=== PATIENT | female | born 1965 | race African-American/Black ===

== ENCOUNTER → 2016-05-28 | Outpatient (CLI) | payer MEDICAID ==
[~2016-05-28] VITALS: Ht 167.6 cm; Wt 90.7 kg
== END | disposition home or self-care (01) ==
LOC: Rad HDHVI 08:24
PROVIDERS: ATTEND Internal Medicine Cardiovascular Disease
DX: I10 Essential (primary) hypertension (principal); E78.00 Pure hypercholesterolemia, unspecified; R42 Dizziness and giddiness
CPT/HCPCS: 93306

== ENCOUNTER → 2016-05-28 | Outpatient (CLI) | payer MEDICARE, MEDICAID ==
[2016-05-28 11:48] LABS: Urine RBC None Seen /hpf (0 - 4)
[2016-05-28 11:54] LABS: Basophils # (auto) 0.1 uL; Basophils % (auto) 0.9 % (0.0-2.0); Eosinophils # (auto) 0.1 uL; Eosinophils % (auto) 1.2 % (0.0-7.0); Hematocrit 38.5 % (36.0-46.0); Hemoglobin 12.8 g/dL (12.2-16.2); Lymphocytes # (auto) 2.9 uL; Lymphocytes % (auto) 48.6 % (10.0-50.0); Mean Corpuscular Hemoglobin 29.6 pg (28.0-32.0); Mean Corpuscular Hgb Conc. 33.3 g/dL (32.0-36.0); Mean Corpuscular Volume 88.7 fL (80.0-100.0); Mean Platelet Volume 8.6 fL (7.4-10.4); Monocytes # (auto) 0.3 uL; Monocytes % (auto) 5.8 % (0.0-12.0); Neutrophils # (auto) 2.6 uL; Neutrophils % (auto) 43.5 % (37.0-80.0); Platelet Count (auto) 454 10^3/uL (140-450); Red Cell Distribution Width 12.8 % (11.6-16.0); White Blood Cell 5.9 10^3/uL (4.4-10.8)
[2016-05-28 12:16] LABS: Urine Bilirubin Negative (Negative); Urine Blood Negative /uL (Negative); Urine Color Yellow (Yellow); Urine Glucose Normal (Normal); Urine Hyaline Cast FEW /lpf (0 - 2); Urine Ketone Negative (Negative); Urine Mucus FEW (None Seen); Urine Nitrite Negative (Negative); Urine Squamous Epithelial Cell FEW /hpf (<5); Urine Urobilinogen Normal (Negative); Urine pH 6.5 (5.0-8.0)
[2016-05-28 12:17] LABS: Albumin 3.9 g/dL (3.4-5.0); Alkaline Phosphatase 126 U/L (45-117); Anion Gap 10 (5-15); Aspartate Aminotransferase 12 U/L (15-37); BUN/Creatinine Ratio 11.1; Bilirubin, Direct < 0.1 mg/dL (0-0.2); Bilirubin, Total 0.3 mg/dL (0.2-1.0); Blood Urea Nitrogen 11 mg/dL (7-18); Calcium 9.3 mg/dL (8.5-10.1); Carbon Dioxide 29 mmol/L (21-32); Chloride 103 mmol/L (98-107); Cholesterol 272 mg/dL (<200); GFR African American 76 mL/min; GFR Non-African American 63 mL/min; Glucose 95 mg/dL (74-106); HDL Cholesterol 69 mg/dL (40-59); LDL Cholesterol 173 mg/dL (<100); Potassium 3.4 mmol/L (3.5-5.1); Sodium 142 mmol/L (136-145); Total Protein 8.7 g/dL (6.4-8.2); Triglycerides 177 mg/dL (<150)
== END | disposition home or self-care (01) ==
LOC: LAB 11:14
PROVIDERS: ATTEND Internal Medicine
DX: D64.9 Anemia, unspecified (principal); I10 Essential (primary) hypertension; E78.00 Pure hypercholesterolemia, unspecified; E03.9 Hypothyroidism, unspecified; E55.9 Vitamin D deficiency, unspecified; K74.1 Hepatic sclerosis; E11.9 Type 2 diabetes mellitus without complications
CPT/HCPCS: 36415; 80048; 80061; 80076; 81001; 82306; 83036; 84443; 85025

== ENCOUNTER → 2016-06-24 | Outpatient (CLI) | payer MEDICARE, MEDICAID ==
[2016-06-24 10:19] LABS: Basophils # (auto) 0.1 uL; Basophils % (auto) 1.3 % (0.0-2.0); Eosinophils # (auto) 0.2 uL; Eosinophils % (auto) 2.9 % (0.0-7.0); Hematocrit 34.7 % (36.0-46.0); Hemoglobin 11.6 g/dL (12.2-16.2); Lymphocytes % (auto) 36.7 % (10.0-50.0); Mean Corpuscular Hemoglobin 29.3 pg (28.0-32.0); Mean Corpuscular Hgb Conc. 33.5 g/dL (32.0-36.0); Mean Corpuscular Volume 87.5 fL (80.0-100.0); Mean Platelet Volume 8.3 fL (7.4-10.4); Monocytes # (auto) 0.4 uL; Monocytes % (auto) 8.2 % (0.0-12.0); Neutrophils # (auto) 2.7 uL; Neutrophils % (auto) 50.9 % (37.0-80.0); Platelet Count (auto) 390 10^3/uL (140-450); Red Cell Distribution Width 13.5 % (11.6-16.0); White Blood Cell 5.3 10^3/uL (4.4-10.8)
[2016-06-24 10:43] LABS: INR 1.03 (0.9-1.15); Partial Thromboplastin Time 28.2 sec (22.64-33.71); Prothrombin Time 10.6 sec (9.37-12.3)
[2016-06-24 10:55] LABS: Potassium 3.1 mmol/L (3.5-5.1)
[2016-06-24 11:04] LABS: BUN/Creatinine Ratio 13.8; Calcium 8.9 mg/dL (8.5-10.1)
== END | disposition home or self-care (01) ==
LOC: LAB 09:32
PROVIDERS: ATTEND Pain Medicine Interventional Pain Medicine
DX: M54.17 Radiculopathy, lumbosacral region (principal)
CPT/HCPCS: 36415; 80048; 85025; 85610; 85730

== ENCOUNTER → 2016-12-18 | Outpatient (CLI) | payer MEDICARE, MEDICAID ==
[2016-12-18 10:07] LABS: Basophils # (auto) 0 uL; Basophils % (auto) 0.7 % (0.0-2.0); CONDITION Y; Eosinophils # (auto) 0.1 uL; Eosinophils % (auto) 1.5 % (0.0-7.0); Hematocrit 37.8 % (36.0-46.0); Hemoglobin 12.8 g/dL (12.2-16.2); Lymphocytes # (auto) 2.3 uL; Lymphocytes % (auto) 35.7 % (10.0-50.0); Mean Corpuscular Hemoglobin 30.5 pg (28.0-32.0); Mean Corpuscular Hgb Conc. 33.9 g/dL (32.0-36.0); Mean Platelet Volume 7.9 fL (6.9-10.8); Monocytes # (auto) 0.5 uL; Monocytes % (auto) 7.8 % (0.0-12.0); Neutrophils # (auto) 3.5 uL; Neutrophils % (auto) 54.3 % (37.0-80.0); Platelet Count (auto) 477 10^3/uL (140-450); Red Cell Distribution Width 12.9 % (11.8-14.3); White Blood Cell 6.5 10^3/uL (4.4-10.8)
[2016-12-18 10:47] LABS: Albumin 3.7 g/dL (3.4-5.0); BUN/Creatinine Ratio 12.1; Bilirubin, Total 0.4 mg/dL (0.2-1.0); Calcium 9.5 mg/dL (8.5-10.1); Magnesium 2.5 mg/dL (1.6-2.6); Phosphorus 2.6 mg/dL (2.5-4.90); Potassium 3.6 mmol/L (3.5-5.1); Total Protein 8.9 g/dL (6.4-8.2); Uric Acid 7.1 mg/dL (2.6-6.0)
[2016-12-19 08:07] LABS: Rheumatoid Arthritis Factor 11.2 IU/mL (0.0-13.9)
[2016-12-20 17:06] LABS: CCP IgG/IgA 7 units (0-19)
== END | disposition home or self-care (01) ==
LOC: LAB 09:37
PROVIDERS: ATTEND Internal Medicine Nephrology
DX: I10 Essential (primary) hypertension (principal); E55.9 Vitamin D deficiency, unspecified; M79.1 Myalgia; M25.50 Pain in unspecified joint; R53.83 Other fatigue
CPT/HCPCS: 36415; 80053; 82306; 82550; 82728; 83735; 84100; 84550; 85025; 85652; 86141

== ENCOUNTER 2017-01-06 19:01 | Emergency (ER) | payer MEDICARE, MEDICAID ==
[~2017-01-06] VITALS: Ht 182.9 cm; Wt 95.3 kg
[2017-01-06 19:40] VITALS: BP 155/103
[2017-01-06 20:08] LABS: Urine RBC None Seen /hpf (0 - 4)
[2017-01-06 20:45] LABS: Urine Bilirubin Negative (Negative); Urine Blood Negative /uL (Negative); Urine Color Yellow (Yellow); Urine Glucose Normal (Normal); Urine Hyaline Cast FEW /lpf (0 - 2); Urine Ketone Negative (Negative); Urine Mucus FEW (None Seen); Urine Nitrite Negative (Negative); Urine Squamous Epithelial Cell FEW /hpf (<5); Urine Urobilinogen Normal (Negative)
[2017-01-06 22:15] LABS: Basophils # (auto) 0.1 uL; Eosinophils # (auto) 0.1 uL; Lymphocytes # (auto) 2.7 uL; Monocytes # (auto) 0.5 uL; Neutrophils # (auto) 4.9 uL; Nucleated Red Blood Cells % 0.1 %; White Blood Cell 8.3 10^3/uL (4.4-10.8)
[2017-01-06 22:17] LABS: Basophils % (auto) 0.7 % (0.0-2.0); Eosinophils % (auto) 1.5 % (0.0-7.0); Hematocrit 38.8 % (36.0-46.0); Hemoglobin 12.9 g/dL (12.2-16.2); Lymphocytes % (auto) 32.7 % (10.0-50.0); Mean Corpuscular Hemoglobin 30.5 pg (28.0-32.0); Mean Corpuscular Hgb Conc. 33.3 g/dL (32.0-36.0); Mean Corpuscular Volume 91.7 fL (80.0-100.0); Mean Platelet Volume 8.5 fL (6.9-10.8); Monocytes % (auto) 6.3 % (0.0-12.0); Neutrophils % (auto) 58.8 % (37.0-80.0); Platelet Count (auto) 448 10^3/uL (140-450); Red Cell Distribution Width 13.7 % (11.8-14.3)
[2017-01-06 22:30] LABS: Albumin 4.2 g/dL (3.4-5.0); Bilirubin, Total 0.3 mg/dL (0.2-1.0); Calcium 9.7 mg/dL (8.5-10.1); Potassium 3.1 mmol/L (3.5-5.1); Total Protein 9.7 g/dL (6.4-8.2)
[2017-01-08] MEDS ORDERED: HYDR-4663 PO (18:58)
[2017-01-08] MEDS ORDERED: HYDR-2651 PO (18:58)
== END 2017-01-06 21:34 | disposition left against medical advice (07) ==
LOC: ER 19:01
DX: R11.2 Nausea with vomiting, unspecified (principal); R10.9 Unspecified abdominal pain; Z53.21 Procedure and treatment not carried out due to patient leaving prior to being seen by health care provider
CPT/HCPCS: 36415; 80053; 81001; 83690; 85025

== ENCOUNTER 2017-01-08 14:30 | Inpatient (IN) | payer MEDICARE, MEDICAID ==
[~2017-01-08] VITALS: Ht 30.5 cm; Wt 107.8 kg
[2017-01-08] MEDS ORDERED: NITROGLYCERIN 0.4 MG SL TAB SL PRN (15:00)
[2017-01-08] MEDS ORDERED: MORPHINE SULF INJ 2 MG/ML SYRINGE 1ML IV PRN (15:00)
[2017-01-08] MEDS ORDERED: HYDROmorphone HCL 2 MG/ML VL ONE (15:05)
[2017-01-08] MEDS: SODIUM CHLORIDE 0.9% 1,000 ML IV SCH (15:30)
[2017-01-08] MEDS ORDERED: LISINOPRIL 20 MG TAB PO ONE (15:45)
[2017-01-08] MEDS ORDERED: ALPRAZolam 0.25 MG TAB PO ONE (15:45)
[2017-01-08] MEDS ORDERED: FAMOTIDINE (10MG/ML) 2ML VL IV ONE (15:45)
[2017-01-08] MEDS ORDERED: cloNIDine HCL 0.1 MG TAB PO ONE (15:45)
[2017-01-08] MEDS ORDERED: CITALOPRAM HYDROBR 20 MG TAB PO ONE (15:45)
[2017-01-08] MEDS ORDERED: METOCLOPRAMIDE HCL 5MG/ml INJ 2ml VIAL IV ONE (15:45)
[2017-01-08] MEDS: NIFEdipine ER 30 MG TAB PO ONE ×2 (15:45→18:25)
[2017-01-08 16:59] LABS: Basophils # (auto) 0.1 uL; Basophils % (auto) 0.9 % (0.0-2.0); Eosinophils # (auto) 0.1 uL; Hematocrit 36.2 % (36.0-46.0); Hemoglobin 12.3 g/dL (12.2-16.2); Lymphocytes # (auto) 2.4 uL; Lymphocytes % (auto) 37.8 % (10.0-50.0); Mean Corpuscular Hemoglobin 30.8 pg (28.0-32.0); Mean Corpuscular Hgb Conc. 34.1 g/dL (32.0-36.0); Mean Corpuscular Volume 90.5 fL (80.0-100.0); Mean Platelet Volume 8.4 fL (6.9-10.8); Monocytes # (auto) 0.5 uL; Neutrophils # (auto) 3.3 uL; Neutrophils % (auto) 51.3 % (37.0-80.0); Nucleated Red Blood Cells % 0.3 %; Platelet Count (auto) 364 10^3/uL (140-450); Red Cell Distribution Width 13.5 % (11.8-14.3); White Blood Cell 6.4 10^3/uL (4.4-10.8)
[2017-01-08 17:08] LABS: INR 0.94 (0.9-1.15); Partial Thromboplastin Time 22.2 sec (22.64-33.71); Prothrombin Time 10.2 sec (9.37-12.3)
[2017-01-08 17:15] VITALS: BP 136/76
[2017-01-08 17:17] LABS: Albumin 3.7 g/dL (3.4-5.0); BUN/Creatinine Ratio 15.2; Calcium 9.8 mg/dL (8.5-10.1); Potassium 3.3 mmol/L (3.5-5.1)
[2017-01-08 17:20] LABS: Bilirubin, Total 0.2 mg/dL (0.2-1.0); Total Protein 8.2 g/dL (6.4-8.2)
[2017-01-08 17:26] VITALS: BP 129/78
[2017-01-08] MEDS ORDERED: CLON0.2D6 PO (18:58)
[2017-01-08] MEDS ORDERED: ALPR0.254 PO (18:58)
[2017-01-08] MEDS ORDERED: SPIR25TA89 PO (18:58)
[2017-01-08] MEDS ORDERED: TEMA30CA PO (18:58)
[2017-01-08] MEDS ORDERED: HYDR25TA35 PO (18:58)
[2017-01-08] MEDS ORDERED: ROSU20TA14 PO (18:58)
[2017-01-08] MEDS ORDERED: CHOL20007 PO (18:58)
[2017-01-08] MEDS ORDERED: HYDR-4683 PO (18:58)
[2017-01-08] MEDS ORDERED: ESCI10TA PO (18:58)
[2017-01-08] MEDS ORDERED: LISI40TA PO (18:58)
[2017-01-08] MEDS ORDERED: NIFE90TA30 PO (18:58)
[2017-01-08] MEDS ORDERED: OMEP20CA74 PO (18:58)
[2017-01-08 22:00] VITALS: BP 107/65
[2017-01-08] MEDS: cloNIDine HCL 0.1 MG TAB PO SCH (22:00)
[2017-01-08] MEDS: METOCLOPRAMIDE HCL 5MG/ml INJ 2ml VIAL IV SCH (23:18)
[2017-01-08] MEDS: ALPRAZolam 0.25 MG TAB PO SCH (23:18)
[2017-01-09] MEDS: SODIUM CHLORIDE 0.9% 1,000 ML IV SCH ×3 (01:30→21:49)
[2017-01-09 05:00] VITALS: BP 107/73
[2017-01-09] MEDS: cloNIDine HCL 0.1 MG TAB PO SCH ×3 (06:00→21:50)
[2017-01-09] MEDS: HYDROmorphone HCL 2 MG/ML VL IV PRN ×2 (06:20→14:51)
[2017-01-09] MEDS: METOCLOPRAMIDE HCL 5MG/ml INJ 2ml VIAL IV SCH ×3 (06:43→21:49)
[2017-01-09] MEDS: ALPRAZolam 0.25 MG TAB PO SCH ×3 (06:43→21:50)
[2017-01-09 09:00] VITALS: BP 109/73
[2017-01-09] MEDS: CITALOPRAM HYDROBR 20 MG TAB PO SCH (09:32)
[2017-01-09] MEDS: FAMOTIDINE (10MG/ML) 2ML VL IV SCH (09:32)
[2017-01-09] MEDS: LISINOPRIL 20 MG TAB PO SCH (09:33)
[2017-01-09] MEDS: NIFEdipine ER 30 MG TAB PO SCH (09:33)
[2017-01-09] MEDS ORDERED: LEXAPRO 10 MG PO SCH (10:00)
[2017-01-09 11:44] VITALS: BP 140/89
[2017-01-09] MEDS: SUCRALFATE 1 GM/10 ML ORAL SUSP PO SCH ×2 (17:02→21:49)
[2017-01-09 17:07] VITALS: BP 148/80
[2017-01-10 05:05] VITALS: BP 143/64
[2017-01-10] MEDS: METOCLOPRAMIDE HCL 5MG/ml INJ 2ml VIAL IV SCH ×3 (06:32→21:53)
[2017-01-10] MEDS: cloNIDine HCL 0.1 MG TAB PO SCH ×3 (06:32→21:54)
[2017-01-10] MEDS: SUCRALFATE 1 GM/10 ML ORAL SUSP PO SCH ×4 (06:33→21:54)
[2017-01-10] MEDS: ALPRAZolam 0.25 MG TAB PO SCH ×3 (06:33→21:53)
[2017-01-10] MEDS: SODIUM CHLORIDE 0.9% 1,000 ML IV SCH ×2 (06:33→17:30)
[2017-01-10] MEDS: HYDROmorphone HCL 2 MG/ML VL IV PRN ×2 (06:34→14:08)
[2017-01-10 07:48] VITALS: BP 147/75
[2017-01-10] MEDS: FAMOTIDINE (10MG/ML) 2ML VL IV SCH (10:16)
[2017-01-10] MEDS: NIFEdipine ER 30 MG TAB PO SCH (10:17)
[2017-01-10] MEDS: CITALOPRAM HYDROBR 20 MG TAB PO SCH (10:18)
[2017-01-10] MEDS: LISINOPRIL 20 MG TAB PO SCH (10:18)
[2017-01-10 13:00] VITALS: BP 145/88
[2017-01-10 17:25] VITALS: BP 97/62
[2017-01-10 22:00] VITALS: BP 102/63
[2017-01-10] MEDS ORDERED: TEMAZEPAM 15 MG CAP PO ONE (22:00)
[2017-01-11] MEDS: HYDROmorphone HCL 2 MG/ML VL IV PRN (05:06)
[2017-01-11 05:15] VITALS: BP_SYST 114; BP_SYST 120; BP_DIAS 49; BP_DIAS 74
[2017-01-11] MEDS: METOCLOPRAMIDE HCL 5MG/ml INJ 2ml VIAL IV SCH ×3 (06:00→21:27)
[2017-01-11] MEDS: ALPRAZolam 0.25 MG TAB PO SCH ×3 (06:00→21:26)
[2017-01-11] MEDS: cloNIDine HCL 0.1 MG TAB PO SCH ×3 (06:00→21:25)
[2017-01-11] MEDS: SODIUM CHLORIDE 0.9% 1,000 ML IV SCH ×3 (06:04→23:30)
[2017-01-11] MEDS: SUCRALFATE 1 GM/10 ML ORAL SUSP PO SCH ×4 (06:06→21:25)
[2017-01-11] MEDS ORDERED: LIDOCAINE VISCOUS 2% 15ML UD ONE (08:10)
[2017-01-11] MEDS ORDERED: diphenhdrAMINE HCL 50 MG/1 ML VL ONE (08:10)
[2017-01-11] MEDS ORDERED: SODIUM CHLORIDE LOCK 10 ML ONE (08:10)
[2017-01-11] MEDS ORDERED: fentaNYL CITRATE 100 MCG/2 ML VL ONE (08:10)
[2017-01-11] MEDS ORDERED: MIDAZOLAM HCL 5 MG/ML-1ML VIAL ONE (08:10)
[2017-01-11 09:00] VITALS: BP 111/64
[2017-01-11] MEDS: CITALOPRAM HYDROBR 20 MG TAB PO SCH (10:00)
[2017-01-11] MEDS: NIFEdipine ER 30 MG TAB PO SCH (10:00)
[2017-01-11] MEDS ORDERED: HYDROmorphone HCL 2 MG/ML VL IM ONE (12:15)
[2017-01-11 13:00] VITALS: BP 106/64
[2017-01-11] MEDS ORDERED: PANTOPRAZOLE 40 MG TAB PO ONE (14:00)
[2017-01-11] MEDS: LISINOPRIL 20 MG TAB PO SCH (14:13)
[2017-01-11] MEDS ORDERED: HYDROmorphone HCL 2 MG/ML VL IM PRN (16:00)
[2017-01-11] MEDS: HYDROmorphone HCL 2 MG/ML VL IM PRN ×2 (16:32→21:30)
[2017-01-11 17:55] VITALS: BP 124/71
[2017-01-11 20:00] VITALS: BP 139/92
[2017-01-11 21:21] VITALS: BP 139/92
[2017-01-11] MEDS: PANTOPRAZOLE 40 MG TAB PO SCH (21:26)
[2017-01-12] VITALS (7 sets, daily range): BP systolic 83–120; BP diastolic 51–70
[2017-01-12] MEDS: cloNIDine HCL 0.1 MG TAB PO SCH ×3 (05:31→22:00)
[2017-01-12] MEDS: ALPRAZolam 0.25 MG TAB PO SCH ×3 (05:32→21:09)
[2017-01-12] MEDS: SUCRALFATE 1 GM/10 ML ORAL SUSP PO SCH ×4 (05:32→21:07)
[2017-01-12] MEDS: METOCLOPRAMIDE HCL 5MG/ml INJ 2ml VIAL IV SCH ×3 (06:00→21:10)
[2017-01-12] MEDS: HYDROmorphone HCL 2 MG/ML VL IV PRN ×3 (07:38→18:56)
[2017-01-12 08:08] LABS: Basophils # (auto) 0.1 uL; Eosinophils # (auto) 0.2 uL; Eosinophils % (auto) 4.1 % (0.0-7.0); Hemoglobin 11.4 g/dL (12.2-16.2); Lymphocytes % (auto) 40.8 % (10.0-50.0); Mean Corpuscular Hemoglobin 30.1 pg (28.0-32.0); Mean Corpuscular Hgb Conc. 33.6 g/dL (32.0-36.0); Mean Corpuscular Volume 89.7 fL (80.0-100.0); Mean Platelet Volume 8.4 fL (6.9-10.8); Monocytes # (auto) 0.4 uL; Monocytes % (auto) 8.5 % (0.0-12.0); Neutrophils # (auto) 2.3 uL; Neutrophils % (auto) 45.6 % (37.0-80.0); Nucleated Red Blood Cells % 0.2 %; Platelet Count (auto) 353 10^3/uL (140-450); Red Cell Distribution Width 13.3 % (11.8-14.3)
[2017-01-12] MEDS ORDERED: SODIUM CHLORIDE LOCK 10 ML ONE (08:26)
[2017-01-12] MEDS ORDERED: LIDOCAINE VISCOUS 2% 15ML UD ONE (08:26)
[2017-01-12] MEDS ORDERED: diphenhdrAMINE HCL 50 MG/1 ML VL ONE (08:27)
[2017-01-12] MEDS ORDERED: NALOXONE HCL 0.4 MG/ML VIAL ONE (08:32)
[2017-01-12] MEDS ORDERED: FLUMAZENIL 0.1 MG/ML INJ 10ML MDV IV ONE (08:32)
[2017-01-12] MEDS: SODIUM CHLORIDE 0.9% 1,000 ML IV SCH ×2 (09:30→19:30)
[2017-01-12] MEDS: NIFEdipine ER 30 MG TAB PO SCH (10:00)
[2017-01-12] MEDS: MIDAZOLAM HCL 5 MG/ML-1ML VIAL ONE ×2 (11:40→11:43)
[2017-01-12] MEDS: fentaNYL CITRATE 100 MCG/2 ML VL ONE ×2 (11:40→11:43)
[2017-01-12] MEDS: LISINOPRIL 20 MG TAB PO SCH (16:21)
[2017-01-12] MEDS: CITALOPRAM HYDROBR 20 MG TAB PO SCH (16:21)
[2017-01-12] MEDS: PANTOPRAZOLE 40 MG TAB PO SCH ×2 (16:22→21:09)
[2017-01-13 05:00] VITALS: BP 103/64
[2017-01-13] MEDS: cloNIDine HCL 0.1 MG TAB PO SCH (06:00)
[2017-01-13] MEDS: METOCLOPRAMIDE HCL 5MG/ml INJ 2ml VIAL IV SCH (06:16)
[2017-01-13] MEDS: ALPRAZolam 0.25 MG TAB PO SCH (06:16)
[2017-01-13] MEDS: SUCRALFATE 1 GM/10 ML ORAL SUSP PO SCH ×2 (06:16→11:33)
[2017-01-13] MEDS: SODIUM CHLORIDE 0.9% 1,000 ML IV SCH (06:18)
[2017-01-13] MEDS: HYDROmorphone HCL 2 MG/ML VL IV PRN (06:38)
[2017-01-13 09:00] VITALS: BP 115/59
[2017-01-13] MEDS: NIFEdipine ER 30 MG TAB PO SCH (09:10)
[2017-01-13] MEDS: LISINOPRIL 20 MG TAB PO SCH (09:11)
[2017-01-13] MEDS: PANTOPRAZOLE 40 MG TAB PO SCH (10:13)
[2017-01-13] MEDS: CITALOPRAM HYDROBR 20 MG TAB PO SCH (10:13)
[2017-01-13] MEDS: HYDROmorphone HCL 2 MG/ML VL IM PRN (10:51)
[2017-01-13] MEDS ORDERED: PANT40T PO (13:10)
[2017-01-13 13:11] VITALS: BP 115/59
[2017-01-13] MEDS ORDERED: PANT40TA2 PO (13:20)
== END 2017-01-13 14:30 | disposition home or self-care (01) | DRG 379 ==
LOC: EAST 14:30 → CENTRAL 17:15
PROVIDERS: ADMIT Internal Medicine Cardiovascular Disease; ATTEND Internal Medicine Cardiovascular Disease
PROC: 0DB68ZX Excision of Stomach, Via Natural or Artificial Opening Endoscopic, Diagnostic (ICD-10-PCS; principal; 2017-01-12 11:36)
DX: K25.4 Chronic or unspecified gastric ulcer with hemorrhage (principal); I50.9 Heart failure, unspecified; N28.1 Cyst of kidney, acquired; I10 Essential (primary) hypertension; K52.9 Noninfective gastroenteritis and colitis, unspecified; E87.6 Hypokalemia; E78.00 Pure hypercholesterolemia, unspecified; E86.9 Volume depletion, unspecified; G47.30 Sleep apnea, unspecified; I25.10 Atherosclerotic heart disease of native coronary artery without angina pectoris; J45.909 Unspecified asthma, uncomplicated; F41.9 Anxiety disorder, unspecified; F32.9 Major depressive disorder, single episode, unspecified; K29.70 Gastritis, unspecified, without bleeding; K44.9 Diaphragmatic hernia without obstruction or gangrene; K59.00 Constipation, unspecified; Z85.6 Personal history of leukemia; Z86.73 Personal history of transient ischemic attack (TIA), and cerebral infarction without residual deficits; Z90.710 Acquired absence of both cervix and uterus; Z88.0 Allergy status to penicillin
CPT/HCPCS: 36415; 43239; 71010; 80053; 81001; 83690; 85025; 85610; 85730; J2250; J3490

== ENCOUNTER → 2017-01-08 | Outpatient (CLI) | payer MEDICARE, MEDICAID ==
[~2017-01-08] MED LIST: ALPR0.254 PO; CHOL20007 PO; CLON0.2D6 PO; ESCI10TA PO; HYDR-4683 PO; HYDR25TA35 PO; LISI40TA PO; METOCLOPRAMIDE HCL 5MG/ml INJ 2ml VIAL IV ONE; METOCLOPRAMIDE HCL 5MG/ml INJ 2ml VIAL ONE; NIFE90TA30 PO; OMEP20CA74 PO; PANT40T PO; PANT40TA2 PO; ROSU20TA14 PO; SODIUM CHLORIDE 0.9% 1,000 ML IV ONE; SPIR25TA89 PO; TEMA30CA PO
[2017-01-08 11:15] VITALS: BP 183/110
[2017-01-08 13:55] VITALS: BP 158/94
== END | disposition home or self-care (01) ==
LOC: CHF HDHVI 11:17
PROVIDERS: ATTEND Internal Medicine Cardiovascular Disease
DX: R11.2 Nausea with vomiting, unspecified (principal)

== ENCOUNTER → 2017-04-07 | Outpatient (CLI) | payer MEDICARE, MEDICAID ==
[~2017-04-07] MED LIST changes: -METOCLOPRAMIDE HCL 5MG/ml INJ 2ml VIAL IV ONE; -METOCLOPRAMIDE HCL 5MG/ml INJ 2ml VIAL ONE; -PANT40TA2 PO; -SODIUM CHLORIDE 0.9% 1,000 ML IV ONE
[2017-04-07 16:50] LABS: BUN/Creatinine Ratio 15.5; Calcium 9.3 mg/dL (8.5-10.1); Potassium 3.7 mmol/L (3.5-5.1)
== END | disposition home or self-care (01) ==
LOC: LAB 12:32
PROVIDERS: ATTEND Internal Medicine Cardiovascular Disease
DX: I10 Essential (primary) hypertension (principal)
CPT/HCPCS: 36415; 80048

== ENCOUNTER → 2017-04-22 | Outpatient (CLI) | payer MEDICARE, MEDICAID ==
[~2017-04-22] VITALS: Ht 167.6 cm; Wt 104.3 kg
== END | disposition home or self-care (01) ==
LOC: Rad HDHVI 08:36
PROVIDERS: ATTEND Internal Medicine Cardiovascular Disease
DX: I10 Essential (primary) hypertension (principal); R56.9 Unspecified convulsions; R55 Syncope and collapse; E78.1 Pure hyperglyceridemia
CPT/HCPCS: 78452; 93017; 93306; 96374; A9500

== ENCOUNTER 2017-12-13 18:55 | Emergency (ER) | payer MEDICARE, MEDICAID ==
[~2017-12-13] VITALS: Ht 167.6 cm; Wt 98.0 kg
[~2017-12-13 18:55] MED LIST changes: +HYDR-4296 PO; -HYDR25TA35 PO; +SPIR25TA8 PO; -SPIR25TA89 PO
[2017-12-13 19:36] VITALS: BP 124/77
[2017-12-13 20:20] LABS: Basophils # (auto) 0.1 uL; Eosinophils # (auto) 0.5 uL; Eosinophils % (auto) 9.3 % (0.0-7.0); Hematocrit 35.9 % (36.0-46.0); Hemoglobin 12.3 g/dL (12.2-16.2); Lymphocytes # (auto) 2.4 uL; Mean Corpuscular Hemoglobin 30.8 pg (28.0-32.0); Mean Corpuscular Hgb Conc. 34.2 g/dL (32.0-36.0); Mean Corpuscular Volume 90.3 fL (80.0-100.0); Monocytes # (auto) 0.5 uL; Monocytes % (auto) 8.2 % (0.0-12.0); Neutrophils # (auto) 2.1 uL; Neutrophils % (auto) 37.5 % (37.0-80.0); Nucleated Red Blood Cells % 0.2 %; Platelet Count (auto) 336 10^3/uL (140-450); Red Blood Cells 3.98 10^6/uL (4.0-5.20); Red Cell Distribution Width 13.9 % (11.8-14.3); White Blood Cell 5.5 10^3/uL (4.4-10.8)
[2017-12-13 20:43] LABS: Alanine Aminotransferase 26 U/L (13-56); Albumin 3.9 g/dL (3.4-5.0); Alkaline Phosphatase 90 U/L (45-117); Anion Gap 3 (5-15); Aspartate Aminotransferase 19 U/L (15-37); BUN/Creatinine Ratio 14.4; Bilirubin, Total 0.3 mg/dL (0.2-1.0); Blood Urea Nitrogen 18 mg/dL (7-18); Calcium 8.9 mg/dL (8.5-10.1); Carbon Dioxide 26 mmol/L (21-32); Chloride 111 mmol/L (98-107); GFR African American 58 mL/min; GFR Non-African American 48 mL/min; Glucose 93 mg/dL (74-106); Magnesium 2.6 mg/dL (1.6-2.6); Potassium 3.6 mmol/L (3.5-5.1); Sodium 140 mmol/L (136-145); Total Protein 8.3 g/dL (6.4-8.2)
== END 2017-12-13 23:30 | disposition left against medical advice (07) ==
LOC: ER 18:55
DX: R33.9 Retention of urine, unspecified (principal); Z53.21 Procedure and treatment not carried out due to patient leaving prior to being seen by health care provider
CPT/HCPCS: 36415; 74176; 80053; 83735; 84484; 85025; 93005

== ENCOUNTER → 2017-12-14 | Outpatient (CLI) | payer MEDICARE, MEDICAID ==
[~2017-12-14] MED LIST changes: +CYANOCOBALAMIN (B-12) 1000 MCG/1 ML VIAL IM ONE; +CYANOCOBALAMIN (B-12) 1000 MCG/1 ML VIAL ONE; +MAGNESIUM CITRATE SOLUTION 300 ML BTL ONE; +MAGNESIUM CITRATE SOLUTION 300 ML BTL PO ONE
[2017-12-14 13:30] VITALS: BP 137/101
[2017-12-14 14:10] VITALS: BP 166/95
== END | disposition home or self-care (01) ==
LOC: CHF HDHVI 13:40
PROVIDERS: ATTEND Internal Medicine Cardiovascular Disease
DX: K59.00 Constipation, unspecified (principal); R53.83 Other fatigue; N39.0 Urinary tract infection, site not specified; R33.9 Retention of urine, unspecified
CPT/HCPCS: 96372; G0463; J3420

== ENCOUNTER → 2017-12-28 | Outpatient (CLI) | payer MEDICARE, MEDICAID ==
[~2017-12-28] MED LIST changes: -CYANOCOBALAMIN (B-12) 1000 MCG/1 ML VIAL IM ONE; -CYANOCOBALAMIN (B-12) 1000 MCG/1 ML VIAL ONE; -MAGNESIUM CITRATE SOLUTION 300 ML BTL ONE; -MAGNESIUM CITRATE SOLUTION 300 ML BTL PO ONE
[2017-12-28 16:05] LABS: Urine Blood Negative /uL (Negative); Urine Specific Gravity 1.019 (1.001-1.035)
== END | disposition home or self-care (01) ==
LOC: LAB 11:01
PROVIDERS: ATTEND Internal Medicine
DX: N39.0 Urinary tract infection, site not specified (principal); Z88.0 Allergy status to penicillin
CPT/HCPCS: 81003; 87086

== ENCOUNTER → 2018-05-09 | Outpatient (CLI) | payer MEDICARE, MEDICAID ==
[2018-05-09 16:01] LABS: Basophils # (auto) 0 uL; Basophils % (auto) 0.8 % (0.0-2.0); Eosinophils # (auto) 0.3 uL; Eosinophils % (auto) 4.8 % (0.0-7.0); Hematocrit 38.6 % (36.0-46.0); Hemoglobin 12.8 g/dL (12.2-16.2); Lymphocytes # (auto) 2.6 uL; Lymphocytes % (auto) 43.7 % (10.0-50.0); Mean Corpuscular Hemoglobin 29.7 pg (28.0-32.0); Mean Corpuscular Hgb Conc. 33.2 g/dL (32.0-36.0); Mean Corpuscular Volume 89.4 fL (80.0-100.0); Monocytes # (auto) 0.4 uL; Monocytes % (auto) 7.2 % (0.0-12.0); Neutrophils # (auto) 2.6 uL; Neutrophils % (auto) 43.5 % (37.0-80.0); Nucleated Red Blood Cells % 0.5 %; Platelet Count (auto) 354 10^3/uL (140-450); Red Blood Cells 4.31 10^6/uL (4.0-5.20); Red Cell Distribution Width 12.8 % (11.8-14.3); White Blood Cell 5.9 10^3/uL (4.4-10.8)
[2018-05-09 16:13] LABS: BUN/Creatinine Ratio 12.9; Calcium 9.4 mg/dL (8.5-10.1); Potassium 3.6 mmol/L (3.5-5.1)
[2018-05-09 16:17] LABS: Bilirubin, Direct 0.1 mg/dL (0-0.2); Bilirubin, Total 0.4 mg/dL (0.2-1.0); Total Protein 8.4 g/dL (6.4-8.2)
== END | disposition home or self-care (01) ==
LOC: LAB 12:18
PROVIDERS: ATTEND Internal Medicine Cardiovascular Disease
DX: K74.1 Hepatic sclerosis (principal); E11.9 Type 2 diabetes mellitus without complications; E55.9 Vitamin D deficiency, unspecified; E03.9 Hypothyroidism, unspecified
CPT/HCPCS: 36415; 80048; 80061; 80076; 82306; 83036; 84443; 85025

== ENCOUNTER → 2018-09-13 | Outpatient (CLI) | payer MEDICARE, MEDICAID | END | disposition home or self-care (01) | LOC: Rad HDHVI 15:04 | PROVIDERS: ATTEND Internal Medicine Cardiovascular Disease | DX: I08.2 Rheumatic disorders of both aortic and tricuspid valves (principal); R06.02 Shortness of breath; G45.9 Transient cerebral ischemic attack, unspecified; Z86.73 Personal history of transient ischemic attack (TIA), and cerebral infarction without residual deficits | CPT/HCPCS: 93306; 93880 ==

== ENCOUNTER 2018-09-25 11:50 | Emergency (ER) | payer MEDICARE, MEDICAID | END 2018-09-25 15:25 | disposition left against medical advice (07) | LOC: ER 11:50 | DX: R07.9 Chest pain, unspecified (principal); Z53.21 Procedure and treatment not carried out due to patient leaving prior to being seen by health care provider | CPT/HCPCS: 93005 ==

== ENCOUNTER → 2018-10-17 | Outpatient (CLI) | payer MEDICARE, MEDICAID ==
[~2018-10-17] VITALS: Ht 167.6 cm; Wt 95.7 kg
[~2018-10-17] MED LIST changes: +ADENOSINE 80 MG in GIVE UN-DILUTED 0 ML IV ONE; +ADENOSINE 90 MG/30 ML INJ IV ONE; +cloNIDine HCL 0.1 MG TAB ONE
== END | disposition home or self-care (01) ==
LOC: Rad HDHVI 13:06
PROVIDERS: ATTEND Internal Medicine Cardiovascular Disease
DX: I10 Essential (primary) hypertension (principal); I63.9 Cerebral infarction, unspecified; R07.89 Other chest pain; R06.02 Shortness of breath; R42 Dizziness and giddiness
CPT/HCPCS: 78452; 93005; 96374; 96375; A9500; J0153

== ENCOUNTER → 2018-12-09 | Outpatient (CLI) | payer MEDICARE, MEDICAID ==
[~2018-12-09] MED LIST changes: -ADENOSINE 80 MG in GIVE UN-DILUTED 0 ML IV ONE; -ADENOSINE 90 MG/30 ML INJ IV ONE; -HYDR-4683 PO; +HYDR-4833 PO; -cloNIDine HCL 0.1 MG TAB ONE
== END | disposition home or self-care (01) ==
LOC: Rad HDHVI 12:00
PROVIDERS: ATTEND Internal Medicine Cardiovascular Disease
DX: R51 Headache (principal)
CPT/HCPCS: 70450

== ENCOUNTER → 2018-12-20 | Outpatient (CLI) | payer MEDICARE, MEDICAID ==
[2018-12-20 15:58] LABS: Basophils # (auto) 0.1 uL; Basophils % (auto) 1.4 % (0.0-2.0); Eosinophils # (auto) 0.1 uL; Eosinophils % (auto) 2.2 % (0.0-7.0); Hematocrit 44.5 % (36.0-46.0); Hemoglobin 14.6 g/dL (12.2-16.2); Lymphocytes % (auto) 42.1 % (10.0-50.0); Mean Corpuscular Hemoglobin 31.5 pg (28.0-32.0); Mean Corpuscular Hgb Conc. 32.9 g/dL (32.0-36.0); Mean Corpuscular Volume 95.9 fL (80.0-100.0); Monocytes # (auto) 0.3 uL; Monocytes % (auto) 6.6 % (0.0-12.0); Neutrophils # (auto) 2.3 uL; Neutrophils % (auto) 47.7 % (37.0-80.0); Nucleated Red Blood Cells % 0.7 %; Platelet Count (auto) 275 10^3/uL (140-450); Red Blood Cells 4.64 10^6/uL (4.0-5.20); Red Cell Distribution Width 13.9 % (11.8-14.3); White Blood Cell 4.7 10^3/uL (4.4-10.8)
[2018-12-20 16:10] LABS: Potassium 3.9 mmol/L (3.5-5.1)
[2018-12-20 16:21] LABS: Albumin 3.7 g/dL (3.4-5.0); Bilirubin, Total 0.4 mg/dL (0.2-1.0); Calcium 9.6 mg/dL (8.5-10.1); Total Protein 7.9 g/dL (6.4-8.2)
[2018-12-20 16:42] LABS: Free T4 (Free Thyroxine) 0.96 ng/dL (0.89-1.76)
== END | disposition home or self-care (01) ==
LOC: LAB 09:06
PROVIDERS: ATTEND Internal Medicine Cardiovascular Disease
DX: E03.9 Hypothyroidism, unspecified (principal); K90.9 Intestinal malabsorption, unspecified; D51.9 Vitamin B12 deficiency anemia, unspecified; Z79.899 Other long term (current) drug therapy
CPT/HCPCS: 36415; 80053; 80061; 82306; 82607; 83036; 84439; 84443; 85025

== ENCOUNTER → 2018-12-27 | Outpatient (CLI) | payer MEDICARE, MEDICAID ==
[~2018-12-27] MED LIST changes: +READI-CAT 2 (BARIUM SULF)(VANILLA SMOOTHIE) 450ML ONE
== END | disposition home or self-care (01) ==
LOC: Rad HDHVI 12:46
PROVIDERS: ATTEND Internal Medicine Cardiovascular Disease
DX: K42.9 Umbilical hernia without obstruction or gangrene (principal); M48.061 Spinal stenosis, lumbar region without neurogenic claudication; I70.0 Atherosclerosis of aorta
CPT/HCPCS: 72131; 74176

== ENCOUNTER → 2019-01-03 | Outpatient (CLI) | payer MEDICARE, MEDICAID ==
[~2019-01-03] MED LIST changes: +ALPR0.25 PO; +CARI-277 PO; +CLON0.1T PO; +DEXL60CA3 PO; +HYDR-531 PO; +IBUP800T24 PO; +METH-867 PO; +NEBI10TA2 PO; -READI-CAT 2 (BARIUM SULF)(VANILLA SMOOTHIE) 450ML ONE
[2019-01-03 10:52] VITALS: BP 165/95
--- NOTE | 2019-01-03 10:52 | NUR ---
CHF PT ARRIVED AT THE [facility]F [facility] FOR PREOP. VSS A/O X 4 0 DISTRESS
[2019-01-03 11:09] VITALS: BP 160/88
--- NOTE | 2019-01-03 11:09 | NUR ---
Pre-Op Discharge Summary: See e-MAR for any medications given for this visit. Pre-op orders received and carried out per MD of EKG, LABS and chest xrays. Patient given a copy of EKG with instructions to go to [facility] out patient for further follow up care.
[2019-01-03 12:26] LABS: Basophils # (auto) 0.1 uL; Basophils % (auto) 1.2 % (0.0-2.0); Eosinophils # (auto) 0.1 uL; Eosinophils % (auto) 1.3 % (0.0-7.0); Hematocrit 41.3 % (36.0-46.0); Hemoglobin 14.4 g/dL (12.2-16.2); Lymphocytes # (auto) 2.7 uL; Lymphocytes % (auto) 39.8 % (10.0-50.0); Mean Corpuscular Hemoglobin 32.3 pg (28.0-32.0); Mean Corpuscular Hgb Conc. 34.8 g/dL (32.0-36.0); Mean Corpuscular Volume 92.9 fL (80.0-100.0); Monocytes # (auto) 0.4 uL; Monocytes % (auto) 6.5 % (0.0-12.0); Neutrophils # (auto) 3.5 uL; Neutrophils % (auto) 51.2 % (37.0-80.0); Nucleated Red Blood Cells % 0.1 %; Platelet Count (auto) 290 10^3/uL (140-450); Red Blood Cells 4.44 10^6/uL (4.0-5.20); Red Cell Distribution Width 13.2 % (11.8-14.3); White Blood Cell 6.9 10^3/uL (4.4-10.8)
[2019-01-03 12:35] LABS: INR 0.93 (0.9-1.15); Partial Thromboplastin Time 28.7 sec (23.64-32.05)
[2019-01-03 12:42] LABS: Potassium 4.2 mmol/L (3.5-5.1)
[2019-01-03 13:06] LABS: BUN/Creatinine Ratio 17.9; Calcium 9.3 mg/dL (8.5-10.1)
== END | disposition home or self-care (01) ==
LOC: Rad HDHVI 10:31
PROVIDERS: ATTEND Internal Medicine Cardiovascular Disease
DX: Z01.812 Encounter for preprocedural laboratory examination (principal); Q25.46 Tortuous aortic arch; R42 Dizziness and giddiness; R06.02 Shortness of breath; I11.0 Hypertensive heart disease with heart failure; I50.9 Heart failure, unspecified
CPT/HCPCS: 36415; 71046; 80048; 85025; 85610; 85730; 93005; G0463

== ENCOUNTER 2019-01-05 07:36 | Day surgery (SDC) | payer MEDICARE, MEDICAID ==
[~2019-01-05] VITALS: Ht 167.6 cm; Wt 97.1 kg
[~2019-01-05 07:36] MED LIST changes: -ALPR0.254 PO; -CHOL20007 PO; -CLON0.2D6 PO; -HYDR-4833 PO; -LISI40TA PO; -OMEP20CA74 PO; -PANT40T PO
[2019-01-05] MEDS ORDERED: LIDOCAINE 2%HCL (LOCAL ANESTH.) INJ 20ML MDV ONE (10:02)
[2019-01-05] MEDS ORDERED: IOHEXOL 350 MG/ML 100ML IJ ONE (10:02)
[2019-01-05] MEDS ORDERED: methylPREDNISolone SOD SUCC 125 MG/2 ML VL ONE (10:06)
[2019-01-05] MEDS ORDERED: fentaNYL CITRATE 100 MCG/2 ML VL ONE (10:06)
[2019-01-05] MEDS ORDERED: MIDAZOLAM HCL 1MG/1ML-2 ML VIAL ONE (10:06)
[2019-01-05] MEDS ORDERED: diphenhdrAMINE HCL 50 MG/1 ML VL ONE (10:06)
[2019-01-05] MEDS ORDERED: ANGIOMAX 250 MG VIAL IV ONE (10:06)
[2019-01-05] MEDS ORDERED: FAMOTIDINE (10MG/ML) 2ML VL IV ONE (10:07)
[2019-01-05] MEDS ORDERED: SODIUM CHL 0.9% 0 ML ONE (10:07)
[2019-01-05] MEDS ORDERED: EPINEPHrine HCL 1 MG/1 ML AMP ONE (10:17)
== END 2019-01-05 13:04 | disposition home or self-care (01) ==
LOC: CATH 07:36
PROVIDERS: ATTEND Internal Medicine Cardiovascular Disease
DX: I11.0 Hypertensive heart disease with heart failure (principal); I50.30 Unspecified diastolic (congestive) heart failure; E66.9 Obesity, unspecified; E78.5 Hyperlipidemia, unspecified; I25.2 Old myocardial infarction; J45.909 Unspecified asthma, uncomplicated; F17.210 Nicotine dependence, cigarettes, uncomplicated; M19.90 Unspecified osteoarthritis, unspecified site; Z86.73 Personal history of transient ischemic attack (TIA), and cerebral infarction without residual deficits; Z79.899 Other long term (current) drug therapy; Z88.0 Allergy status to penicillin; Z91.041 Radiographic dye allergy status; Z68.34 Body mass index [BMI] 34.0-34.9, adult
CPT/HCPCS: 93458; C1760; C1894; J1200; J1644; J2250; J2930; J3010; J3490; Q9967; 99152; J0171

== ENCOUNTER → 2019-01-24 | Outpatient (CLI) | payer MEDICARE, MEDICAID ==
[2019-01-24 13:01] VITALS: BP 139/83
[2019-01-24 13:02] VITALS: BP 163/95
--- NOTE | 2019-01-24 13:02 | NUR ---
Signature Attestation Statement: I KHADRA SHERIDAN performed this procedure EECP on this patient. Addendum: 01/24/19 at 1302 by KHADRA SHERIDAN HDHI2 Amended: Links added.
--- NOTE | 2019-01-24 13:03 | NUR ---
Signature Attestation Statement: I KHADRA SHERIDAN performed this procedure EECP on this patient. Addendum: 01/24/19 at 1303 by KHADRA SHERIDAN HDHI2 Amended: Links added.
--- NOTE | 2019-01-24 13:03 | NUR ---
Signature Attestation Statement: I KHADRA SHERIDAN performed this procedure EECP on this patient. Addendum: 01/24/19 at 1304 by KHADRA SHERIDAN HDHI2 Amended: Links added.
--- NOTE | 2019-01-24 13:06 | NUR ---
Signature Attestation Statement: I KHADRA SHERIDAN performed this procedure EECP on this patient. Addendum: 01/24/19 at 1306 by KHADRA SHERIDAN HDHI2 Amended: Links added.
== END | disposition home or self-care (01) ==
LOC: CHF HDHVI 11:06
PROVIDERS: ATTEND Internal Medicine Cardiovascular Disease
DX: I10 Essential (primary) hypertension (principal); J44.9 Chronic obstructive pulmonary disease, unspecified; I25.758 Atherosclerosis of native coronary artery of transplanted heart with other forms of angina pectoris; I11.0 Hypertensive heart disease with heart failure; I50.23 Acute on chronic systolic (congestive) heart failure; I73.9 Peripheral vascular disease, unspecified; R09.89 Other specified symptoms and signs involving the circulatory and respiratory systems; D64.9 Anemia, unspecified; R42 Dizziness and giddiness; Z98.61 Coronary angioplasty status
CPT/HCPCS: G0166

== ENCOUNTER → 2019-01-25 | Outpatient (CLI) | payer MEDICARE, MEDICAID ==
[2019-01-25 12:07] VITALS: BP 163/100
--- NOTE | 2019-01-25 12:07 | NUR ---
Signature Attestation Statement: I KHADRA SHERIDAN performed this procedure EECP on this patient. Addendum: 01/25/19 at 1208 by KHADRA SHERIDAN HDHI2 Amended: Links added.
--- NOTE | 2019-01-25 12:09 | NUR ---
Signature Attestation Statement: I KHADRA SHERIDAN performed this procedure EECP on this patient. Addendum: 01/25/19 at 1209 by KHADRA SHERIDAN HDHI2 Amended: Links added.
--- NOTE | 2019-01-25 12:34 | NUR ---
Signature Attestation Statement: I KHADRA SHERIDAN performed this procedure EECP on this patient. Addendum: 01/25/19 at 1235 by KHADRA SHERIDAN HDHI2 Amended: Links added.
[2019-01-25 12:35] VITALS: BP 186/105
--- NOTE | 2019-01-25 12:35 | NUR ---
Signature Attestation Statement: I KHADRA SHERIDAN performed this procedure EECP on this patient. Addendum: 01/25/19 at 1236 by KHADRA SHERIDAN HDHI2 Amended: Links added.
== END | disposition home or self-care (01) ==
LOC: CHF HDHVI 10:50
PROVIDERS: ATTEND Internal Medicine Cardiovascular Disease
DX: I25.758 Atherosclerosis of native coronary artery of transplanted heart with other forms of angina pectoris (principal); I11.0 Hypertensive heart disease with heart failure; I50.23 Acute on chronic systolic (congestive) heart failure; R09.89 Other specified symptoms and signs involving the circulatory and respiratory systems; R06.02 Shortness of breath; D64.9 Anemia, unspecified; R07.89 Other chest pain; R42 Dizziness and giddiness
CPT/HCPCS: G0166

== ENCOUNTER → 2019-01-26 | Outpatient (CLI) | payer MEDICARE, MEDICAID ==
[2019-01-26 12:39] VITALS: BP_SYST 144; BP_SYST 160; BP_DIAS 103; BP_DIAS 86
--- NOTE | 2019-01-26 12:39 | NUR ---
Signature Attestation Statement: I KHADRA SHERIDAN performed this procedure EECP on this patient. Addendum: 01/26/19 at 1239 by KHADRA SHERIDAN HDHI2 Amended: Links added.
--- NOTE | 2019-01-26 12:40 | NUR ---
Signature Attestation Statement: I KHADRA SHERIDAN performed this procedure EECP on this patient. Addendum: 01/26/19 at 1240 by KHADRA SHERIDAN HDHI2 Amended: Links added.
--- NOTE | 2019-01-26 12:41 | NUR ---
Signature Attestation Statement: I KHADRA SHERIDAN performed this procedure EECP on this patient. Addendum: 01/26/19 at 1241 by KHADRA SHERIDAN HDHI2 Amended: Links added.
--- NOTE | 2019-01-26 12:46 | NUR ---
Signature Attestation Statement: I KHADRA SHERIDAN performed this procedure EECP on this patient. Addendum: 01/26/19 at 1246 by KHADRA SHERIDAN HDHI2 Amended: Links added.
== END | disposition home or self-care (01) ==
LOC: CHF HDHVI 10:49
PROVIDERS: ATTEND Internal Medicine Cardiovascular Disease
DX: I11.0 Hypertensive heart disease with heart failure (principal); I50.33 Acute on chronic diastolic (congestive) heart failure; I25.758 Atherosclerosis of native coronary artery of transplanted heart with other forms of angina pectoris; D64.9 Anemia, unspecified
CPT/HCPCS: G0166

== ENCOUNTER → 2019-01-27 | Outpatient (CLI) | payer MEDICARE, MEDICAID ==
[2019-01-27 11:45] VITALS: BP 157/88
--- NOTE | 2019-01-27 11:45 | NUR ---
Signature Attestation Statement: I KHADRA SHERIDAN performed this procedure EECP on this patient. Addendum: 01/27/19 at 1146 by KHADRA SHERIDAN HDHI2 Amended: Links added.
--- NOTE | 2019-01-27 12:18 | NUR ---
Signature Attestation Statement: I KHADRA SHERIDAN performed this procedure EECP on this patient. Addendum: 01/27/19 at 1219 by KHADRA SHERIDAN HDHI2 Amended: Links added.
[2019-01-27 12:19] VITALS: BP 161/99
--- NOTE | 2019-01-27 12:30 | NUR ---
Signature Attestation Statement: I KHADRA SHERIDAN performed this procedure EECP on this patient. Addendum: 01/27/19 at 1230 by KHADRA SHERIDAN HDHI2 Amended: Links added.
== END | disposition home or self-care (01) ==
LOC: CHF HDHVI 11:22
PROVIDERS: ATTEND Internal Medicine Cardiovascular Disease
DX: I25.758 Atherosclerosis of native coronary artery of transplanted heart with other forms of angina pectoris (principal); I11.0 Hypertensive heart disease with heart failure; I50.23 Acute on chronic systolic (congestive) heart failure; R09.89 Other specified symptoms and signs involving the circulatory and respiratory systems; R06.02 Shortness of breath; D64.9 Anemia, unspecified; R42 Dizziness and giddiness
CPT/HCPCS: G0166

== ENCOUNTER → 2019-01-31 | Outpatient (CLI) | payer MEDICARE, MEDICAID ==
[2019-01-31 12:26] VITALS: BP 112/84
[2019-01-31 12:27] VITALS: BP 125/85
--- NOTE | 2019-01-31 12:27 | NUR ---
Signature Attestation Statement: I KHADRA SHERIDAN performed this procedure EECP on this patient. Addendum: 01/31/19 at 1227 by KHADRA SHERIDNA HDHI2 Amended: Links added.
--- NOTE | 2019-01-31 12:28 | NUR ---
Signature Attestation Statement: I KHADRA SHERIDAN performed this procedure EECP on this patient. Addendum: 01/31/19 at 1228 by KHADRA SHERIDAN HDHI2 Amended: Links added.
--- NOTE | 2019-01-31 12:31 | NUR ---
Signature Attestation Statement: I KHADRA SHERIDAN performed this procedure EECP on this patient. Addendum: 01/31/19 at 1232 by KHADRA SHERIDAN HDHI2 Amended: Links added.
== END | disposition home or self-care (01) ==
LOC: CHF HDHVI 11:07
PROVIDERS: ATTEND Internal Medicine Cardiovascular Disease
DX: I25.758 Atherosclerosis of native coronary artery of transplanted heart with other forms of angina pectoris (principal); I11.0 Hypertensive heart disease with heart failure; I50.43 Acute on chronic combined systolic (congestive) and diastolic (congestive) heart failure; I73.9 Peripheral vascular disease, unspecified; R09.89 Other specified symptoms and signs involving the circulatory and respiratory systems; R42 Dizziness and giddiness
CPT/HCPCS: G0166

== ENCOUNTER → 2019-02-02 | Outpatient (CLI) | payer MEDICARE, MEDICAID ==
[2019-02-02 11:06] VITALS: BP 164/108
--- NOTE | 2019-02-02 11:06 | NUR ---
Signature Attestation Statement: I KHADRA SHERIDAN performed this procedure EECP on this patient. Addendum: 02/02/19 at 1107 by KHADRA SHERIDAN HDHI2 Amended: Links added.
[2019-02-02 11:07] VITALS: BP 177/111
--- NOTE | 2019-02-02 11:08 | NUR ---
Signature Attestation Statement: I KHADRA SHERIDAN performed this procedure EECP on this patient. Addendum: 02/02/19 at 1108 by KHADRA SHERIDAN HDHI2 Amended: Links added.
--- NOTE | 2019-02-02 11:08 | NUR ---
Signature Attestation Statement: I KHADRA SHERIDAN performed this procedure EECP on this patient. Addendum: 02/02/19 at 1109 by KHADRA SHERIDAN HDHI2 Amended: Links added.
--- NOTE | 2019-02-02 11:13 | NUR ---
Signature Attestation Statement: I KHADRA SHERIDAN performed this procedure EECP on this patient. Addendum: 02/02/19 at 1113 by KHADRA SHERIDAN HDHI2 Amended: Links added.
== END | disposition home or self-care (01) ==
LOC: CHF HDHVI 09:19
PROVIDERS: ATTEND Internal Medicine Cardiovascular Disease
DX: I25.758 Atherosclerosis of native coronary artery of transplanted heart with other forms of angina pectoris (principal); I11.0 Hypertensive heart disease with heart failure; R09.89 Other specified symptoms and signs involving the circulatory and respiratory systems; D64.9 Anemia, unspecified; R42 Dizziness and giddiness; F17.200 Nicotine dependence, unspecified, uncomplicated; F41.8 Other specified anxiety disorders; F32.9 Major depressive disorder, single episode, unspecified; Z90.710 Acquired absence of both cervix and uterus; Z87.01 Personal history of pneumonia (recurrent)
CPT/HCPCS: G0166

== ENCOUNTER → 2019-02-03 | Outpatient (CLI) | payer MEDICARE, MEDICAID ==
[2019-02-03 12:46] VITALS: BP 192/111
--- NOTE | 2019-02-03 12:46 | NUR ---
Signature Attestation Statement: I KHADRA SHERIDAN performed this procedure EECP on this patient. Addendum: 02/03/19 at 1247 by KHADRA SHERIDAN HDHI2 Amended: Links added.
[2019-02-03 12:47] VITALS: BP 174/109
--- NOTE | 2019-02-03 12:48 | NUR ---
Signature Attestation Statement: I KHADRA SHERIDAN performed this procedure EECP on this patient. Addendum: 02/03/19 at 1249 by KHADRA SHERIDAN HDHI2 Amended: Links added.
--- NOTE | 2019-02-03 12:48 | NUR ---
Signature Attestation Statement: I KHADRA SHERIDAN performed this procedure EECP on this patient. Addendum: 02/03/19 at 1248 by KHADRA SHERIDAN HDHI2 Amended: Links added.
--- NOTE | 2019-02-03 12:52 | NUR ---
Signature Attestation Statement: I KHADRA SHERIDAN performed this procedure EECP on this patient. Addendum: 02/03/19 at 1253 by KHADRA SHERIDAN HDHI2 Amended: Links added.
== END | disposition home or self-care (01) ==
LOC: CHF HDHVI 11:00
PROVIDERS: ATTEND Internal Medicine Cardiovascular Disease
DX: I25.758 Atherosclerosis of native coronary artery of transplanted heart with other forms of angina pectoris (principal); I11.0 Hypertensive heart disease with heart failure; I50.23 Acute on chronic systolic (congestive) heart failure; I73.9 Peripheral vascular disease, unspecified; R09.89 Other specified symptoms and signs involving the circulatory and respiratory systems; I50.33 Acute on chronic diastolic (congestive) heart failure; R06.02 Shortness of breath; D64.9 Anemia, unspecified; R07.89 Other chest pain; R42 Dizziness and giddiness; F17.200 Nicotine dependence, unspecified, uncomplicated; F32.9 Major depressive disorder, single episode, unspecified; F41.9 Anxiety disorder, unspecified; J18.9 Pneumonia, unspecified organism; Z90.710 Acquired absence of both cervix and uterus; Z88.0 Allergy status to penicillin; Z91.048 Other nonmedicinal substance allergy status
CPT/HCPCS: G0166

== ENCOUNTER 2019-03-18 17:25 | Emergency (ER) | payer MEDICARE, MEDICAID ==
[~2019-03-18] VITALS: Ht 175.3 cm; Wt 99.8 kg
[2019-03-18 18:32] LABS: Basophils # (auto) 0.1 uL; Basophils % (auto) 1.7 % (0.0-2.0); Eosinophils # (auto) 0.2 uL; Eosinophils % (auto) 2.7 % (0.0-7.0); Hematocrit 41.4 % (36.0-46.0); Lymphocytes # (auto) 2.9 uL; Lymphocytes % (auto) 40.8 % (10.0-50.0); Mean Corpuscular Hemoglobin 32.2 pg (28.0-32.0); Mean Corpuscular Hgb Conc. 33.7 g/dL (32.0-36.0); Mean Corpuscular Volume 95.4 fL (80.0-100.0); Monocytes # (auto) 0.6 uL; Monocytes % (auto) 8.1 % (0.0-12.0); Neutrophils # (auto) 3.4 uL; Neutrophils % (auto) 46.7 % (37.0-80.0); Nucleated Red Blood Cells % 0.1 %; Platelet Count (auto) 244 10^3/uL (140-450); Red Blood Cells 4.34 10^6/uL (4.0-5.20); Red Cell Distribution Width 13.4 % (11.8-14.3); White Blood Cell 7.2 10^3/uL (4.4-10.8)
[2019-03-18 18:42] LABS: Urine Bacteria NONE SEEN /hpf (None Seen); Urine Blood Negative /uL (Negative); Urine Mucus FEW (None Seen); Urine Specific Gravity 1.021 (1.001-1.035); Urine WBC 1 /hpf (0 - 5)
[2019-03-18 18:51] LABS: INR 0.97 (0.9-1.15); Partial Thromboplastin Time 28.3 sec (23.64-32.05)
[2019-03-18 18:53] LABS: Alanine Aminotransferase 30 U/L (13-56); Albumin 3.6 g/dL (3.4-5.0); Anion Gap 5 (5-15); Blood Urea Nitrogen 14 mg/dL (7-18); Calcium 8.8 mg/dL (8.5-10.1); Carbon Dioxide 26 mmol/L (21-32); Chloride 110 mmol/L (98-107); Glucose 89 mg/dL (74-106); Potassium 3.4 mmol/L (3.5-5.1); Sodium 141 mmol/L (136-145)
[2019-03-18 18:58] LABS: Alkaline Phosphatase 104 U/L (45-117); Aspartate Aminotransferase 14 U/L (15-37); BUN/Creatinine Ratio 16.7; Bilirubin, Total 0.2 mg/dL (0.2-1.0); GFR African American 91 mL/min; GFR Non-African American 75 mL/min; Total Protein 7.8 g/dL (6.4-8.2)
[2019-03-18] MEDS ORDERED: cloNIDine HCL 0.1 MG TAB PO ONE (19:15)
[2019-03-18] MEDS ORDERED: MORPHINE SULFATE 4 MG/ML SYR/VIAL IV ONE (20:00)
[2019-03-18] MEDS ORDERED: ONDANSETRON HCL 4 MG/2 ML VIAL IV ONE (20:00)
[2019-03-18 23:00] VITALS: BP 159/96
== END 2019-03-18 23:09 | disposition home or self-care (01) ==
LOC: ER 17:25 → EDBD 17:25 → ER 23:09
DX: R07.89 Other chest pain (principal); I16.0 Hypertensive urgency; I10 Essential (primary) hypertension; M54.2 Cervicalgia; R51 Headache; I25.2 Old myocardial infarction; Z98.61 Coronary angioplasty status; Z88.0 Allergy status to penicillin; Z79.899 Other long term (current) drug therapy
CPT/HCPCS: 36415; 71045; 80053; 81001; 81025; 84484; 85025; 85379; 85610; 85730; 93005; 96374; 96375; 99284; J2270; J2405

== ENCOUNTER 2019-07-19 16:32 | Emergency (ER) | payer MEDICARE, MEDICAID ==
[~2019-07-19] VITALS: Ht 167.6 cm; Wt 91.6 kg
[~2019-07-19 16:32] MED LIST changes: -NIFE90TA30 PO; +NIFE90TA49 PO
[2019-07-19 16:52] VITALS: BP 133/100
[2019-07-19 17:48] LABS: Eosinophils # (auto) 0.2 10 ^3/uL (0-0.8)
[2019-07-19 17:52] LABS: Basophils # (auto) 0.1 10 ^3/uL (0-0.2); Basophils % (auto) 1.3 % (0.0-2.0); Eosinophils % (auto) 2.6 % (0.0-7.0); Hematocrit 42.1 % (36.0-46.0); Hemoglobin 14.3 g/dL (12.2-16.2); Lymphocytes # (auto) 2.2 10 ^3/uL (0.4-5.4); Lymphocytes % (auto) 37.7 % (10.0-50.0); Mean Corpuscular Hemoglobin 31.7 pg (28.0-32.0); Mean Corpuscular Volume 93.2 fL (80.0-100.0); Monocytes # (auto) 0.4 10 ^3/uL (0-1.3); Monocytes % (auto) 6.8 % (0.0-12.0); Neutrophils % (auto) 51.6 % (37.0-80.0); Platelet Count (auto) 329 10^3/uL (140-450); Red Blood Cells 4.52 10^6/uL (4.0-5.20); Red Cell Distribution Width 13.1 % (11.8-14.3); White Blood Cell 5.8 10^3/uL (4.4-10.8)
[2019-07-19 18:05] LABS: Albumin 3.5 g/dL (3.4-5.0); Anion Gap 8 (5-15); Blood Urea Nitrogen 15 mg/dL (7-18); Calcium 8.7 mg/dL (8.5-10.1); Carbon Dioxide 26 mmol/L (21-32); Chloride 107 mmol/L (98-107); Glucose 84 mg/dL (74-106); Potassium 3.7 mmol/L (3.5-5.1); Sodium 141 mmol/L (136-145)
[2019-07-19 18:08] LABS: Urine Bacteria FEW /hpf (None Seen); Urine Blood Negative /uL (Negative); Urine Mucus FEW (None Seen); Urine WBC <1 /hpf (0 - 5)
[2019-07-19 18:09] LABS: Alanine Aminotransferase 18 U/L (13-56); Alkaline Phosphatase 90 U/L (45-117); Aspartate Aminotransferase 11 U/L (15-37); BUN/Creatinine Ratio 13.2; Bilirubin, Total 0.5 mg/dL (0.2-1.0); GFR African American 64 mL/min; GFR Non-African American 53 mL/min; Total Protein 7.8 g/dL (6.4-8.2)
== END 2019-07-19 20:52 | disposition left against medical advice (07) ==
LOC: ER 16:32
DX: R10.9 Unspecified abdominal pain (principal); R11.2 Nausea with vomiting, unspecified; Z53.21 Procedure and treatment not carried out due to patient leaving prior to being seen by health care provider
CPT/HCPCS: 36415; 80053; 81001; 84484; 85025; 93005

== ENCOUNTER → 2019-08-07 | Outpatient (CLI) | payer MEDICARE, MEDICAID ==
[~2019-08-07] MED LIST changes: -DEXL60CA3 PO; +DEXL60CA4 PO
[2019-08-07 16:16] LABS: Basophils # (auto) 0.1 10 ^3/uL (0-0.2); Basophils % (auto) 1.6 % (0.0-2.0); Eosinophils # (auto) 0.1 10 ^3/uL (0-0.8); Eosinophils % (auto) 2.4 % (0.0-7.0); Hematocrit 41.9 % (36.0-46.0); Hemoglobin 13.9 g/dL (12.2-16.2); Lymphocytes # (auto) 2.2 10 ^3/uL (0.4-5.4); Lymphocytes % (auto) 38.2 % (10.0-50.0); Mean Corpuscular Hemoglobin 31.3 pg (28.0-32.0); Mean Corpuscular Hgb Conc. 33.1 g/dL (32.0-36.0); Mean Corpuscular Volume 94.5 fL (80.0-100.0); Monocytes # (auto) 0.4 10 ^3/uL (0-1.3); Monocytes % (auto) 6.8 % (0.0-12.0); Nucleated Red Blood Cells % 0.1 %; Platelet Count (auto) 281 10^3/uL (140-450); Red Blood Cells 4.43 10^6/uL (4.0-5.20); Red Cell Distribution Width 12.9 % (11.8-14.3); White Blood Cell 5.9 10^3/uL (4.4-10.8)
[2019-08-07 16:20] LABS: Free T4 (Free Thyroxine) 1.07 ng/dL (0.89-1.76)
[2019-08-07 16:24] LABS: Albumin 3.5 g/dL (3.4-5.0); BUN/Creatinine Ratio 10.4; Bilirubin, Total 0.3 mg/dL (0.2-1.0); Calcium 9.2 mg/dL (8.5-10.1); Total Protein 7.6 g/dL (6.4-8.2)
== END | disposition home or self-care (01) ==
LOC: LAB 11:50
PROVIDERS: ATTEND Internal Medicine Cardiovascular Disease
DX: Z00.00 Encounter for general adult medical examination without abnormal findings (principal); E03.9 Hypothyroidism, unspecified; K90.9 Intestinal malabsorption, unspecified; D51.9 Vitamin B12 deficiency anemia, unspecified; Z79.899 Other long term (current) drug therapy
CPT/HCPCS: 36415; 80053; 80061; 82306; 82607; 83036; 84439; 84443; 85025

== ENCOUNTER → 2019-11-02 | Outpatient (CLI) | payer MEDICARE, MEDICAID ==
[~2019-11-02] VITALS: Ht 167.6 cm; Wt 94.3 kg
[~2019-11-02] MED LIST changes: +ADENOSINE 79 MG in GIVE UN-DILUTED 0 ML IV ONE; +ADENOSINE 90 MG/30 ML INJ IV ONE; +DEXL60CA3 PO; -DEXL60CA4 PO; +cloNIDine HCL 0.1 MG TAB ONE
== END | disposition home or self-care (01) ==
LOC: Rad HDHVI 13:26
PROVIDERS: ATTEND Internal Medicine Cardiovascular Disease
DX: I10 Essential (primary) hypertension (principal); I25.2 Old myocardial infarction; R07.9 Chest pain, unspecified; E78.00 Pure hypercholesterolemia, unspecified; F17.210 Nicotine dependence, cigarettes, uncomplicated; Z82.49 Family history of ischemic heart disease and other diseases of the circulatory system; Z88.0 Allergy status to penicillin; Z88.8 Allergy status to other drugs, medicaments and biological substances
CPT/HCPCS: 78452; 93005; 96374; 96375; A9500; J0153

== ENCOUNTER → 2020-02-19 | Outpatient (CLI) | payer MEDICARE, MEDICAID ==
[~2020-02-19] MED LIST changes: -ADENOSINE 79 MG in GIVE UN-DILUTED 0 ML IV ONE; -ADENOSINE 90 MG/30 ML INJ IV ONE; -DEXL60CA3 PO; +DEXL60CA4 PO; -cloNIDine HCL 0.1 MG TAB ONE
== END | disposition home or self-care (01) ==
LOC: Rad HDHVI 12:29
PROVIDERS: ATTEND Internal Medicine Cardiovascular Disease
DX: J32.9 Chronic sinusitis, unspecified (principal)
CPT/HCPCS: 70210

== ENCOUNTER → 2020-03-04 | Outpatient (CLI) | payer MEDICARE, MEDICAID ==
[~2020-03-04] MED LIST changes: +IOHEXOL 350 MG/ML 100ML IJ ONE; +SODIUM CHLORIDE 0.9% 250 ML IV ONE; +diphenhdrAMINE HCL 50 MG/1 ML VL IV ONE; +diphenhdrAMINE HCL 50 MG/1 ML VL ONE; +methylPREDNISolone SOD SUCC 125 MG/2 ML VL IM ONE; +methylPREDNISolone SOD SUCC 125 MG/2 ML VL IV ONE; +methylPREDNISolone SOD SUCC 125 MG/2 ML VL ONE
[2020-03-04 13:45] VITALS: BP 139/89
[2020-03-04 15:53] VITALS: BP 164/92
== END | disposition home or self-care (01) ==
LOC: Rad HDHVI 13:34
PROVIDERS: ATTEND Internal Medicine Cardiovascular Disease
DX: R94.4 Abnormal results of kidney function studies (principal); R04.2 Hemoptysis; R07.89 Other chest pain
CPT/HCPCS: 36415; 71260; 82565; 84520; 96361; 96374; 96375; G0463; J1200; J2930; J7050; Q9967

== ENCOUNTER → 2021-01-15 | Outpatient (CLI) | payer MEDICARE, MEDICAID ==
[~2021-01-15] MED LIST changes: -IBUP800T24 PO; +IBUP800T27 PO; -IOHEXOL 350 MG/ML 100ML IJ ONE; -SODIUM CHLORIDE 0.9% 250 ML IV ONE; -diphenhdrAMINE HCL 50 MG/1 ML VL IV ONE; -diphenhdrAMINE HCL 50 MG/1 ML VL ONE; -methylPREDNISolone SOD SUCC 125 MG/2 ML VL IM ONE; -methylPREDNISolone SOD SUCC 125 MG/2 ML VL IV ONE; -methylPREDNISolone SOD SUCC 125 MG/2 ML VL ONE
== END | disposition home or self-care (01) ==
LOC: Rad HDHVI 08:02
PROVIDERS: ATTEND Internal Medicine Cardiovascular Disease
DX: I10 Essential (primary) hypertension (principal); R06.02 Shortness of breath
CPT/HCPCS: 93306

== ENCOUNTER → 2021-01-16 | Outpatient (CLI) | payer MEDICARE, MEDICAID ==
[~2021-01-16] VITALS: Ht 167.6 cm; Wt 95.3 kg
[~2021-01-16] MED LIST changes: +ADENOSINE 80 MG in GIVE UN-DILUTED 0 ML IV ONE; +ADENOSINE 90 MG/30 ML INJ IV ONE
== END | disposition home or self-care (01) ==
LOC: Rad HDHVI 13:39
PROVIDERS: ATTEND Internal Medicine Cardiovascular Disease
DX: I11.0 Hypertensive heart disease with heart failure (principal); I50.33 Acute on chronic diastolic (congestive) heart failure; I10 Essential (primary) hypertension; E78.5 Hyperlipidemia, unspecified; F17.210 Nicotine dependence, cigarettes, uncomplicated; Z82.49 Family history of ischemic heart disease and other diseases of the circulatory system
CPT/HCPCS: 78452; 93005; 96374; 96375; A9500; J0153

== ENCOUNTER → 2021-01-23 | Outpatient (CLI) | payer MEDICARE, MEDICAID ==
[~2021-01-23] MED LIST changes: -ADENOSINE 80 MG in GIVE UN-DILUTED 0 ML IV ONE; -ADENOSINE 90 MG/30 ML INJ IV ONE
== END | disposition home or self-care (01) ==
LOC: Rad HDHVI 09:07
PROVIDERS: ATTEND Internal Medicine Cardiovascular Disease
DX: Z01.811 Encounter for preprocedural respiratory examination (principal); R06.02 Shortness of breath; E66.9 Obesity, unspecified
CPT/HCPCS: 71046

== ENCOUNTER → 2021-11-10 | Outpatient (CLI) | payer MEDICARE, MEDICAID | END | disposition home or self-care (01) | LOC: Rad HDHVI 11:42 | PROVIDERS: ATTEND Internal Medicine Cardiovascular Disease | DX: M17.12 Unilateral primary osteoarthritis, left knee (principal); M25.562 Pain in left knee | CPT/HCPCS: 73562 ==

== ENCOUNTER → 2021-12-23 | Outpatient (CLI) | payer MEDICARE, MEDICAID ==
[~2021-12-23] VITALS: Ht 170.2 cm; Wt 92.5 kg
[~2021-12-23] MED LIST changes: +ADENOSINE 78 MG in GIVE UN-DILUTED 0 ML IV ONE; +ADENOSINE 90 MG/30 ML INJ IV ONE
== END | disposition home or self-care (01) ==
LOC: Rad HDHVI 09:22
PROVIDERS: ATTEND Internal Medicine Cardiovascular Disease
DX: R07.89 Other chest pain (principal); I11.0 Hypertensive heart disease with heart failure; I50.43 Acute on chronic combined systolic (congestive) and diastolic (congestive) heart failure; R42 Dizziness and giddiness; R06.02 Shortness of breath; E78.5 Hyperlipidemia, unspecified; F17.210 Nicotine dependence, cigarettes, uncomplicated; Z82.49 Family history of ischemic heart disease and other diseases of the circulatory system; Z79.899 Other long term (current) drug therapy
CPT/HCPCS: 78452; 93005; 96374; 96375; A9500; J0153

== ENCOUNTER → 2021-12-25 | Outpatient (CLI) | payer MEDICARE, MEDICAID ==
[~2021-12-25] MED LIST changes: -ADENOSINE 78 MG in GIVE UN-DILUTED 0 ML IV ONE; -ADENOSINE 90 MG/30 ML INJ IV ONE
== END | disposition home or self-care (01) ==
LOC: Rad HDHVI 08:08
PROVIDERS: ATTEND Internal Medicine Cardiovascular Disease
DX: I08.0 Rheumatic disorders of both mitral and aortic valves (principal); I10 Essential (primary) hypertension; E78.5 Hyperlipidemia, unspecified
CPT/HCPCS: 93306

== ENCOUNTER → 2021-12-26 | Outpatient (CLI) | payer MEDICARE, MEDICAID ==
[2021-12-26 11:31] LABS: Basophils # (auto) 0.1 10 ^3/uL (0-0.2); Basophils % (auto) 1.2 % (0.0-2.0); Eosinophils # (auto) 0.1 10 ^3/uL (0-0.8); Eosinophils % (auto) 1.9 % (0.0-7.0); Hematocrit 41.1 % (36.0-46.0); Hemoglobin 13.5 g/dL (12.2-16.2); Lymphocytes # (auto) 1.7 10 ^3/uL (0.4-5.4); Lymphocytes % (auto) 33.7 % (10.0-50.0); Mean Corpuscular Hemoglobin 30.6 pg (28.0-32.0); Mean Corpuscular Hgb Conc. 32.7 g/dL (32.0-36.0); Mean Corpuscular Volume 93.6 fL (80.0-100.0); Monocytes # (auto) 0.4 10 ^3/uL (0-1.3); Monocytes % (auto) 7.4 % (0.0-12.0); Neutrophils # (auto) 2.9 10 ^3/uL (1.6-8.6); Neutrophils % (auto) 55.8 % (37.0-80.0); Nucleated Red Blood Cells % 0.1 %; Red Blood Cells 4.39 10^6/uL (4.0-5.20); Red Cell Distribution Width 13.4 % (11.8-14.3); White Blood Cell 5.2 10^3/uL (4.4-10.8)
[2021-12-26 11:53] LABS: Urine Blood Negative /uL (Negative); Urine Specific Gravity 1.008 (1.001-1.035)
[2021-12-26 11:57] LABS: Albumin 3.5 g/dL (3.4-5.0); BUN/Creatinine Ratio 8.9; Bilirubin, Total 0.2 mg/dL (0.2-1.0); Calcium 8.8 mg/dL (8.5-10.1); Total Protein 7.4 g/dL (6.4-8.2)
[2021-12-26 12:00] LABS: Free T4 (Free Thyroxine) 1.1 ng/dL (0.89-1.76)
== END | disposition home or self-care (01) ==
LOC: LAB 08:13
PROVIDERS: ATTEND Internal Medicine Cardiovascular Disease
DX: R00.2 Palpitations (principal); I11.0 Hypertensive heart disease with heart failure; I50.33 Acute on chronic diastolic (congestive) heart failure; E55.9 Vitamin D deficiency, unspecified; D51.3 Other dietary vitamin B12 deficiency anemia; D64.9 Anemia, unspecified; E11.9 Type 2 diabetes mellitus without complications; R53.1 Weakness; R30.0 Dysuria
CPT/HCPCS: 36415; 80053; 80061; 81003; 82306; 82607; 83036; 84439; 84443; 85025

== ENCOUNTER 2022-12-29 12:32 | Emergency (ER) | payer MEDICARE, MEDICAID ==
[~2022-12-29] VITALS: Ht 170.2 cm; Wt 84.4 kg
[~2022-12-29 12:32] MED LIST changes: +IBUP-1456 PO; -IBUP800T27 PO; -NIFE90TA49 PO; +NIFE90TA75 PO
[2022-12-29 12:35] VITALS: BP 160/105; RESP 18; O2SAT 98
[2022-12-29 12:37] VITALS: PULSE 114
[2022-12-29 12:56] LABS: Basophils # (auto) 0 10 ^3/uL (0-0.2); Basophils % (auto) 0.4 % (0.0-2.0); Eosinophils # (auto) 0 10 ^3/uL (0-0.8); Eosinophils % (auto) 0.5 % (0.0-7.0); Hematocrit 43.8 % (36.0-46.0); Hemoglobin 14.9 g/dL (12.2-16.2); Lymphocytes # (auto) 2.5 10 ^3/uL (0.4-5.4); Lymphocytes % (auto) 37.4 % (10.0-50.0); Mean Corpuscular Hemoglobin 32.6 pg (28.0-32.0); Monocytes # (auto) 0.4 10 ^3/uL (0-1.3); Monocytes % (auto) 6.2 % (0.0-12.0); Neutrophils # (auto) 3.7 10 ^3/uL (1.6-8.6); Neutrophils % (auto) 55.5 % (37.0-80.0); Nucleated Red Blood Cells % 0.2 %; Red Blood Cells 4.56 10^6/uL (4.0-5.20); Red Cell Distribution Width 13.2 % (11.8-14.3); White Blood Cell 6.7 10^3/uL (4.4-10.8)
[2022-12-29 13:08] LABS: Alanine Aminotransferase 14 U/L (7-40); Albumin 4.6 g/dL (3.2-4.8); Alkaline Phosphatase 79 U/L (46-116); Anion Gap 8 (5-15); Aspartate Aminotransferase 9 U/L (13-40); BUN/Creatinine Ratio 15.6 (10.0-20.0); Bilirubin, Total 0.5 mg/dL (0.2-1.0); Blood Urea Nitrogen 17 mg/dL (9-23); Calcium 9.9 mg/dL (8.5-10.1); Carbon Dioxide 27 mmol/L (20-30); Chloride 110 mmol/L (98-107); Glucose 112 mg/dL (74-106); Potassium 3.4 mmol/L (3.5-5.1); Sodium 145 mmol/L (136-145); Total Protein 7.5 g/dL (5.7-8.2)
== END 2022-12-29 13:47 | disposition left against medical advice (07) ==
LOC: ER 12:32
DX: R07.89 Other chest pain (principal); R06.02 Shortness of breath; Z53.21 Procedure and treatment not carried out due to patient leaving prior to being seen by health care provider
CPT/HCPCS: 36415; 80053; 84484; 85025; 93005

== ENCOUNTER → 2023-01-08 | Outpatient (CLI) | payer MEDICARE, MEDICAID | END | disposition home or self-care (01) | LOC: Rad HDHVI 12:49 | PROVIDERS: ATTEND Internal Medicine Cardiovascular Disease | DX: M77.32 Calcaneal spur, left foot (principal) | CPT/HCPCS: 73630 ==

== ENCOUNTER 2023-04-19 15:53 | Inpatient (IN) | payer MEDICARE, MEDICAID ==
[~2023-04-19] VITALS: Ht 170.2 cm; Wt 93.0 kg
[2023-04-19 18:49] LABS: Basophils # (auto) 0.1 10 ^3/uL (0-0.2); Basophils % (auto) 1.3 % (0.0-2.0); Eosinophils # (auto) 0.2 10 ^3/uL (0-0.8); Eosinophils % (auto) 2.5 % (0.0-7.0); Hematocrit 36.1 % (36.0-46.0); Hemoglobin 12.2 g/dL (12.2-16.2); Lymphocytes # (auto) 2.7 10 ^3/uL (0.4-5.4); Lymphocytes % (auto) 44.3 % (10.0-50.0); Mean Corpuscular Hemoglobin 32.2 pg (28.0-32.0); Mean Corpuscular Hgb Conc. 33.7 g/dL (32.0-36.0); Mean Corpuscular Volume 95.6 fL (80.0-100.0); Monocytes # (auto) 0.6 10 ^3/uL (0-1.3); Monocytes % (auto) 9.8 % (0.0-12.0); Neutrophils # (auto) 2.6 10 ^3/uL (1.6-8.6); Neutrophils % (auto) 42.1 % (37.0-80.0); Nucleated Red Blood Cells % 0.1 %; Red Blood Cells 3.78 10^6/uL (4.0-5.20); Red Cell Distribution Width 13.5 % (11.8-14.3); White Blood Cell 6.1 10^3/uL (4.4-10.8)
[2023-04-19 18:50] LABS: Chloride 109 mmol/L (98-107); Potassium 3.8 mmol/L (3.5-5.1); Sodium 140 mmol/L (136-145)
[2023-04-19 18:51] LABS: Anion Gap 2 (5-15); Carbon Dioxide 29 mmol/L (20-30)
[2023-04-19 18:52] LABS: Calcium 9.1 mg/dL (8.7-10.4)
[2023-04-19 18:56] LABS: Glucose 90 mg/dL (74-106)
[2023-04-19 18:57] LABS: BUN/Creatinine Ratio 12.6 (10.0-20.0); Blood Urea Nitrogen 13 mg/dL (9-23)
[2023-04-19 19:08] LABS: INR 0.98 (0.9-1.15); Partial Thromboplastin Time 35.2 SEC (24.5-34.5); Prothrombin Time 10.3 sec (9.3-11.8)
[2023-04-19] MEDS ORDERED: cefTRIAXone 1GM/50ML D5W 50 ML IV ONE (21:45)
[2023-04-19] MEDS ORDERED: SODIUM CHLORIDE 0.9% 1,000 ML IV ONE (22:45)
[2023-04-19] MEDS ORDERED: ONDANSETRON HCL 4 MG/2 ML VIAL IV PRN (22:45)
[2023-04-19] MEDS ORDERED: HEPARIN DRIP/D5W 100UNITS/ML 250 ML IV SCH (22:45)
[2023-04-19] MEDS ORDERED: DOCUSATE SOD 100 MG CAP PO PRN (22:45)
[2023-04-19] MEDS ORDERED: HYDROcodone-ACET 5/325MG TAB PO PRN (22:45)
[2023-04-19] MEDS ORDERED: ACETAMINOPHEN 325 MG TAB PO PRN (22:45)
[2023-04-19] MEDS ORDERED: HEPARIN SODIUM (PORCINE) 5000 UNITS/ML 1ML VIAL IV ONE (22:45)
[2023-04-20] VITALS (8 sets, daily range): BP systolic 118–209; BP diastolic 58–108; PULSE 78–94; RESP 16–22; TEMP 97.9–98.8; O2SAT 95–99
[2023-04-20] MEDS ORDERED: hydrALAZINE HCL 25 MG TAB PO SCH
[2023-04-20] MEDS: MORPHINE SULFATE INJ 2 MG/ml SYRG IV PRN ×3 (01:19→15:25)
[2023-04-20 05:52] LABS: Basophils # (auto) 0.1 10 ^3/uL (0-0.2); Basophils % (auto) 0.9 % (0.0-2.0); Eosinophils # (auto) 0.2 10 ^3/uL (0-0.8); Eosinophils % (auto) 2.8 % (0.0-7.0); Hematocrit 36.2 % (36.0-46.0); Hemoglobin 12.2 g/dL (12.2-16.2); Lymphocytes # (auto) 2.4 10 ^3/uL (0.4-5.4); Lymphocytes % (auto) 39.6 % (10.0-50.0); Mean Corpuscular Hemoglobin 32.2 pg (28.0-32.0); Mean Corpuscular Hgb Conc. 33.8 g/dL (32.0-36.0); Mean Corpuscular Volume 95.3 fL (80.0-100.0); Monocytes # (auto) 0.7 10 ^3/uL (0-1.3); Monocytes % (auto) 10.8 % (0.0-12.0); Neutrophils # (auto) 2.8 10 ^3/uL (1.6-8.6); Neutrophils % (auto) 45.9 % (37.0-80.0); Nucleated Red Blood Cells % 0.1 %; Red Cell Distribution Width 13.2 % (11.8-14.3); White Blood Cell 6.1 10^3/uL (4.4-10.8)
[2023-04-20] MEDS ORDERED: HEPARIN DRIP/D5W 100UNITS/ML 250 ML IV SCH ×2 (06:00→15:10)
[2023-04-20 06:11] LABS: Alanine Aminotransferase 14 U/L (7-40); Albumin 4.2 g/dL (3.2-4.8); Alkaline Phosphatase 76 U/L (46-116); Anion Gap 4 (5-15); Aspartate Aminotransferase 11 U/L (13-40); BUN/Creatinine Ratio 12.6 (10.0-20.0); Bilirubin, Total 0.3 mg/dL (0.2-1.0); Blood Urea Nitrogen 12 mg/dL (9-23); Calcium 9.3 mg/dL (8.7-10.4); Carbon Dioxide 28 mmol/L (20-30); Chloride 109 mmol/L (98-107); Glucose 93 mg/dL (74-106); Potassium 3.4 mmol/L (3.5-5.1); Sodium 141 mmol/L (136-145)
[2023-04-20] MEDS ORDERED: hydrALAZINE HCL 20 MG/ML VL IV PRN ×2 (06:15→06:45)
[2023-04-20] MEDS: NIFEdipine ER 30 MG TAB PO SCH (08:57)
[2023-04-20] MEDS: cloNIDine HCL 0.1 MG TAB PO SCH ×3 (08:57→21:06)
[2023-04-20] MEDS: ALPRAZolam 0.25 MG TAB PO SCH (08:58)
[2023-04-20] MEDS: ESCITALOPRAM OXALATE 20 MG PO SCH (09:09)
[2023-04-20] MEDS: METHYLNALTREXONE BROMIDE 150 MG PO SCH (09:10)
[2023-04-20] MEDS: PANTOPRAZOLE 40 MG TAB PO SCH (09:13)
[2023-04-20] MEDS ORDERED: PATIENTS OWN MEDICATION (Nifedipine (Nifedipine Er) 90 MG) PO SCH (10:00)
[2023-04-20] MEDS ORDERED: PATIENTS OWN MEDICATION (Temazepam 30 MG) PO SCH (10:00)
[2023-04-20] MEDS ORDERED: ceFAZolin 1GM/50ML 50 ML IV SCH (10:23)
[2023-04-20] MEDS: SPIRONOLACTONE 25 MG TAB PO SCH ×2 (13:16→21:07)
[2023-04-20 13:54] LABS: INR 1.04 (0.9-1.15); Prothrombin Time 10.9 sec (9.3-11.8)
[2023-04-20 13:58] LABS: Partial Thromboplastin Time 95.6 SEC (24.5-34.5)
[2023-04-20] MEDS: ceFAZolin 1GM/50ML 50 ML IV SCH ×2 (15:04→21:07)
[2023-04-20] MEDS: ATORVASTATIN 20 MG TAB PO SCH (21:07)
[2023-04-20 23:00] LABS: INR 1.02 (0.9-1.15); Partial Thromboplastin Time 33.9 SEC (24.5-34.5); Prothrombin Time 10.7 sec (9.3-11.8)
[2023-04-20] MEDS ORDERED: HEPARIN SODIUM (PORCINE) 5000 UNITS/ML 1ML VIAL IV ONE (23:45)
[2023-04-21] VITALS (8 sets, daily range): BP systolic 122–143; BP diastolic 69–84; PULSE 62–82; RESP 16–20; TEMP 97.8–98.4; O2SAT 95–98
[2023-04-21] MEDS: ceFAZolin 1GM/50ML 50 ML IV SCH ×3 (05:24→21:35)
[2023-04-21] MEDS: cloNIDine HCL 0.1 MG TAB PO SCH ×3 (05:24→21:35)
[2023-04-21 07:28] LABS: INR 1.07 (0.9-1.15); Prothrombin Time 11.2 sec (9.3-11.8)
[2023-04-21 07:38] LABS: Partial Thromboplastin Time > 139.0 SEC (24.5-34.5)
[2023-04-21] MEDS: PANTOPRAZOLE 40 MG TAB PO SCH (08:49)
[2023-04-21] MEDS: ALPRAZolam 0.25 MG TAB PO SCH (08:49)
[2023-04-21] MEDS: NIFEdipine ER 30 MG TAB PO SCH (08:50)
[2023-04-21] MEDS: SPIRONOLACTONE 25 MG TAB PO SCH ×2 (08:50→21:35)
[2023-04-21] MEDS: HEPARIN DRIP/D5W 100UNITS/ML 250 ML IV SCH ×2 (09:00)
[2023-04-21] MEDS: MORPHINE SULFATE INJ 2 MG/ml SYRG IV PRN ×2 (09:32→20:35)
[2023-04-21] MEDS: METHYLNALTREXONE BROMIDE 150 MG PO SCH (10:00)
[2023-04-21] MEDS: ESCITALOPRAM OXALATE 20 MG PO SCH (10:00)
[2023-04-21 18:41] LABS: INR 1.02 (0.9-1.15); Prothrombin Time 10.7 sec (9.3-11.8)
[2023-04-21 19:02] LABS: Partial Thromboplastin Time 81.8 SEC (24.5-34.5)
[2023-04-21] MEDS ORDERED: HEPARIN DRIP/D5W 100UNITS/ML 250 ML IV SCH (19:45)
[2023-04-21] MEDS: ATORVASTATIN 20 MG TAB PO SCH (21:35)
[2023-04-21] MEDS: TEMAZEPAM 15 MG CAP PO PRN (23:16)
[2023-04-22] VITALS (7 sets, daily range): BP systolic 113–132; BP diastolic 63–78; PULSE 64–88; RESP 16–20; TEMP 98–98.3; O2SAT 95–100
[2023-04-22 01:25] LABS: INR 1.04 (0.9-1.15); Prothrombin Time 10.9 sec (9.3-11.8)
[2023-04-22 01:33] LABS: Partial Thromboplastin Time 81.3 SEC (24.5-34.5)
[2023-04-22] MEDS: cloNIDine HCL 0.1 MG TAB PO SCH ×3 (05:40→21:02)
[2023-04-22] MEDS: ceFAZolin 1GM/50ML 50 ML IV SCH ×3 (05:45→21:03)
[2023-04-22 09:23] LABS: INR 1.04 (0.9-1.15); Prothrombin Time 10.9 sec (9.3-11.8)
[2023-04-22] MEDS: ESCITALOPRAM OXALATE 20 MG PO SCH (09:26)
[2023-04-22] MEDS: METHYLNALTREXONE BROMIDE 150 MG PO SCH (09:26)
[2023-04-22] MEDS: SPIRONOLACTONE 25 MG TAB PO SCH ×2 (09:31→21:03)
[2023-04-22] MEDS: APIXABAN 5 MG TAB PO SCH ×2 (09:31→21:01)
[2023-04-22] MEDS: PANTOPRAZOLE 40 MG TAB PO SCH (09:31)
[2023-04-22] MEDS: NIFEdipine ER 30 MG TAB PO SCH (09:32)
[2023-04-22] MEDS: ALPRAZolam 0.25 MG TAB PO SCH (09:32)
[2023-04-22] MEDS ORDERED: PATIENTS OWN MEDICATION (ELIQUIS 5 MG) PO SCH (10:00)
[2023-04-22] MEDS: MORPHINE SULFATE INJ 2 MG/ml SYRG IV PRN ×2 (13:59→21:35)
[2023-04-22] MEDS: TEMAZEPAM 15 MG CAP PO PRN (21:00)
[2023-04-22] MEDS: ATORVASTATIN 20 MG TAB PO SCH (21:01)
[2023-04-23 05:00] VITALS: BP 129/81; PULSE 76; RESP 16; TEMP 98.1; O2SAT 96
[2023-04-23] MEDS: cloNIDine HCL 0.1 MG TAB PO SCH ×2 (06:53→14:50)
[2023-04-23] MEDS: ceFAZolin 1GM/50ML 50 ML IV SCH ×2 (07:10→14:48)
[2023-04-23] MEDS: MORPHINE SULFATE INJ 2 MG/ml SYRG IV PRN (07:22)
[2023-04-23 08:00] VITALS: PULSE 70; RESP 18; O2SAT 97
[2023-04-23 09:00] VITALS: BP 150/81; PULSE 70; RESP 18; TEMP 98.1; O2SAT 97
[2023-04-23] MEDS: METHYLNALTREXONE BROMIDE 150 MG PO SCH (10:00)
[2023-04-23] MEDS: ESCITALOPRAM OXALATE 20 MG PO SCH (10:00)
[2023-04-23] MEDS: ALPRAZolam 0.25 MG TAB PO SCH (10:25)
[2023-04-23] MEDS: APIXABAN 5 MG TAB PO SCH (10:27)
[2023-04-23] MEDS: SPIRONOLACTONE 25 MG TAB PO SCH (10:27)
[2023-04-23] MEDS: PANTOPRAZOLE 40 MG TAB PO SCH (10:27)
[2023-04-23] MEDS: NIFEdipine ER 30 MG TAB PO SCH (10:27)
[2023-04-23 13:00] VITALS: BP 155/99; PULSE 94; RESP 20; TEMP 98; O2SAT 97
[2023-04-23 16:05] VITALS: BP 140/89; PULSE 84; RESP 18; TEMP 36.7; O2SAT 98
== END 2023-04-23 16:55 | disposition home or self-care (01) | DRG 294 ==
LOC: ER 15:53 → OVERFLOW 22:49 → WEST WING 04-20 08:19
PROVIDERS: ADMIT Nurse Practitioner Family; ATTEND Internal Medicine Cardiovascular Disease
DX: I80.11 Phlebitis and thrombophlebitis of right femoral vein (principal); I50.30 Unspecified diastolic (congestive) heart failure; E87.6 Hypokalemia; E66.01 Morbid (severe) obesity due to excess calories; E78.5 Hyperlipidemia, unspecified; I25.10 Atherosclerotic heart disease of native coronary artery without angina pectoris; K21.9 Gastro-esophageal reflux disease without esophagitis; F32.A Depression, unspecified; F41.9 Anxiety disorder, unspecified; I11.0 Hypertensive heart disease with heart failure; F17.200 Nicotine dependence, unspecified, uncomplicated; Z88.0 Allergy status to penicillin; Z91.041 Radiographic dye allergy status; Z86.73 Personal history of transient ischemic attack (TIA), and cerebral infarction without residual deficits; I25.2 Old myocardial infarction; Z71.6 Tobacco abuse counseling; Z68.32 Body mass index [BMI] 32.0-32.9, adult
CPT/HCPCS: 36415; 36600; 71045; 71250; 80048; 80053; 82805; 83880; 85025; 85379; 85610; 85730; 87040; 93971; G0378

== ENCOUNTER → 2023-05-20 | Outpatient (CLI) | payer MEDICARE, MEDICAID ==
[2023-05-20 11:43] LABS: Basophils # (auto) 0.1 10 ^3/uL (0-0.2); Eosinophils # (auto) 0.2 10 ^3/uL (0-0.8); Eosinophils % (auto) 3.1 % (0.0-7.0); Hematocrit 38.8 % (36.0-46.0); Lymphocytes # (auto) 2.3 10 ^3/uL (0.4-5.4); Lymphocytes % (auto) 40.9 % (10.0-50.0); Mean Corpuscular Hemoglobin 31.6 pg (28.0-32.0); Mean Corpuscular Hgb Conc. 33.4 g/dL (32.0-36.0); Mean Corpuscular Volume 94.8 fL (80.0-100.0); Monocytes # (auto) 0.4 10 ^3/uL (0-1.3); Monocytes % (auto) 7.1 % (0.0-12.0); Neutrophils # (auto) 2.7 10 ^3/uL (1.6-8.6); Neutrophils % (auto) 46.9 % (37.0-80.0); Nucleated Red Blood Cells % 0.1 %; Red Cell Distribution Width 12.9 % (11.8-14.3); White Blood Cell 5.7 10^3/uL (4.4-10.8)
[2023-05-20 12:28] LABS: Alanine Aminotransferase 18 U/L (7-40); Albumin 4.3 g/dL (3.2-4.8); Alkaline Phosphatase 87 U/L (46-116); Anion Gap 3 (5-15); Aspartate Aminotransferase 16 U/L (13-40); BUN/Creatinine Ratio 13.1 (10.0-20.0); Bilirubin, Total 0.3 mg/dL (0.2-1.0); Blood Urea Nitrogen 13 mg/dL (9-23); Calcium 9.7 mg/dL (8.5-10.1); Carbon Dioxide 28 mmol/L (20-30); Chloride 109 mmol/L (98-107); Glucose 91 mg/dL (74-106); Potassium 4.7 mmol/L (3.5-5.1); Sodium 140 mmol/L (136-145); Total Protein 6.9 g/dL (5.7-8.2)
== END | disposition home or self-care (01) ==
LOC: LAB 11:27
PROVIDERS: ATTEND Internal Medicine Cardiovascular Disease
DX: D64.9 Anemia, unspecified (principal); R94.4 Abnormal results of kidney function studies
CPT/HCPCS: 36415; 80053; 85025

== ENCOUNTER 2023-05-29 11:54 | Inpatient (IN) | payer MEDICARE, MEDICAID ==
[~2023-05-29] VITALS: Ht 170.2 cm; Wt 89.4 kg
[2023-05-29] MEDS: NITROGLYCERIN 2% OINT 1GM PKG TD STA (13:15)
[2023-05-29] MEDS: ASPirin 81 mg TAB PO ONE (13:15)
[2023-05-29 14:02] LABS: Basophils # (auto) 0.1 10 ^3/uL (0-0.2); Basophils % (auto) 1.9 % (0.0-2.0); Eosinophils # (auto) 0.3 10 ^3/uL (0-0.8); Eosinophils % (auto) 6.2 % (0.0-7.0); Hematocrit 39.3 % (36.0-46.0); Lymphocytes # (auto) 2.1 10 ^3/uL (0.4-5.4); Lymphocytes % (auto) 47.4 % (10.0-50.0); Mean Corpuscular Hemoglobin 31.5 pg (28.0-32.0); Mean Corpuscular Hgb Conc. 33.1 g/dL (32.0-36.0); Mean Corpuscular Volume 95.2 fL (80.0-100.0); Monocytes # (auto) 0.3 10 ^3/uL (0-1.3); Monocytes % (auto) 7.1 % (0.0-12.0); Neutrophils # (auto) 1.7 10 ^3/uL (1.6-8.6); Neutrophils % (auto) 37.4 % (37.0-80.0); Nucleated Red Blood Cells % 0.1 %; Red Blood Cells 4.13 10^6/uL (4.0-5.20); Red Cell Distribution Width 12.7 % (11.8-14.3); White Blood Cell 4.4 10^3/uL (4.4-10.8)
[2023-05-29 14:17] LABS: INR 0.98 (0.9-1.15); Partial Thromboplastin Time 30.2 SEC (24.5-34.5); Prothrombin Time 10.3 sec (9.3-11.8)
[2023-05-29 14:25] LABS: Alanine Aminotransferase 19 U/L (7-40); Albumin 4.2 g/dL (3.2-4.8); Alkaline Phosphatase 82 U/L (46-116); Anion Gap 5 (5-15); Aspartate Aminotransferase 19 U/L (13-40); BUN/Creatinine Ratio 19.2 (10.0-20.0); Blood Urea Nitrogen 23 mg/dL (9-23); Carbon Dioxide 25 mmol/L (20-30); Chloride 111 mmol/L (98-107); Glucose 104 mg/dL (74-106); Magnesium 2.4 mg/dL (1.6-2.6); Potassium 4.9 mmol/L (3.5-5.1); Sodium 141 mmol/L (136-145)
[2023-05-29 14:26] LABS: Bilirubin, Total 0.2 mg/dL (0.2-1.0); Total Protein 6.8 g/dL (5.7-8.2)
[2023-05-29] MEDS ORDERED: MORPHINE SULFATE INJ 2 MG/ml SYRG IV PRN (15:30)
[2023-05-29] MEDS ORDERED: NITROGLYCERIN 0.4 MG SL TAB SL PRN (15:30)
[2023-05-29] MEDS ORDERED: ONDANSETRON HCL 4 MG/2 ML VIAL IV PRN (15:30)
[2023-05-29] MEDS ORDERED: DOCUSATE SOD 100 MG CAP PO PRN (15:30)
[2023-05-29] MEDS: hydrALAZINE HCL 25 MG TAB PO SCH (18:00)
[2023-05-29 18:04] VITALS: PULSE 80; RESP 18; O2SAT 97
[2023-05-29 19:29] VITALS: PULSE 80; RESP 18; O2SAT 98
[2023-05-29 20:00] VITALS: PULSE 69; RESP 18; O2SAT 97
[2023-05-29] MEDS: ATORVASTATIN 20 MG TAB PO SCH (21:33)
[2023-05-29] MEDS: ALPRAZolam 0.25 MG TAB PO SCH (21:33)
[2023-05-29] MEDS: CARISOPRODOL 350 MG TAB PO SCH (21:33)
[2023-05-29] MEDS: SPIRONOLACTONE 25 MG TAB PO SCH (21:34)
[2023-05-29] MEDS: PANTOPRAZOLE 40 MG TAB PO SCH (21:34)
[2023-05-29] MEDS: cloNIDine HCL 0.1 MG TAB PO SCH (21:35)
[2023-05-29] MEDS: METOPROLOL TARTRATE 50 MG TAB PO SCH (21:36)
[2023-05-29] MEDS: SODIUM CHLOR 0.9% PF (SALINE LOCK) 10ML VIAL/SYR IV SCH (21:36)
[2023-05-30 05:00] VITALS: BP 100/61; PULSE 73; RESP 16; TEMP 98.4; O2SAT 97
[2023-05-30] MEDS: ACETAMINOPHEN 325 MG TAB PO PRN (07:42)
[2023-05-30 08:00] VITALS: PULSE 66; RESP 18
[2023-05-30 09:00] VITALS: BP 136/76; PULSE 88; RESP 17; TEMP 98.7; O2SAT 98
[2023-05-30] MEDS: HYDROcodone-ACET 5/325MG TAB PO PRN (09:14)
[2023-05-30] MEDS: RELISTOR PO SCH (10:00)
[2023-05-30] MEDS: CITALOPRAM HYDROBR 20 MG TAB PO SCH (10:13)
[2023-05-30] MEDS: NIFEdipine ER 30 MG TAB PO SCH (10:14)
[2023-05-30] MEDS: ENOXAPARIN SOD 40 MG/0.4 ML SYRINGE SC SCH (10:15)
[2023-05-30] MEDS: HYDROmorphone HCL 2 MG/ML VL/or syr IV PRN (10:28)
[2023-05-30] MEDS: cefTRIAXone 1GM/50ML D5W 50 ML IV ONE (17:04)
[2023-05-30 20:00] VITALS: PULSE 75; RESP 18
[2023-05-30 22:00] VITALS: BP 90/56; PULSE 76; RESP 20; TEMP 98.4; O2SAT 98
[2023-05-31] VITALS (7 sets, daily range): BP systolic 90–119; BP diastolic 50–67; PULSE 62–75; RESP 16–18; TEMP 97.6–98.8; O2SAT 96–100
[2023-05-31] MEDS: cefTRIAXone 1GM/50ML D5W 50 ML IV SCH (09:16)
[2023-05-31 14:01] LABS: Urine Bacteria NONE SEEN /hpf (None Seen); Urine Blood Negative /uL (Negative); Urine Clarity Clear (Clear); Urine Hyaline Cast FEW /lpf (0 - 2); Urine Protein, UAD Negative (Negative); Urine Specific Gravity 1.011 (1.001-1.035); Urine Urobilinogen Normal (Negative); Urine WBC <1 /hpf (0 - 5); Urine pH 6.5 (5.0-8.0)
[2023-05-31 14:02] LABS: Urine Color STRAW (Yellow)
[2023-05-31] MEDS ORDERED: ONDA-155 PO (16:00)
[2023-05-31] MEDS ORDERED: APIX5TAB PO (16:00)
[2023-05-31] MEDS ORDERED: CHOL20007 PO (16:00)
[2023-05-31] MEDS ORDERED: DOXE10CA PO (16:00)
[2023-05-31] MEDS ORDERED: HYDR200T36 PO (16:00)
[2023-06-01] VITALS (7 sets, daily range): BP systolic 99–118; BP diastolic 60–73; PULSE 57–65; RESP 16–18; TEMP 97.3–98.2; O2SAT 94–100
== END 2023-06-01 15:47 | disposition home or self-care (01) | DRG 313 ==
LOC: EDBD 11:54 → ER 11:54 → TELE 15:32 → TELE-CENTR 18:55
PROVIDERS: ADMIT Internal Medicine; ATTEND Internal Medicine Cardiovascular Disease
DX: R07.89 Other chest pain (principal); R78.81 Bacteremia; I50.9 Heart failure, unspecified; I11.0 Hypertensive heart disease with heart failure; I25.10 Atherosclerotic heart disease of native coronary artery without angina pectoris; M79.10 Myalgia, unspecified site; R56.9 Unspecified convulsions; J45.909 Unspecified asthma, uncomplicated; R61 Generalized hyperhidrosis; E78.00 Pure hypercholesterolemia, unspecified; I25.2 Old myocardial infarction; Z86.73 Personal history of transient ischemic attack (TIA), and cerebral infarction without residual deficits; Z88.0 Allergy status to penicillin; Z91.041 Radiographic dye allergy status; Z79.899 Other long term (current) drug therapy; Z79.1 Long term (current) use of non-steroidal anti-inflammatories (NSAID)
CPT/HCPCS: 36415; 71045; 80053; 81001; 83735; 83880; 84484; 85025; 85379; 85610; 85730; 87040; 93005; 93306; G0378

== ENCOUNTER → 2023-06-04 | Outpatient (CLI) | payer MEDICARE, MEDICAID ==
[~2023-06-04] MED LIST changes: +APIX5TAB PO; +CHOL20007 PO; +DOXE10CA PO; +HYDR200T36 PO; +ONDA-155 PO
[2023-06-05 08:06] LABS: Immunoglobulin A 352 mg/dL (87-352)
== END | disposition home or self-care (01) ==
LOC: LAB 13:57
PROVIDERS: ATTEND Internal Medicine Cardiovascular Disease
DX: K90.0 Celiac disease (principal); M32.9 Systemic lupus erythematosus, unspecified
CPT/HCPCS: 36415; 82565; 82784; 83516; 84520; 86255

== ENCOUNTER → 2023-06-07 | Outpatient (CLI) | payer MEDICARE, MEDICAID ==
[~2023-06-07] MED LIST changes: +IOHEXOL 350 MG/ML 100ML IJ ONE
[2023-06-07 09:28] VITALS: BP 124/88; PULSE 75; RESP 20; O2SAT 98
[2023-06-07] MEDS: diphenhdrAMINE HCL 50 MG/1 ML VL IV ONE ×2 (09:28→10:00)
[2023-06-07] MEDS: MVI in SODIUM CHLORIDE 0.9% 500 ML IVB ONE (09:30)
[2023-06-07] MEDS: methylPREDNISolone SOD SUCC 125 MG/2 ML VL ONE (09:32)
[2023-06-07] MEDS: diphenhdrAMINE HCL 50 MG/1 ML VL ONE ×2 (09:45→10:13)
[2023-06-07] MEDS: MULTIPLE VIT 10 ML IV ONE (10:05)
[2023-06-07] MEDS: methylPREDNISolone SOD SUCC 40 MG/ML VL ONE (10:56)
[2023-06-07] MEDS: FAMOTIDINE 20 MG TAB ONE (10:56)
[2023-06-07] MEDS: FAMOTIDINE 20 MG TAB PO ONE (11:00)
[2023-06-07] MEDS: methylPREDNISolone SOD SUCC 40 MG/ML VL IV ONE (11:00)
[2023-06-07 12:32] VITALS: BP 137/78; PULSE 60; RESP 18; O2SAT 98
[2023-06-07] MEDS: methylPREDNISolone SOD SUCC 125 MG/2 ML VL IV SCH (14:09)
== END | disposition home or self-care (01) ==
LOC: Rad HDHVI 09:16
PROVIDERS: ATTEND Internal Medicine Cardiovascular Disease
DX: E86.0 Dehydration (principal); R61 Generalized hyperhidrosis; N28.1 Cyst of kidney, acquired; I11.0 Hypertensive heart disease with heart failure; I50.30 Unspecified diastolic (congestive) heart failure; I25.10 Atherosclerotic heart disease of native coronary artery without angina pectoris; I25.2 Old myocardial infarction; J45.909 Unspecified asthma, uncomplicated; K21.9 Gastro-esophageal reflux disease without esophagitis; E78.00 Pure hypercholesterolemia, unspecified; E78.5 Hyperlipidemia, unspecified; F41.9 Anxiety disorder, unspecified; F32.A Depression, unspecified; Z88.0 Allergy status to penicillin; Z79.1 Long term (current) use of non-steroidal anti-inflammatories (NSAID); Z79.899 Other long term (current) drug therapy; Z86.73 Personal history of transient ischemic attack (TIA), and cerebral infarction without residual deficits; Z87.891 Personal history of nicotine dependence; Z91.041 Radiographic dye allergy status
CPT/HCPCS: 71260; 96365; 96366; 96375; 96376; G0463; J1200; J2920; J2930; J7040; Q9967; 96360; 96361

== ENCOUNTER → 2023-09-01 | Outpatient (CLI) | payer MEDICARE, MEDICAID ==
[~2023-09-01] MED LIST changes: +CYANOCOBALAMIN (B-12) 1000 MCG/1 ML VIAL IM ONE; -HYDR-4296 PO; +HYDR25TA88 PO; -IOHEXOL 350 MG/ML 100ML IJ ONE
[2023-09-01 11:40] VITALS: BP 122/87; PULSE 67; RESP 18; O2SAT 98
[2023-09-01] MEDS: MULTIPLE VIT 10 ML IV ONE (11:51)
[2023-09-01] MEDS: MVI in SODIUM CHLORIDE 0.9% 500 ML IVB ONE (11:54)
[2023-09-01] MEDS: CYANOCOBALAMIN (B-12) 1000 MCG/1 ML VIAL ONE (14:08)
[2023-09-01 14:18] VITALS: BP 155/89; PULSE 59; RESP 18; O2SAT 98
== END | disposition home or self-care (01) ==
LOC: CHF HDHVI 11:38
PROVIDERS: ATTEND Internal Medicine Cardiovascular Disease
DX: E86.0 Dehydration (principal); R53.83 Other fatigue; R00.2 Palpitations
CPT/HCPCS: 96365; 96366; 96372; G0463; J3411; J3420; J3475; J7040; 96360; 96361

== ENCOUNTER → 2023-09-29 | Outpatient (CLI) | payer MEDICARE, MEDICAID ==
[~2023-09-29] MED LIST changes: -CYANOCOBALAMIN (B-12) 1000 MCG/1 ML VIAL IM ONE; +IOHEXOL 350 MG/ML 100ML IJ ONE
[2023-09-29 13:35] VITALS: BP 140/81; PULSE 65; RESP 16; O2SAT 99
[2023-09-29] MEDS: diphenhdrAMINE HCL 50 MG/1 ML VL IV ONE (13:35)
[2023-09-29] MEDS: methylPREDNISolone SOD SUCC 125 MG/2 ML VL IV ONE (13:35)
[2023-09-29] MEDS: diphenhdrAMINE HCL 50 MG/1 ML VL ONE (13:53)
[2023-09-29] MEDS: methylPREDNISolone SOD SUCC 125 MG/2 ML VL ONE (13:53)
[2023-09-29 14:25] VITALS: BP 163/84; PULSE 67; RESP 16; O2SAT 99
== END | disposition home or self-care (01) ==
LOC: Rad HDHVI 13:00
PROVIDERS: ATTEND Internal Medicine Cardiovascular Disease
DX: K81.0 Acute cholecystitis (principal); R10.9 Unspecified abdominal pain
CPT/HCPCS: 74177; 96374; 96375; G0463; J1200; J2919; Q9967

== ENCOUNTER 2024-08-24 08:11 | Inpatient (IN) | payer MEDICARE, MEDICAID ==
[2024-08-24] VITALS (7 sets, daily range): BP systolic 157–173; BP diastolic 80–87; PULSE 72–89; RESP 11–18; TEMP 97.7–98.4; O2SAT 93–98
[~2024-08-24] VITALS: Ht 170.2 cm; Wt 90.3 kg
[~2024-08-24 08:11] MED LIST changes: -IOHEXOL 350 MG/ML 100ML IJ ONE
--- NOTE | 2024-08-24 08:44 | ED.PDOC ---
History of Present Illness HPI Comments 59-year-old female presents with a chief complaint of hematemesis, nausea, vomiting, and abdominal pain. Patient states that her pain is localized to her epigastric region. Patient mentions that she has been burping consistently and it has "been smelling awful and rancid". Patient denies any injuries, trauma, or operations to her abdomen. Patient reports that she started to vomit specks of blood. Patient is anxious appearing. Chief Complaint: Abdominal Pain Time Seen by MD: 08:29 Primary Care Provider: LAUREL Reviewed Notes: Medications, Allergies Allergies: Coded Allergies: Iodine (Verified Allergy, Unknown, 01/03/19) Penicillins (Verified Allergy, Unknown, 01/03/19) Home Meds Reported Medications Cholecalciferol (VITAMIN D3) 2,000 Unit Tab, 5000 UNIT PO DAILY 05/31/23 Apixaban Base (ELIQUIS) 5 Mg Tab, 5 MG PO BID 05/31/23 Doxepin Hcl (Doxepin Hcl) 10 Mg Cap, 1 CAP PO DAILY 05/31/23 Ondansetron HCl (Ondansetron) 4 Mg Tab, 8 MG PO DAILY 05/31/23 Hydroxychloroquine Sulfate (Hydroxychloroquine Sulfat) 200 Mg Tab, 1 TAB PO BID 05/31/23 Alprazolam (Xanax) 0.25 Mg Tb, 0.25 MG PO DAILY, TAB 01/03/19 Carisoprodol (Soma) 350 Mg Tab, 350 MG PO BID, TAB 01/03/19 Nebivolol Hcl (Bystolic) 10 Mg Tab, 10 MG PO DAILY, TAB 01/03/19 Ibuprofen (Ibuprofen) 800 Mg Tab, 800 MG PO Q6HPRN PRN for PAIN SCALE 1 THRU 6, MG 01/03/19 Hydrocodone-Acetaminophen (Coventry 10-325 mg) 1 Tab Tab, 1 TAB PO Q4HP PRN for PAIN SCALE 7 THRU 10, TAB 01/03/19 Clonidine Hydrochloride (Clonidine Hcl) 0.1 Mg Tab, 0.2 MG PO TID for 30 Days, MG 01/03/19 Rosuvastatin Calcium (Crestor) 20 Mg Tab, 20 MG PO DAILY, TAB 01/03/19 Dexlansoprazole (Dexilant) 60 Mg Cap, 60 MG PO DAILY, CAP 01/03/19 Methylnaltrexone [place] (Relistor) 150 Mg Tab, 150 MG PO DAILY, TAB 01/03/19 Escitalopram Oxalate (Lexapro) 10 Mg Tab, 20 MG PO DAILY, #90 TAB 3 Refills 01/08/17 Hydralazine Hcl (Hydralazine Hcl) 25 Mg Tab, 25 MG PO Q6HR for 30 Days, MG 01/08/17 Spironolactone (Spironolactone) 25 Mg Tab, 25 MG PO BID, TAB 01/08/17 Nifedipine (Nifedipine Er) 90 Mg Tab, 90 MG PO DAILY, TAB 01/08/17 Temazepam (Temazepam) 30 Mg Cap, 30 MG PO DAILY, CAP 01/08/17 Information Source: Patient Mode of Arrival: Ambulatory Severity: Moderate Timing: Days Duration: Intermittent Prehospital treatment: None Past Medical History PAST MEDICAL HISTORY: CAD, CHF, CVA, HTN, [place], Seizures Surgical History: PTCA 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 History Family History Family History: Reviewed,noncontributory to illness, No family hx of Cancer, No family hx of DM Social History Smoker: Non-Smoker Alcohol: Denies ETOH Use Drugs: Denies Drug Use Lives In: Home Constitutional: denies: chills, diaphoresis, fatigue, fever, malaise, sweats, weakness, others EENTM: denies: blurred vision, double vision, ear bleeding, ear discharge, ear drainage, ear pain, ear ringing, eye pain, eye redness, hearing loss, mouth pain, mouth swelling, nasal discharge, nose bleeding, nose congestion, nose pain, photophobia, tearing, throat pain, throat swelling, voice changes, others Respiratory: denies: cough, hemoptysis, orthopnea, SOB at rest, shortness of breath, SOB with excertion, stridor, wheezing, others Cardiovascular: denies: chest pain, dizzy spells, diaphoresis, Dyspnea on exertion, edema, irregular heart beat, left arm pain, lightheadedness, palpitations, PND, syncope, others Gastrointestinal: reports: abdominal pain, hematemesis, nausea, vomiting; denies: abdomen distended, blood streaked bowels, constipated, diarrhea, dysphagia, difficulty swallowing, melena, poor appetite, poor fluid intake, rectal bleeding, rectal pain, others Genitourinary: denies: abnormal vagina bleeding, burning, dyspareunia, dysuria, flank pain, frequency, hematuria, incontinence, pain, , vagina discharge, urgency, others Neurological: denies: dizziness, fainting, headache, left sided numbness, left sided weakness, numbness, paresthesia, pre-existing deficit, right sided numbness, right sided weakness, seizure, speech problems, tingling, tremors, weakness, others Musculoskeletal: denies: back pain, gout, joint pain, joint swelling, muscle pain, muscle stiffness, neck pain, others Integumetry: denies: bruises, change in color, change in hair/nails, dryness, laceration, lesions, lumps, rash, wounds, others Allergic/Immunocompromised: denies: Difficulty Healing, Frequent Infections, Hives, Itching, others Hematologic/Lymphatic: denies: anemia, blood clots, easy bleeding, easy bruising, swollen glands, others Endocrine: denies: excessive hunger, excessive sweating, excessive thirst, excessive urination, flushing, intolerance to cold, intolerance to heat, u nexplained weight gain, unexplained weight loss, others Psychiatric: denies: anxiety, bipolar disorder, depression, hopeless, panic disorder, schizophrenia, sleepless, suicidal, others All Other Systems: Reviewed and Negative Physical Exam General Appearance: No Apparent Distress, Normal HEENT: Normal ENT Inspection, Pharynx Normal, TMs Normal Neck: Full Range of Motion, Non-Tender, Normal, Normal Inspection Respiratory: Chest Non-Tender, Lungs Clear, No Accessory Muscle Use, No Respiratory Distress, Normal Breath Sounds Cardiovascular: No Edema, No JVD, No Murmur, No Gallop, Normal Peripheral P ulses, Regular Rate/Rhythm Breast Exam: Deferred Gastrointestinal: No Organomegaly, Non Tender, No Pulsatile Mass, Normal Bowel Sounds, Soft Genitalia: Deferred Pelvic: Deferred Rectal: Deferred Extremities: No calf tenderness, Normal capillary refill, Normal inspection, Normal range of motion, Non-tender, No pedal edema Musculoskeletal : Apperance: Normal Neurologic: Alert, sanitation officer II-XII nml as Tested, No Motor Deficits, Normal Affect, Normal Mood, No Sensory Deficits Cerebellar Function: Normal Reflexes: Normal Skin: Dry, Normal Color, Warm Lymphatic: No Adenopathy Was a procedure done? Was a procedure done?: No Differential Dx Considerations may include: Infectious etiology, malignancy, SBO X-Ray, Labs, Meds, VS Vital Signs Date Time Temp Pulse Resp B/P (MAP) Pulse Ox O2 Delivery O2 Flow Rate FiO2 08/24/24 09:54 75 11 98 Room Air* 0 21 08/24/24 09:52 75 11 168/82 08/24/24 09:11 83 18 97 Room Air* 0 21 08/24/24 09:10 98.0 82 18 155/97 (116) 97 98.0 08/24/24 09:10 82 19 155/97 08/24/24 08:33 98.2 96 16 155/111 (126) 99 98.2 08/24/24 08:31 96 Lab Test 08/24/24 08:40 Range/Units White Blood Count 5.1 4.4-10.8 10^3/uL Red Blood Count 4.20 4.0-5.20 10^6/uL Hemoglobin 13.8 12.2-16.2 g/dL Hematocrit 40.5 36.0-46.0 % Mean Corpuscular Volume 96.4 80.0-100.0 fL Mean Corpuscular Hemoglobin 32.8 H 28.0-32.0 pg Mean Corpuscular Hemoglobin Concent 34.1 32.0-36.0 g/dL Red Cell Distribution Width 12.7 11.8-14.3 % Platelet Count 233 140-450 10^3/uL Mean Platelet Volume 8.3 6.9-10.8 fL Neutrophils (%) (Auto) 55.6 37.0-80.0 % Lymphocytes (%) (Auto) 30.6 10.0-50.0 % Monocytes (%) (Auto) 10.2 0.0-12.0 % Eosinophils (%) (Auto) 1.9 0.0-7.0 % Basophils (%) (Auto) 1.7 0.0-2.0 % Neutrophils # (Auto) 2.8 1.6-8.6 10 ^3/uL Lymphocytes # (Auto) 1.6 0.4-5.4 10 ^3/uL Monocytes # (Auto) 0.5 0-1.3 10 ^3/uL Eosinophils # (Auto) 0.1 0-0.8 10 ^3/uL Basophils # (Auto) 0.1 0-0.2 10 ^3/uL Nucleated Red Blood Cells 0.0 % Sodium Level 141 136-145 mmol/L Potassium Level 4.0 3.5-5.1 mmol/L Chloride Level 108 H 98-107 mmol/L Carbon Dioxide Level 22 20-31 mmol/L Anion Gap 11 5-15 Blood Urea Nitrogen 18 9-23 mg/dL Creatinine 1.55 H 0.550-1.02 mg/dL Glomerular Filtration Rate Calc 38 >90 mL/min BUN/Creatinine Ratio 11.6 10.0-20.0 Serum Glucose 86 74-106 mg/dL Calcium Level 10.4 8.7-10.4 mg/dL Total Bilirubin 0.4 0.2-1.0 mg/dL Aspartate Amino Transferase (AST) 18 13-40 U/L Alanine Aminotransferase (ALT) 16 7-40 U/L Alkaline Phosphatase 86 46-116 U/L Total Protein 7.7 5.7-8.2 g/dL Albumin 4.9 H 3.2-4.8 g/dL Lipase Pending Current Medications Medications (Trade) Dose Ordered Sig/Arthur Route Start Time Stop Time Status Last Admin Sodium Chloride 1,000 ml @ 1,000 mls/hr Q1H ONCE IV 08/24/24 08:45 08/24/24 09:44 DC 08/24/24 09:07 Ondansetron HCl (Zofran) 4 mg ONCE ONCE IV 08/24/24 08:45 08/24/24 08:46 DC 08/24/24 09:07 Morphine Sulfate 4 mg ONCE ONCE IV 08/24/24 08:45 08/24/24 08:46 DC 08/24/24 09:10 Pantoprazole Sodium (Protonix) 40 mg ONCE ONCE IV 08/24/24 08:45 08/24/24 08:46 DC 08/24/24 09:08 Time of 1ST Reevaluation: 08:59 Reevaluation 1ST: Unchanged Patient Education/Counseling: Diagnosis, Treatment Family Education/Counseling: No Family Present Departure 1 Departure Time of Disposition: 10:21 (Patient presented with abdominal pain that was concerning for possible appendicits, gastritis, cholecystitis, colitis, gastroenteritis, sbo, or orther possible surgical emergency. Data: 1. I ordered and reviewed the result of at least 3 labs including a CBC, BMP, and Urinalysis. 2. I independently interpreted the following tests: CT Abdoment and Pelvis is concerning for colitis and possible malignancy .Risk:This patient has a high r isk of morbidity due to further diagnostic testing or treatment and may suffer from an acute abdominal process disorder. Workup reveals colitis and possible malignancy and patient should be admitted for further workup. and possible expert consultation. ) Impression: Primary Impression: Intractable abdominal pain Additional Impression: Colitis Disposition: ADMITTED INPATIENT Admit to: Med Surg Condition: Guarded Critical Care Note Critical Care Time?: Yes Critical care comment: Intractable abdominal pain Authorized and Performed by: Donovan Pond MD Total critical care time: Approximately 38 minutes Due to a high probability of clinically significant, life threatening deteriora tion, the patient required my highest level of preparedness to intervene emergently and I personally spent this critical care time directly and personally managing the patient. This critical care time included obtaining a history; examining the patient; pulse oximetry; ordering and review of studies; arranging urgent treatment with development of a management plan; evaluation of patient's response to treatment; frequent reassessment; and, discussions with other providers. This critical care time was performed to assess and manage the high probability of imminent, life-threatening deterioration that could result in multi-organ failure. It was exclusive of separately billable procedures and treating other patients and teaching time. Please see my other sections and the rest of the note for further information on patient assessment and treatment. Stability Stability form required: No Heart Score Heart Score: Heart Score Response (Comments) Value History N/A 0 EKG N/A 0 Age N/A 0 Risk Factors N/A 0 Troponin N/A 0 Total 0 I personally scribed for DONOVAN POND MD ([email or web address]) on 08/24/24 at 08:44. Electronically submitted by Kentrell Collins ([email or web address]). DONOVAN POND MD August 24, 2024 08:44
[2024-08-24 08:58] LABS: Basophils # (auto) 0.1 10 ^3/uL (0-0.2); Basophils % (auto) 1.7 % (0.0-2.0); Eosinophils # (auto) 0.1 10 ^3/uL (0-0.8); Eosinophils % (auto) 1.9 % (0.0-7.0); Hematocrit 40.5 % (36.0-46.0); Hemoglobin 13.8 g/dL (12.2-16.2); Lymphocytes # (auto) 1.6 10 ^3/uL (0.4-5.4); Lymphocytes % (auto) 30.6 % (10.0-50.0); Mean Corpuscular Hemoglobin 32.8 pg (28.0-32.0); Mean Corpuscular Hgb Conc. 34.1 g/dL (32.0-36.0); Mean Corpuscular Volume 96.4 fL (80.0-100.0); Monocytes # (auto) 0.5 10 ^3/uL (0-1.3); Monocytes % (auto) 10.2 % (0.0-12.0); Neutrophils # (auto) 2.8 10 ^3/uL (1.6-8.6); Neutrophils % (auto) 55.6 % (37.0-80.0); Platelet Count (auto) 233 10^3/uL (140-450); Red Cell Distribution Width 12.7 % (11.8-14.3); White Blood Cell 5.1 10^3/uL (4.4-10.8)
[2024-08-24] MEDS: ONDANSETRON HCL 4 MG/2 ML VIAL IV ONE (09:07)
[2024-08-24] MEDS: SODIUM CHLORIDE 0.9% 1,000 ML IV ONE (09:07)
[2024-08-24] MEDS: PANTOPRAZOLE 40 MG/10 ML VIAL INJ IV ONE (09:08)
[2024-08-24] MEDS: MORPHINE SULFATE 4 MG/ML SYR/VIAL IV ONE (09:10)
[2024-08-24 09:16] LABS: Alanine Aminotransferase 16 U/L (7-40); Alkaline Phosphatase 86 U/L (46-116); Anion Gap 11 (5-15); Aspartate Aminotransferase 18 U/L (13-40); BUN/Creatinine Ratio 11.6 (10.0-20.0); Blood Urea Nitrogen 18 mg/dL (9-23); Carbon Dioxide 22 mmol/L (20-31); Glucose 86 mg/dL (74-106); Sodium 141 mmol/L (136-145); Total Protein 7.7 g/dL (5.7-8.2)
[2024-08-24 09:17] LABS: Bilirubin, Total 0.4 mg/dL (0.2-1.0)
[2024-08-24 09:18] LABS: Albumin 4.9 g/dL (3.2-4.8); Calcium 10.4 mg/dL (8.7-10.4); Chloride 108 mmol/L (98-107)
--- NOTE | 2024-08-24 09:39 | DVH ---
CLINICAL INFORMATION: Worsening abdominal pain. History of renal cancer. TECHNIQUE: Axial CT images of the abdomen and pelvis were obtained without IV contrast. Coronal and s agittal reformatted images were obtained, reviewed, and stored. Evaluation of the parenchymal organs is limited without IV contrast. Evaluation of the bowel and mesentery is limited without oral contras t. All CT scans at this medical facility are performed using dose modulation techniques as appropriat e to a performed exam including the following: Automated exposure control was utilized; adjustment of the MA and/or KV according to patient size; and use of iterative reconstruction technique. CTDIvol = 12.98 mGy DLP = 647.37 mGy-cm COMPARISON: CT dated 05/01/2024. FINDINGS: Lung bases: Mild dependent atelectasis. Liver: Hepatic steatosis. Biliary: No calcified gallstones or biliary ductal dilatation. Spleen: Unremarkable. Pancreas: Grossly unremarkable in its noncontrast enhanced appearance. Adrenal glands: Unremarkable. No mass. Kidneys: Grossly stable appearing postsurgical changes of the upper pole of the left kidney. No hydro nephrosis. Grossly stable appearing cyst at the superior pole of the right kidney measuring up to 2.1 cm. Aorta/Vascular: Dense atherosclerotic calcification. No abdominal aortic aneurysm. Retroperitoneum: No mass or lymphadenopathy. Bowel/mesentery: Nonspecific nondilated fluid-filled small bowel loops. No small bowel obstruction. A ppendix is visualized and appears unremarkable. There is liquid stool in the colon. Focal narrowing and apparent wall thickening in the ascending colon (series 601 image 54 correlating with series 2, i mage 42), may be due to peristalsis. Neoplasm, including malignancy can not be excluded. Additional a reas of luminal narrowing are seen in the hepatic flexure of the colon and transverse colon, likely d ue to peristalsis. Pelvic organs: Uterus is surgically absent. Bladder: Unremarkable. No mass. Abdominal wall: No mass or hernia. Bones: No acute fracture or suspicious intraosseous lesion. IMPRESSION: 1. Postsurgical changes of left nephrectomy appear grossly stable on limited noncontrast enhanced exa m. Stable appearing right renal cyst. 2. Nonspecific nondilated fluid-filled small bowel loops and liquid stool in the colon. Findings may be seen with ileus or enterocolitis in the appropriate clinical setting. No small bowel obstruction. 3. Focal luminal narrowing with apparent wall thickening in the ascending colon, may be due to perist alsis, however neoplasm, including malignancy can not be excluded. Additional areas of luminal narrow ing of the colon are most likely due to peristalsis. Correlate with clinical findings. 4. Additional findings as detailed above.
--- NOTE | 2024-08-24 10:26 | ECG ---
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
[2024-08-24 10:52] LABS: Lipase 34 U/L (12-53)
[2024-08-24 10:55] LABS: Urine Bacteria None Seen /hpf (None Seen)
[2024-08-24] MEDS: metroNIDAZOLE 500MG/100ML 100 ML IV ONE (11:01)
[2024-08-24 11:13] LABS: Urine Blood Negative /uL (Negative); Urine Clarity Clear (Clear); Urine Color Yellow (Yellow); Urine Hyaline Cast FEW /lpf (0 - 2); Urine Mucus FEW (None Seen); Urine Protein, UAD 1+ (Negative); Urine Specific Gravity 1.024 (1.001-1.035); Urine Squamous Epithelial Cell MOD /hpf (<5); Urine Urobilinogen Normal (Negative); Urine WBC 2 /HPF (0-5); Urine pH 5.5 (5.0-9.0)
[2024-08-24] MEDS ORDERED: NITROGLYCERIN 0.4 MG SL TAB SL PRN (12:00)
[2024-08-24] MEDS ORDERED: HYDROcodone-ACET 5/325MG TAB PO PRN (12:00)
[2024-08-24] MEDS ORDERED: MORPHINE SULFATE INJ 2 MG/ml SYRG IV PRN (12:00)
[2024-08-24] MEDS ORDERED: POLYETHYLENE GLYCOL 17 GM PWDR PO SCH (12:00)
[2024-08-24] MEDS ORDERED: DULO1CAP6 PO (12:02)
--- NOTE | 2024-08-24 12:29 | DVHHP2 ---
History of Present Illness Reason for Visit: Abdominal pain History of Present Illness Cesilia Westborok is a 59-year-old female with past medical history of CAD, hypertension, hyperlipidemia, asthma, CHF, CVA with no deficits, NE, lupus, seizures, gastritis, hiatal hernia, right lower extremity DVT no longer on Eliquis, renal cancer with left nephrectomy on August 17, 2023, left adrenal tumor 7 years ago with left adrenalectomy, partial hysterectomy, and abdominoplasty who presents to the ED with abdominal pain, nausea, vomiting, and diarrhea x1.5 months. Patient endorses that she went to her primary and advised her of all her symptoms but did not give her any treatment or refer her anywhere. Patient also states that she has been unable to hold down foods as well as when she burps she states the odor is very bad. Patient states that she does not have stents in her heart but history from other chart shows that she had a PTCA. Patient also endorses diarrhea which is watery now with green and yellowish discharge. Patient states that her abdominal pain is 5/10 sharp and constant. Patient does endorse that she smokes 5 cigarettes per day, does not use drugs, and does not drink. Patient also states that she no longer takes Eliquis and was stopped last year by her saddle and side wire stitcher because she states that she was coughing up clots. Patient also states that she uses a cane to ambulate. Patient states that she has been having daily bowel movements but in the past she was only able to have bowel movements once per week if she took her bowel regimen twice per week. 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 seizure) GI: Gastritis Past Medical History Hiatal hernia Right lower extremity DVT no longer on Eliquis Left adrenal tumor Past Surgical History: Hysterectomy, Other (Left nephrectomy, left adrenal ectomy, and abdominoplasty) Family History: Cancer, Hypertension, Other (Mom with breast cancer and hypert ension, dad with prostate cancer, hypertension, stomach issues with abdominal surgery) Smoke: <1 pack per day ALCOHOL: none Drugs: None Lives: with Family Domestic Violence: Neg Review of Systems Gastrointestinal: Nausea, Vomiting, Abdominal Pain, Diarrhea, Other (Hematemesis) Allergies: Coded Allergies: Iodine (Verified Allergy, Unknown, 01/03/19) Penicillins (Verified Allergy, Unknown, 01/03/19) Exam Vital Signs Vital Signs Date Time Temp Pulse Resp B/P (MAP) Pulse Ox O2 Delivery O2 Flow Rate FiO2 08/24/24 10:00 75 13 168/82 (110) 99 08/24/24 09:54 Room Air* 0 21 08/24/24 09:10 98.0 98.0 General Appearance: Alert, Oriented X3, Cooperative, No acute distress HEENT: Atraumatic, PERRLA, EOMI, Mucous membr. moist/pink Respiratory: Clear to auscultation, Normal air movement Cardiovascular: Regular rate, Normal S1, Normal S2 Abdominal: Soft Extremities: No clubbing, No cyanosis, No edema, Normal pulses, No tende rness/swelling Skin: No significant lesion Neuro: Normal speech, Strength at 5/5 X4 ext, Normal tone, Sensation intact Psych/Mental Status: Mental status NL, Mood NL Labs/Xrays Labs Test 08/24/24 10:52 08/24/24 08:40 Range/Units Urine Color Yellow Yellow Urine Clarity Clear Clear Urine pH 5.5 5.0-9.0 Urine Specific [place] 1.024 1.001-1.035 Urine Protein 1+ H Negative Urine Ketones Negative Negative Urine Blood Negative Negative /uL Urine Nitrite Negative Negative Urine Bilirubin Negative Negative Urine Urobilinogen Normal Negative mg/dL Urine Leukocyte Esterase Negative Negative /uL Urine RBC 3 0 - 4 /hpf Urine Microscopic WBC 2 0-5 /HPF Urine Squamous Epithelial Cells Mod <5 /hpf Urine Bacteria None seen None Seen /hpf Urine Hyaline Casts Few 0 - 2 /lpf Urine Mucus Few None Seen Urine Glucose Normal Normal mg/dL White Blood Count 5.1 4.4-10.8 10^3/uL Red Blood Count 4.20 4.0-5.20 10^6/uL Hemoglobin 13.8 12.2-16.2 g/dL Hematocrit 40.5 36.0-46.0 % Mean Corpuscular Volume 96.4 80.0-100.0 fL Mean Corpuscular Hemoglobin 32.8 H 28.0-32.0 pg Mean Corpuscular Hemoglobin Concent 34.1 32.0-36.0 g/dL Red Cell Distribution Width 12.7 11.8-14.3 % Platelet Count 233 140-450 10^3/uL Mean Platelet Volume 8.3 6.9-10.8 fL Neutrophils (%) (Auto) 55.6 37.0-80.0 % Lymphocytes (%) (Auto) 30.6 10.0-50.0 % Monocytes (%) (Auto) 10.2 0.0-12.0 % Eosinophils (%) (Auto) 1.9 0.0-7.0 % Basophils (%) (Auto) 1.7 0.0-2.0 % Neutrophils # (Auto) 2.8 1.6-8.6 10 ^3/uL Lymphocytes # (Auto) 1.6 0.4-5.4 10 ^3/uL Monocytes # (Auto) 0.5 0-1.3 10 ^3/uL Eosinophils # (Auto) 0.1 0-0.8 10 ^3/uL Basophils # (Auto) 0.1 0-0.2 10 ^3/uL Nucleated Red Blood Cells 0.0 % Sodium Level 141 136-145 mmol/L Potassium Level 4.0 3.5-5.1 mmol/L Chloride Level 108 H 98-107 mmol/L Carbon Dioxide Level 22 20-31 mmol/L Anion Gap 11 5-15 Blood Urea Nitrogen 18 9-23 mg/dL Creatinine 1.55 H 0.550-1.02 mg/dL Glomerular Filtration Rate Calc 38 >90 mL/min BUN/Creatinine Ratio 11.6 10.0-20.0 Serum Glucose 86 74-106 mg/dL Calcium Level 10.4 8.7-10.4 mg/dL Total Bilirubin 0.4 0.2-1.0 mg/dL Aspartate Amino Transferase (AST) 18 13-40 U/L Alanine Aminotransferase (ALT) 16 7-40 U/L Alkaline Phosphatase 86 46-116 U/L Total Protein 7.7 5.7-8.2 g/dL Albumin 4.9 H 3.2-4.8 g/dL Lipase 34 12-53 U/L CLINICAL INFORMATION: Worsening abdominal pain. History of renal cancer. TECHNIQUE: Axial CT images of the abdomen and pelvis were obtained without IV contrast. Coronal and sagittal reformatted images were obtained, reviewed, and stored. Evaluation of the parenchymal organs is limited without IV contrast. Evaluation of the bowel and mesentery is limited without oral contrast. All CT scans at this medical facility are performed using dose modulation techniques as appropriate to a performed exam including the following: Automated exposure control was utilized; adjustment of the MA and/or KV according to patient size; and use of iterative reconstruction technique. CTDIvol = 12.98 mGy DLP = 647.37 mGy-cm COMPARISON: CT dated 05/01/2024. FINDINGS: Lung bases: Mild dependent atelectasis. Liver: Hepatic steatosis. Biliary: No calcified gallstones or biliary ductal dilatation. Spleen: Unremarkable. Pancreas: Grossly unremarkable in its noncontrast enhanced appearance. Adrenal glands: Unremarkable. No mass. Kidneys: Grossly stable appearing postsurgical changes of the upper pole of the left kidney. No hydronephrosis. Grossly stable appearing cyst at the superior pole of the right kidney measuring up to 2.1 cm. Aorta/Vascular: Dense atherosclerotic calcification. No abdominal aortic aneurysm. Retroperitoneum: No mass or lymphadenopathy. Bowel/mesentery: Nonspecific nondilated fluid-filled small bowel loops. No small bowel obstruction. Appendix is visualized and appears unremarkable. There is liquid stool in the colon. Focal narrowing and apparent wall thickening in the ascending colon (series 601 image 54 correlating with series 2, image 42), may be due to peristalsis. Neoplasm, including malignancy can not be excluded. Additional areas of luminal narrowing are seen in the hepatic flexure of the colon and transverse colon, likely due to peristalsis. Pelvic organs: Uterus is surgically absent. Bladder: Unremarkable. No mass. Abdominal wall: No mass or hernia. Bones: No acute fracture or suspicious intraosseous lesion. IMPRESSION: 1. Postsurgical changes of left nephrectomy appear grossly stable on limited noncontrast enhanced exam. Stable appearing right renal cyst. 2. Nonspecific nondilated fluid-filled small bowel loops and liquid stool in the colon. Findings may be seen with ileus or enterocolitis in the appropriate clinical setting. No small bowel obstruction. 3. Focal luminal narrowing with apparent wall thickening in the ascending colon, may be due to peristalsis, however neoplasm, including malignancy can not be excluded. Additional areas of luminal narrowing of the colon are most likely due to peristalsis. Correlate with clinical findings. 4. Additional findings as detailed above. Assessment/Plan Assessment/Plan Assessment Intractable abdominal pain with nausea vomiting and diarrhea Focal luminal narrowing with peritoneal wall thickening in the ascending colon possible peristalsis versus neoplasm RUPAL Hypertension Right renal cyst Ileus versus enterocolitis on imaging Tobacco use Obesity History of CAD History of hyperlipidemia History of asthma History of CHF History of CVA History of NE History of seizures History of lupus History of gastritis History of hiatal hernia History of right lower extremity DVT no longer on anti coags History of left renal cancer status post nephrectomy History of abdominoplasty History of left adrenal tumor status post adrenalectomy History of partial hysterectomy Plan Admit to med surge Antiemetics Pain management UA IV antibiotics-Flagyl + cefepime NS 1 L given ED EKG CT abdomen and pelvis noted Lipase Bilateral lower extremity DVT venous ordered Stool bacterial culture Ova and parasite culture IV fluids NPO for now CEA LDH Home medications reconciled DVT prophylaxis-Lovenox PUD prophylaxis-PPIs Dietary consult GI consult Counseled patient on cessation of tobacco use Counseled patient on lifestyle modifications, diet, and exercises Plan discussed with: Patient 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 Procedure Category Date Status Time Metronidazole PHA 08/24/24 Logged 500mg/100ml (Flagyl 14:00 Cefepime 1gm/ 50ml PHA 08/24/24 Logged (Maxipime 1gm/50ml) 14:00 Admit ADMIT 08/24/24 Transmitted 11:52 Allergies ARMANDO 08/24/24 In Process 11:52 Code Status CODE 08/24/24 Transmitted 11:52 Hydrocodone-Acet PHA 08/24/24 Logged 5/325mg Tab ([place] 12:00 Ondansetron Hcl PHA 08/24/24 Logged (Zofran) 12:00 Complete Blood Count LAB 08/25/24 Verified 04:00 Comprehensive LAB 08/25/24 Verified Metabolic Panel 04:00 Cardiac DIET 08/24/24 Transmitted Diet-2gna,Lofat,Lochol Lunch Acetaminophen Tablet PHA 08/24/24 Logged (Tylenol Tablet) 12:00 Morphine Sulfate PHA 08/24/24 Logged Injection 12:00 Nitroglycerin PHA 08/24/24 Logged Sublingual (Ntrostat 12:00 Morphine Sulfate PHA 08/24/24 Logged Injection 12:00 Stat Ekg For Chest ARMANDO 08/24/24 In Process Pain 11:52 Notify Of Changes ARMANDO 08/24/24 In Process From Base 11:52 Hand Endband Cutter For ARMANDO 08/24/24 In Process 24 Hours 11:52 Emergency Dysrhythmia ARMANDO 08/24/24 In Process Protocol 11:52 Rhythm Strips Once ARMANDO 08/24/24 In Process Every Shift 11:52 Oxygen By Nasal RT 08/24/24 Transmitted Cannula 11:52 Stool Bacterial TOBIN 08/24/24 Logged Culture 11:52 Polyethylene Glycol PHA 08/24/24 Logged 17g Powder (Miralax 12:00 Senna Pod Tablet PHA 08/24/24 Logged (Senokot Tablet) 22:00 Ova & Parasite Exam TOBIN 08/24/24 Logged 11:52 Famotidine Injection PHA 08/24/24 Logged (Pepcid Injection) 12:00 Alprazolam Tablet PHA 08/25/24 Logged (Xanax Tablet) 10:00 Carisoprodol Tablet PHA 08/24/24 Logged (Soma Tablet) 22:00 Clonidine Hcl Tablet PHA 08/24/24 Logged (Catapres Tablet) 14:00 Hydralazine Hcl PHA 08/24/24 Logged Tablet (Apresoline 12:00 Hydroxychloroquine PHA 08/24/24 Logged Tablet (Plaquenil Tab 22:00 Spironolactone PHA 08/24/24 Logged (Aldactone) 22:00 (Nf) Cholecalciferol PHA 08/25/24 Logged (Vitamin D3) 10:00 (Nf) Dexlansoprazole PHA 08/25/24 Logged (Dexilant) 10:00 (Nf) Doxepin Hcl PHA 08/25/24 Logged 10:00 (Nf) Escitalopram PHA 08/25/24 Logged Oxalate (Lexapro) 10:00 (Nf) Methylnaltrexone PHA 08/25/24 Logged Happy (Relistor) 10:00 (Nf) Nebivolol Hcl PHA 08/25/24 Logged (Bystolic) 10:00 (Nf) Nifedipine PHA 08/25/24 Logged (Nifedipine Er) 10:00 (Nf) Rosuvastatin PHA 08/25/24 Logged Calcium (Crestor) 10:00 (Nf) Temazepam PHA 08/25/24 Logged 10:00 Date of Service: August 24, 2024 Billing Provider: ALE RAE Common Visit Codes: [id number] INP/OBS CARE (HIGH) ALE RAE August 24, 2024 12:29
[2024-08-24] MEDS ORDERED: SODIUM CHLORIDE 0.9% 1,000 ML IV SCH (12:30)
[2024-08-24] MEDS: FAMOTIDINE (10MG/ML) 2ML VL IV SCH (12:30)
[2024-08-24] MEDS: CEFEPIME 2GM/50ML NS 50 ML IV ONE (12:53)
[2024-08-24] MEDS: SODIUM CHLORIDE 0.9% 1,000 ML IV SCH (13:01)
[2024-08-24] MEDS ORDERED: cloNIDine HCL 0.1 MG TAB PO SCH (14:00)
[2024-08-24] MEDS: MORPHINE SULFATE INJ 2 MG/ml SYRG IV PRN (14:17)
--- NOTE | 2024-08-24 15:30 | DVH ---
Bilateral lower extremity venous duplex Clinical History: r/o dvt Comparison: US RT LOWER DVT on DOS: 04/19/23 Findings: Duplex Doppler evaluation of the deep venous systems of both lower extremities from the common femora l veins to the popliteal veins including color Doppler and spectral/pulsed waveform analysis was perf ormed. RIGHT SIDE: The common femoral vein demonstrates appropriate compressibility and waveform variability. There is compressibility/patency of the great saphenous vein at the proximal thigh. The femoral vein demonstrates appropriate compressibility and waveform variability. The deep femoral vein demonstrates appropriate compressibility and waveform variability. The popliteal vein demonstrates appropriate compressibility and waveform variability. There is normal compressibility at the tibioperoneal trunk. LEFT SIDE: The common femoral vein demonstrates appropriate compressibility and waveform variability. There is compressibility/patency of the great saphenous vein at the proximal thigh. The femoral vein demonstrates appropriate compressibility and waveform variability. The deep femoral vein demonstrates appropriate compressibility and waveform variability. The popliteal vein demonstrates appropriate compressibility and waveform variability. There is normal compressibility at the tibioperoneal trunk. IMPRESSION: 1. No right or left femoropopliteal venous thrombosis. 2. If clinical concern/symptoms persist or worsen, short-interval follow-up study is suggested. 3. END IMPRESSION:
[2024-08-24] MEDS: NIFEdipine ER 30 MG TAB PO SCH (16:54)
[2024-08-24] MEDS: hydrALAZINE HCL 25 MG TAB PO SCH (16:55)
[2024-08-24] MEDS: metroNIDAZOLE 500MG/100ML 100 ML IV SCH (18:21)
[2024-08-24] MEDS: ONDANSETRON HCL 4 MG/2 ML VIAL IV PRN (18:22)
[2024-08-24] MEDS: SPIRONOLACTONE 25 MG TAB PO SCH (21:23)
[2024-08-24] MEDS: CEFEPIME 1GM/ 50ML 50 ML IV SCH (21:24)
[2024-08-24] MEDS: ATORVASTATIN 20 MG TAB PO SCH (21:24)
[2024-08-24] MEDS: CARISOPRODOL 350 MG TAB PO SCH (21:25)
[2024-08-24] MEDS ORDERED: SENNA 8.6 MG TAB PO SCH (22:00)
[2024-08-24] MEDS ORDERED: OSELTAMIVIR 30 MG CAP PO SCH (22:00)
[2024-08-24] MEDS ORDERED: hydrOXYchloroQUINE SULFATE 200 MG TAB PO SCH (22:00)
[2024-08-25] VITALS (8 sets, daily range): BP systolic 114–133; BP diastolic 72–90; PULSE 106–120; RESP 16–18; TEMP 98–99.3; O2SAT 97–100
[2024-08-25] MEDS: ACETAMINOPHEN 325 MG TAB PO PRN (02:43)
[2024-08-25 06:26] LABS: Alanine Aminotransferase 16 U/L (7-40); Albumin 4.4 g/dL (3.2-4.8); Alkaline Phosphatase 77 U/L (46-116); Anion Gap 12 (5-15); Aspartate Aminotransferase 15 U/L (13-40); BUN/Creatinine Ratio 10.1 (10.0-20.0); Blood Urea Nitrogen 12 mg/dL (9-23); Calcium 9.4 mg/dL (8.7-10.4); Chloride 107 mmol/L (98-107); Sodium 139 mmol/L (136-145); Total Protein 7.1 g/dL (5.7-8.2)
[2024-08-25 06:27] LABS: Bilirubin, Total 0.5 mg/dL (0.2-1.0)
[2024-08-25 06:28] LABS: Carbon Dioxide 20 mmol/L (20-31); Glucose 71 mg/dL (74-106); Potassium 3.4 mmol/L (3.5-5.1)
[2024-08-25 07:02] LABS: Basophils # (auto) 0 10 ^3/uL (0-0.2); Basophils % (auto) 0.7 % (0.0-2.0); Eosinophils # (auto) 0.1 10 ^3/uL (0-0.8); Eosinophils % (auto) 1.1 % (0.0-7.0); Hematocrit 37.7 % (36.0-46.0); Lymphocytes # (auto) 1.5 10 ^3/uL (0.4-5.4); Lymphocytes % (auto) 24.5 % (10.0-50.0); Mean Corpuscular Hemoglobin 32.9 pg (28.0-32.0); Mean Corpuscular Hgb Conc. 34.5 g/dL (32.0-36.0); Mean Corpuscular Volume 95.5 fL (80.0-100.0); Monocytes # (auto) 0.5 10 ^3/uL (0-1.3); Monocytes % (auto) 7.9 % (0.0-12.0); Neutrophils # (auto) 4.1 10 ^3/uL (1.6-8.6); Neutrophils % (auto) 65.8 % (37.0-80.0); Nucleated Red Blood Cells % 0.1 %; Platelet Count (auto) 218 10^3/uL (140-450); Red Blood Cells 3.95 10^6/uL (4.0-5.20); Red Cell Distribution Width 12.8 % (11.8-14.3); White Blood Cell 6.2 10^3/uL (4.4-10.8)
--- NOTE | 2024-08-25 09:10 | DVHPN2 ---
Progress Note - Dictate Date Seen: August 25, 2023 Medical Necessity Reason Pt with a Central, PICC or Fol: No Subjective PT WITH ABD PAIN NAUSEA VOMITING DIARRHEA ILEUS COLITIS PMH S/P LEFT NEPHRECTOMY SECONDARY TO CA S/P LEFT ADRENALECTOMY HTN ACCELERATED CVA COPD/ ASTHMA HX OF SLE HX OF DVT SECONDARY TO RENAL CELL CA LE VENOUS DOPPLER NEGATIVE vital signs Vital Sign Date Time Temp Pulse Resp B/P (MAP) Pulse Ox O2 Delivery O2 Flow Rate FiO2 08/25/24 08:57 103 18 131/84 08/25/24 05:00 98.6 97 98.6 08/24/24 20:00 Room Air* 0 21 Total Intake and Output 08/24/24 08/24/24 08/25/24 15:00 23:00 07:00 Intake Total 1000 ml 150 ml 710 ml Output Total 1 ml Balance 1000 ml 149 ml 710 ml medications Current Medications Medications Dose Ordered Sig/Arthur Route Start Time Stop Time Status Last Admin Dose Admin Metronidazole 100 ml @ 100 mls/hr Q8H IV 08/24/24 18:00 08/25/24 04:09 100 MLS/HR Cefepime HCl 50 ml @ 12.5 mls/hr Q12HR IV 08/24/24 22:00 08/24/24 21:24 12.5 MLS/HR Acetaminophen/ Hydrocodone Bitart 1 tab Q4HP PRN PO 08/24/24 12:00 Ondansetron HCl 4 mg Q4HP PRN IV 08/24/24 12:00 08/25/24 08:58 4 MG Acetaminophen 650 mg Q6HP PRN PO 08/24/24 12:00 08/25/24 02:43 650 MG Morphine Sulfate 2 mg Q4HPRN PRN IV 08/24/24 12:00 08/25/24 08:57 2 MG Nitroglycerin 0.4 mg Q5MINP PRN SL 08/24/24 12:00 Morphine Sulfate 2 mg Q30M PRN IV 08/24/24 12:00 Famotidine 20 mg DAILY IV 08/24/24 12:00 08/24/24 12:30 20 MG Alprazolam 0.25 mg DAILY PO 08/25/24 10:00 Carisoprodol 350 mg BID PO 08/24/24 22:00 08/24/24 21:25 350 MG Clonidine HCl 0.2 mg TID PO 08/24/24 14:00 Hold Hydralazine HCl 25 mg Q6HR PO 08/24/24 12:00 08/25/24 06:16 25 MG Hydroxychloroquine Sulfate 200 mg BID PO 08/24/24 22:00 Hold Spironolactone 25 mg BID PO 08/24/24 22:00 08/24/24 21:23 25 MG Cholecalciferol 5,000 unit DAILY PO 08/25/24 10:00 Pantoprazole Sodium 40 mg DAILY PO 08/25/24 10:00 Patient Own Medication 1 cap DAILY PO 08/25/24 10:00 Patient Own Medication 20 mg DAILY PO 08/25/24 10:00 Future Hold Patient Own Medication 150 mg DAILY PO 08/25/24 10:00 Future Hold Patient Own Medication 10 mg DAILY PO 08/25/24 10:00 Future Hold Nifedipine 90 mg DAILY PO 08/24/24 15:19 08/24/24 16:54 90 MG Atorvastatin Calcium 40 mg HS PO 08/24/24 22:00 08/24/24 21:24 40 MG Oseltamivir Phosphate 30 mg HS PO 08/24/24 22:00 08/29/24 21:59 Enoxaparin Sodium 40 mg DAILY SC 08/25/24 10:00 Sodium Chloride 1,000 ml @ 70 mls/hr [id number] IV 08/24/24 12:30 08/24/24 13:01 70 MLS/HR laboratory and microbiology Laboratory Tests 08/25/24 05:05 Test 08/25/24 05:05 Range/Units Serum Glucose 71 L 74-106 mg/dL Problem List ABD PAIN NAUSEA VOMITING DIARRHEA ILEUS COLITIS PMH S/P LEFT NEPHRECTOMY SECONDARY TO CA S/P LEFT ADRENALECTOMY HTN ACCELERATED HFpEF DIASTOLIC DYSFUNCTION CVA COPD/ ASTHMA HX OF SLE HX OF DVT SECONDARY TO RENAL CELL CA LE VENOUS DOPPLER NEGATIVE Assessment/Plan ABX IV FLUIDS CORRECT K+ Plan discussed with: Patient LAUREL POND MD August 25, 2024 09:10
[2024-08-25] MEDS: ENOXAPARIN SOD 40 MG/0.4 ML SYRINGE SC SCH (09:53)
[2024-08-25] MEDS: CHOLECALCIFEROL (VITD3) 1,000UNIT=25mCg TAB PO SCH (09:53)
[2024-08-25] MEDS: PANTOPRAZOLE 40 MG TAB PO SCH (09:53)
[2024-08-25] MEDS: ALPRAZolam 0.25 MG TAB PO SCH (09:55)
[2024-08-25] MEDS: DOXEPIN HCL 10 MG PO SCH (10:00)
[2024-08-25] MEDS ORDERED: ESCITALOPRAM OXALATE 20 MG PO SCH (10:00)
[2024-08-25] MEDS ORDERED: METHYLNALTREXONE BROMIDE 150 MG PO SCH (10:00)
--- NOTE | 2024-08-25 13:07 | DVHINCON2 ---
GI Consult Consult Note GI consult note Date of Consultation: 08/25/2024 Chief Complaint: Possible neoplasm Referring Physician: Dr. Harris H&P: 59-year-old female presented to ER with complains of abdominal pain, nausea and vomiting and diarrhea for the past 6-8 weeks Patient has nausea and vomiting, with small specks of blood, and one episode of a quarter size spitting up of blood. Patient says she is not able to hold food down and when she burps she states the orders very bad Patient usually has history of constipation, started with loose stool about eight weeks ago, two weeks ago patient noticed the stool color change to green, last three days patient complaining of watery stool. No melena or red blood in stool Patient denies recent antibiotic use. No recent travels. 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 seizure) GI: Gastritis Hiatal hernia Right lower extremity DVT no longer on Eliquis Left adrenal tumor Past Surgical History: Hysterectomy, Other (Left nephrectomy, left adrenalectomy, and abdominoplasty) Social History: Smoke: <1 pack per day ALCOHOL: none Drugs: None Lives: with Family Family History: Noncontributory Review of Systems: Constitutional: no fever, chill, weight loss HEENT: no eye pain, no hearing loss, no oral lesion, no scleral icterus Heart: no chest pain, no chest pressure Lung: no cough, no dyspnea with exertion Abdomen: see HPI Physical exam: General: NAD, AAOX3 Chest: lung vernon clear to auscultation Heart: RRR, no murmur Abdomen: non-distended, no tenderness to palpation, +BS Labs: Labs Test 08/25/24 05:05 08/24/24 10:52 08/24/24 08:40 Range/Units White Blood Count 6.2 4.4-10.8 10^3/uL Red Blood Count 3.95 L 4.0-5.20 10^6/uL Hemoglobin 13.0 12.2-16.2 g/dL Hematocrit 37.7 36.0-46.0 % Mean Corpuscular Volume 95.5 80.0-100.0 fL Mean Corpuscular Hemoglobin 32.9 H 28.0-32.0 pg Mean Corpuscular Hemoglobin Concent 34.5 32.0-36.0 g/dL Red Cell Distribution Width 12.8 11.8-14.3 % Platelet Count 218 140-450 10^3/uL Mean Platelet Volume 8.6 6.9-10.8 fL Neutrophils (%) (Auto) 65.8 37.0-80.0 % Lymphocytes (%) (Auto) 24.5 10.0-50.0 % Monocytes (%) (Auto) 7.9 0.0-12.0 % Eosinophils (%) (Auto) 1.1 0.0-7.0 % Basophils (%) (Auto) 0.7 0.0-2.0 % Neutrophils # (Auto) 4.1 1.6-8.6 10 ^3/uL Lymphocytes # (Auto) 1.5 0.4-5.4 10 ^3/uL Monocytes # (Auto) 0.5 0-1.3 10 ^3/uL Eosinophils # (Auto) 0.1 0-0.8 10 ^3/uL Basophils # (Auto) 0 0-0.2 10 ^3/uL Nucleated Red Blood Cells 0.1 % Sodium Level 139 136-145 mmol/L Potassium Level 3.4 L 3.5-5.1 mmol/L Chloride Level 107 98-107 mmol/L Carbon Dioxide Level 20 20-31 mmol/L Anion Gap 12 5-15 Blood Urea Nitrogen 12 9-23 mg/dL Creatinine 1.19 H 0.550-1.02 mg/dL Glomerular Filtration Rate Calc 52 >90 mL/min BUN/Creatinine Ratio 10.1 10.0-20.0 Serum Glucose 71 L 74-106 mg/dL Calcium Level 9.4 8.7-10.4 mg/dL Total Bilirubin 0.5 0.2-1.0 mg/dL Aspartate Amino Transferase (AST) 15 13-40 U/L Alanine Aminotransferase (ALT) 16 7-40 U/L Alkaline Phosphatase 77 46-116 U/L Total Protein 7.1 5.7-8.2 g/dL Albumin 4.4 3.2-4.8 g/dL Urine Color Yellow Yellow Urine Clarity Clear Clear Urine pH 5.5 5.0-9.0 Urine Specific [place] 1.024 1.001-1.035 Urine Protein 1+ H Negative Urine Ketones Negative Negative Urine Blood Negative Negative /uL Urine Nitrite Negative Negative Urine Bilirubin Negative Negative Urine Urobilinogen Normal Negative mg/dL Urine Leukocyte Esterase Negative Negative /uL Urine RBC 3 0 - 4 /hpf Urine Microscopic WBC 2 0-5 /HPF Urine Squamous Epithelial Cells Mod <5 /hpf Urine Bacteria None seen None Seen /hpf Urine Hyaline Casts Few 0 - 2 /lpf Urine Mucus Few None Seen Urine Glucose Normal Normal mg/dL Lactate Dehydrogenase 204 120-246 U/L Lipase 34 12-53 U/L Carcinoembryonic Antigen 1.78 <=5.0 ng/mL Imaging: CT abdomen pelvis IMPRESSION: 1. Postsurgical changes of left nephrectomy appear grossly stable on limited noncontrast enhanced exam. Stable appearing right renal cyst. 2. Nonspecific nondilated fluid-filled small bowel loops and liquid stool in the colon. Findings may be seen with ileus or enterocolitis in the appropriate clinical setting. No small bowel obstruction. 3. Focal luminal narrowing with apparent wall thickening in the ascending colon, may be due to peristalsis, however neoplasm, including malignancy can not be excluded. Additional areas of luminal narrowing of the colon are most likely due to peristalsis. Correlate with clinical findings. 4. Additional findings as detailed above. Assessment: Abdominal pain Nausea and vomiting Diarrhea Ileus versus enterocolitis on imaging Weight loss History of gastritis History of hiatal hernia Plan: Discussed with Dr. Forte Stool for WBC, bacterial culture and C diff Clear liquid diet advance as tolerated Obtain records of EGD and colonoscopy from [facility] Monitor labs in a.m. We will continue to follow this patient Discussed plan with patient and Dr. Marvin hospitalist Thank you for this consult Date of Service: August 25, 2024 Billing Provider: BRAYAN CHRISTY Common Visit Codes: CONSULT ONLY Consultation Codes: [id number] CONSULT <60MIN BRAYAN CHRISTY August 25, 2024 13:07
--- NOTE | 2024-08-25 14:41 | DVHPN2 ---
Subjective History of Present Illness Cesilia Westbrook is a 59-year-old female with past medical history of CAD, hypertension, hyperlipidemia, asthma, CHF, CVA with no deficits, RI, lupus, seizures, gastritis, hiatal hernia, right lower extremity DVT no longer on Eliquis, renal cancer with left nephrectomy on August 17, 2023, left adrenal tumor 7 years ago with left adrenalectomy, partial hysterectomy, and abdominoplasty who presents to the ED with abdominal pain, nausea, vomiting, and diarrhea x1.5 months. Patient endorses that she went to her primary and advised her of all her symptoms but did not give her any treatment or refer her anywhere. Patient also states that she has been unable to hold down foods as well as when she burps she states the odor is very bad. Patient states that she does not have stents in her heart but history from other chart shows that she had a PTCA. Patient also endorses diarrhea which is watery now with green and yellowish discharge. Patient states that her abdominal pain is 5/10 sharp and constant. Patient does endorse that she smokes 5 cigarettes per day, does not use drugs, and does not drink. Patient also states that she no longer takes Eliquis and was stopped last year by her restorative aide because she states that she was coughing up clots. Patient also states that she uses a cane to ambulate. Patient states that she has been having daily bowel movements but in the past she was only able to have bowel movements once per week if she took her bowel regimen twice per week. Patient seen and examined at bedside today. Reviewed: H&P Changes from previous H/P or p: No Changes General: Per HPI Objective Vitals Vital Signs Date Time Temp Pulse Resp B/P (MAP) Pulse Ox O2 Delivery O2 Flow Rate FiO2 08/25/24 14:14 123/84 08/25/24 13:00 99.3 112 16 100 99.3 08/25/24 08:00 Room Air* 0 21 Intake/Output Intake and Output 08/25/24 07:00 Intake Total 1860 ml Output Total 1 ml Balance 1859 ml Intake Oral 0 ml IV Total 1860 ml Output Urine Total 1 ml # Voids 10 Exam GEN: Healthy appearing, well-developed, NAD. HEENT: NC/AT; MMM. CV: RRR, no m/r/g. LUNGS: CTAB, no w/r/c. ABD: Soft, hypoactive bowel sounds, mild tenderness epigastrium periumbilical. no masses or organomegaly. EXT: skin Warm, well perfused. no rashes. No clubbing, cyanosis, or edema. NEURO: Ambulating with no limitations. No focal deficits. Medications Current Medications Medications Dose Ordered Sig/Arthur Route Start Time Stop Time Status Last Admin Dose Admin Metronidazole 100 ml @ 100 mls/hr Q8H IV 08/24/24 18:00 08/25/24 09:55 100 MLS/HR Cefepime HCl 50 ml @ 12.5 mls/hr Q12HR IV 08/24/24 22:00 08/25/24 09:54 12.5 MLS/HR Acetaminophen/ Hydrocodone Bitart 1 tab Q4HP PRN PO 08/24/24 12:00 Ondansetron HCl 4 mg Q4HP PRN IV 08/24/24 12:00 08/25/24 08:58 4 MG Acetaminophen 650 mg Q6HP PRN PO 08/24/24 12:00 08/25/24 02:43 650 MG Morphine Sulfate 2 mg Q4HPRN PRN IV 08/24/24 12:00 08/25/24 08:57 2 MG Nitroglycerin 0.4 mg Q5MINP PRN SL 08/24/24 12:00 Morphine Sulfate 2 mg Q30M PRN IV 08/24/24 12:00 Famotidine 20 mg DAILY IV 08/24/24 12:00 08/25/24 09:55 20 MG Alprazolam 0.25 mg DAILY PO 08/25/24 10:00 08/25/24 09:55 0.25 MG Carisoprodol 350 mg BID PO 08/24/24 22:00 08/25/24 09:53 350 MG Clonidine HCl 0.2 mg TID PO 08/24/24 14:00 Hold Hydralazine HCl 25 mg Q6HR PO 08/24/24 12:00 08/25/24 14:14 25 MG Hydroxychloroquine Sulfate 200 mg BID PO 08/24/24 22:00 Hold Spironolactone 25 mg BID PO 08/24/24 22:00 08/25/24 09:59 25 MG Cholecalciferol 5,000 unit DAILY PO 08/25/24 10:00 Pantoprazole Sodium 40 mg DAILY PO 08/25/24 10:00 08/25/24 09:53 40 MG Patient Own Medication 1 cap DAILY PO 08/25/24 10:00 Patient Own Medication 20 mg DAILY PO 08/25/24 10:00 Hold Patient Own Medication 150 mg DAILY PO 08/25/24 10:00 Hold Patient Own Medication 10 mg DAILY PO 08/25/24 10:00 Hold Nifedipine 90 mg DAILY PO 08/24/24 15:19 08/25/24 09:54 90 MG Atorvastatin Calcium 40 mg HS PO 08/24/24 22:00 08/24/24 21:24 40 MG Oseltamivir Phosphate 30 mg HS PO 08/24/24 22:00 08/29/24 21:59 Enoxaparin Sodium 40 mg DAILY SC 08/25/24 10:00 08/25/24 09:53 40 MG Sodium Chloride 1,000 ml @ 70 mls/hr [id number] IV 08/24/24 12:30 08/24/24 13:01 70 MLS/HR Laboratory Results Laboratory Tests 08/25/24 05:05 Chemistry Test 08/25/24 05:05 Albumin 4.4 g/dL (3.2-4.8) Calcium Level 9.4 mg/dL (8.7-10.4) Total Protein 7.1 g/dL (5.7-8.2) LFT Test 08/25/24 05:05 Alanine Aminotransferase (ALT) 16 U/L (7-40) Alkaline Phosphatase 77 U/L (46-116) Aspartate Amino Transferase (AST) 15 U/L (13-40) Total Bilirubin 0.5 mg/dL (0.2-1.0) Urinalysis Test 08/24/24 10:52 Urine Color Yellow (Yellow) Urine Clarity Clear (Clear) Urine pH 5.5 (5.0-9.0) Urine Specific [place] 1.024 (1.001-1.035) Urine Protein 1+ (Negative) H Urine Ketones Negative (Negative) Urine Blood Negative /uL (Negative) Urine Nitrite Negative (Negative) Urine Bilirubin Negative (Negative) Urine Urobilinogen Normal mg/dL (Negative) Urine Leukocyte Esterase Negative /uL (Negative) Urine RBC 3 /hpf (0 - 4) Urine Microscopic WBC 2 /HPF (0-5) Urine Squamous Epithelial Cells Mod /hpf (<5) Urine Bacteria None seen /hpf (None Seen) Urine Hyaline Casts Few /lpf (0 - 2) Urine Mucus Few (None Seen) Urine Glucose Normal mg/dL (Normal) Labs and/or images reviewed: Labs reviewed by me, Image(s) reviewed by me Assessment/Plan Assessment/Plan 08/25 patient is seen at bedside today. Abdominal pain is improving. Nausea improving. Diarrhea improving. Patient has chronic symptoms with acute flare. Gastroenteritis possible. CT concerning for luminal narrowing. GI and wants to try clear liquid diet. GI does not document upper GI endoscopy currently. Patient has history of following gastro group we will have to get the results from there procedures and if clinic visit. Continue PPI and Carafate b.i.d.. Continue IV antibiotics with deescalation to ceftriaxone/Flagyl. Gastroenteritis, infectious etiology likely Intractable abdominal pain due to above Intractable nausea and vomiting, due to above, acute exacerbation Intractable diarrhea due to above, acute exacerbation Chronic nausea and vomiting Chronic diarrhea Focal luminal narrowing with peritoneal wall thickening in the ascending colon possible peristalsis versus neoplasm RUPAL due to VMN Hypertension Right renal cyst Ileus versus enterocolitis on imaging Tobacco use Obesity History of CAD History of hyperlipidemia History of asthma History of CHF History of CVA History of RI History of seizures History of lupus History of gastritis History of hiatal hernia History of right lower extremity DVT no longer on anti coags History of left renal cancer status post nephrectomy History of abdominoplasty History of left adrenal tumor status post adrenalectomy History of partial hysterectomy Plan GI following, appreciate recommendations -IV antibiotics ceftriaxone/metronidazole Pepcid IV b.i.d., Carafate b.i.d., IV fluids P.r.n. analgesia Continue home anxiety medication Continuing other home medications (Xanax, Lipitor, clonidine, vitamin-D, Plaquenil, nifedipine, Protonix, Aldactone, Lexapro, doxepin, nebivolol,) Holding Soma, Tamiflu, Relistor (these home meds are being held, no indication inpatient currently, and possible worsening of current symptoms syndrome) Diet clear liquid diet DVT prophylaxis Lovenox GI prophylaxis-Pepcid Med surge Full code Plan discussed with: Patient Date of Service: August 25, 2024 Billing Provider: INEZ YOON MD Common Visit Codes: [id number] INP/OBS CARE(HIGH) INEZ YOON MD August 25, 2024 14:41
[2024-08-25] MEDS: POTASSIUM EFFERVESENT TAB 25 MEQ PO ONE (17:30)
[2024-08-25] MEDS: PANTOPRAZOLE 40 MG/10 ML VIAL INJ IV ONE (19:28)
[2024-08-25] MEDS: POTASSIUM CHL 20 Meq TABLET PO ONE (19:28)
[2024-08-25] MEDS ORDERED: hydrALAZINE HCL 20 MG/ML VL IV PRN (23:15)
[2024-08-25] MEDS ORDERED: MORPHINE SULFATE INJ 2 MG/ml SYRG IV PRN ×2 (23:30)
[2024-08-25] MEDS ORDERED: NITROGLYCERIN 0.4 MG SL TAB SL PRN ×2 (23:30)
[2024-08-26] VITALS (8 sets, daily range): BP systolic 123–171; BP diastolic 68–103; PULSE 85–126; RESP 16–20; TEMP 97.9–98.4; O2SAT 96–100
[2024-08-26] MEDS: CARVEDILOL 3.125 MG TAB PO SCH (01:42)
[2024-08-26] MEDS: SODIUM CHLOR 0.9% PF (SALINE LOCK) 10ML VIAL/SYR IV SCH (06:23)
[2024-08-26] MEDS ORDERED: CARVEDILOL 3.125 MG TAB PO SCH (10:00)
[2024-08-26 10:56] LABS: Alanine Aminotransferase 19 U/L (7-40); Albumin 4.6 g/dL (3.2-4.8); Alkaline Phosphatase 83 U/L (46-116); Anion Gap 17 (5-15); Aspartate Aminotransferase 15 U/L (13-40); BUN/Creatinine Ratio 9.4 (10.0-20.0); Blood Urea Nitrogen 12 mg/dL (9-23); Potassium 3.9 mmol/L (3.5-5.1); Sodium 142 mmol/L (136-145); Total Protein 7.5 g/dL (5.7-8.2)
[2024-08-26 10:57] LABS: Bilirubin, Total 0.7 mg/dL (0.2-1.0)
--- NOTE | 2024-08-26 11:02 | ECG ---
[facility] Test Date: 2024-08-25 Test Time: 22:25:17 Pat Name: DEZ CELESTE Department: Room: 0293T A Gender: F Turn Laster: LIANA PA : 1965 Requested By: SCAR HAMPTON Order Number: [id number] Reading MD: Max Dupree Measurements Intervals [place] Rate: 109 P: 53 [place]: 156 QRS: -21 QRSD: 68 T: 0 QT: 387 QTc: 522 Interpretive Statements Sinus tachycardia Left atrial enlargement Inferior infarct, old Prolonged QT interval Electronically Signed On 08-28-2024 10:42:54 PDT by Max Dupree Please click the below link to view image of tracing.
[2024-08-26 11:05] LABS: Calcium 10.5 mg/dL (8.7-10.4); Carbon Dioxide 18 mmol/L (20-31); Chloride 107 mmol/L (98-107); Glucose 66 mg/dL (74-106)
[2024-08-26 11:06] LABS: Basophils # (auto) 0 10 ^3/uL (0-0.2); Basophils % (auto) 0.9 % (0.0-2.0); Eosinophils # (auto) 0 10 ^3/uL (0-0.8); Eosinophils % (auto) 0.8 % (0.0-7.0); Hematocrit 42.8 % (36.0-46.0); Hemoglobin 14.4 g/dL (12.2-16.2); Lymphocytes # (auto) 1.1 10 ^3/uL (0.4-5.4); Lymphocytes % (auto) 19.5 % (10.0-50.0); Mean Corpuscular Hemoglobin 32.5 pg (28.0-32.0); Mean Corpuscular Hgb Conc. 33.6 g/dL (32.0-36.0); Mean Corpuscular Volume 96.8 fL (80.0-100.0); Monocytes # (auto) 0.6 10 ^3/uL (0-1.3); Monocytes % (auto) 11.3 % (0.0-12.0); Neutrophils # (auto) 3.9 10 ^3/uL (1.6-8.6); Neutrophils % (auto) 67.5 % (37.0-80.0); Nucleated Red Blood Cells % 0.1 %; Platelet Count (auto) 212 10^3/uL (140-450); Red Blood Cells 4.42 10^6/uL (4.0-5.20); White Blood Cell 5.7 10^3/uL (4.4-10.8)
--- NOTE | 2024-08-26 18:15 | DVHPN2 ---
Subjective weakness. had vomit this am Reviewed: Care Plan, H&P, Labs, Medications, Previous Orders, Radiology Changes from previous H/P or p: No Changes General: Per HPI Objective Vitals Vital Signs Date Time Temp Pulse Resp B/P (MAP) Pulse Ox O2 Delivery O2 Flow Rate FiO2 08/26/24 16:30 97.9 115 16 150/87 (108) 96 97.9 08/25/24 20:00 Room Air* 0 21 Intake/Output Intake and Output 08/26/24 07:00 Intake Total 1153 ml Balance 1153 ml Intake Oral 800 ml IV Total 353 ml # Voids 12 General Appearance: Alert, Oriented X3, Cooperative, No acute distress HEENT: Atraumatic Lungs: Clear to auscultation Cardiovascular: Other (tachycardia/PACs) Abdomen: Normal bowel sounds, Soft Medications Current Medications Medications Dose Ordered Sig/Arthur Route Start Time Stop Time Status Last Admin Dose Admin Metronidazole 100 ml @ 100 mls/hr Q8H IV 08/24/24 18:00 08/26/24 18:04 100 MLS/HR Cefepime HCl 50 ml @ 12.5 mls/hr Q12HR IV 08/24/24 22:00 08/26/24 10:00 12.5 MLS/HR Acetaminophen/ Hydrocodone Bitart 1 tab Q4HP PRN PO 08/24/24 12:00 Ondansetron HCl 4 mg Q4HP PRN IV 08/24/24 12:00 08/26/24 11:21 4 MG Acetaminophen 650 mg Q6HP PRN PO 08/24/24 12:00 08/25/24 02:43 650 MG Morphine Sulfate 2 mg Q4HPRN PRN IV 08/24/24 12:00 08/26/24 11:30 2 MG Nitroglycerin 0.4 mg Q5MINP PRN SL 08/24/24 12:00 Famotidine 20 mg DAILY IV 08/24/24 12:00 Hold 08/25/24 09:55 20 MG Alprazolam 0.25 mg DAILY PO 08/25/24 10:00 08/26/24 09:25 0.25 MG Clonidine HCl 0.2 mg TID PO 08/24/24 14:00 Hold Hydroxychloroquine Sulfate 200 mg BID PO 08/24/24 22:00 Hold Spironolactone 25 mg BID PO 08/24/24 22:00 08/26/24 09:28 25 MG Cholecalciferol 5,000 unit DAILY PO 08/25/24 10:00 08/26/24 09:26 5,000 UNIT Pantoprazole Sodium 40 mg DAILY PO 08/25/24 10:00 08/26/24 09:34 40 MG Patient Own Medication 1 cap DAILY PO 08/25/24 10:00 Patient Own Medication 20 mg DAILY PO 08/25/24 10:00 Hold Patient Own Medication 10 mg DAILY PO 08/25/24 10:00 Hold Nifedipine 90 mg DAILY PO 08/24/24 15:19 08/26/24 09:28 90 MG Atorvastatin Calcium 40 mg HS PO 08/24/24 22:00 08/25/24 21:05 40 MG Enoxaparin Sodium 40 mg DAILY SC 08/25/24 10:00 08/26/24 09:33 40 MG Sodium Chloride 1,000 ml @ 70 mls/hr [id number] IV 08/24/24 12:30 08/25/24 17:21 70 MLS/HR Hydralazine HCl 10 mg Q6HP PRN IV 08/25/24 23:15 Nitroglycerin 0.4 mg Q5MINP PRN SL 08/25/24 23:30 Morphine Sulfate 2 mg Q30M PRN IV 08/25/24 23:30 Sodium Chloride 10 ml Q8HR IV 08/26/24 06:00 08/26/24 14:00 10 ML Carvedilol 3.125 mg Q12HR PO 08/26/24 00:15 08/26/24 09:29 3.125 MG Laboratory Results Laboratory Tests 08/26/24 10:21 Chemistry Test 08/26/24 10:21 Albumin 4.6 g/dL (3.2-4.8) Calcium Level 10.5 mg/dL (8.7-10.4) H Total Protein 7.5 g/dL (5.7-8.2) LFT Test 08/26/24 10:21 Alanine Aminotransferase (ALT) 19 U/L (7-40) Alkaline Phosphatase 83 U/L (46-116) Aspartate Amino Transferase (AST) 15 U/L (13-40) Total Bilirubin 0.7 mg/dL (0.2-1.0) Urinalysis Test 08/24/24 10:52 Urine Color Yellow (Yellow) Urine Clarity Clear (Clear) Urine pH 5.5 (5.0-9.0) Urine Specific [place] 1.024 (1.001-1.035) Urine Protein 1+ (Negative) H Urine Ketones Negative (Negative) Urine Blood Negative /uL (Negative) Urine Nitrite Negative (Negative) Urine Bilirubin Negative (Negative) Urine Urobilinogen Normal mg/dL (Negative) Urine Leukocyte Esterase Negative /uL (Negative) Urine RBC 3 /hpf (0 - 4) Urine Microscopic WBC 2 /HPF (0-5) Urine Squamous Epithelial Cells Mod /hpf (<5) Urine Bacteria None seen /hpf (None Seen) Urine Hyaline Casts Few /lpf (0 - 2) Urine Mucus Few (None Seen) Urine Glucose Normal mg/dL (Normal) Assessment/Plan Assessment/Plan Abdominal pain Nausea and vomit Questionable ileus/colitis Hepatic steatosis History of left renal cancer status post left nephrectomy Lupus Seizures History of DVT right upper extremity Hiatal hernia Coronary artery disease Hypertension Dyslipidemia Asthma History of CVA CHF and history of NV Tachycardia of unclear etiology to rule out PE Plan: Continue current plan of care. Resume lupus medications from home. We will check TSH. We will check the D-dimer. We will obtain upper and lower extremity ultrasound rule out triggers DVT. Further plan per orders. Plan discussed with: Patient, Other (Nursing) Date of Service: August 26, 2024 Billing Provider: JO ANN REED MD Common Visit Codes: [id number] INP/OBS CARE(HIGH) JO ANN REED MD August 26, 2024 18:15
[2024-08-26] MEDS ORDERED: HYDR-4491 PO (20:02)
[2024-08-26] MEDS: hydrOXYchloroQUINE SULFATE 200 MG TAB PO SCH (23:23)
--- NOTE | 2024-08-27 01:52 | DVH ---
CLINICAL HISTORY: Bilateral upper extremities DVT TECHNIQUE: Color and duplex doppler imaging of the bilateral upper extremity veins and subclavian vei n was performed. Vessel compression if possible was also performed. WID: COMPARISON: US BILAT LOWER DVT on DOS: 08/24/24 FINDINGS: There is superficial occlusive thrombus in the left upper extremity cephalic vein, hypo echoic though mildly heterogeneous The bilateral internal jugular, axillary, basilic, right cephalic, brachial, ulnar, and radial veins are patent and demonstrate normal compressibility and flow. The subclavian veins bilaterally are patent. IMPRESSION: 1. NO SONOGRAPHIC EVIDENCE FOR DEEP VENOUS THROMBOSIS IN THE BILATERAL UPPER EXTREMITY VEINS. 2. Occlusive acute/ subacute superficial vein thrombus in the left upper extremity cephalic vein.
[2024-08-27 05:00] VITALS: BP 121/79; PULSE 95; RESP 18; TEMP 98.5; O2SAT 97
[2024-08-27 08:00] VITALS: PULSE 98
[2024-08-27 08:55] VITALS: BP 125/85; PULSE 105; RESP 18; TEMP 98.1; O2SAT 99
--- NOTE | 2024-08-27 12:06 | DVH ---
US BiLat Lower DVT HISTORY: Bilateral lower extremities DVT COMPARISON: US BI LAT UPPER DVT on DOS: 08/26/24, US BILAT LOWER DVT on DOS: 08/24/24, US RT LOWER DVT on DOS: 04/19/23 TECHNIQUE: Duplex doppler evaluation of the deep venous system of the lower extremity from the common femoral veins, superficial femoral vein, great saphenous vein, deep femoral vein, popliteal vein, an d calf veins, including color doppler and spectral/pulsed waveform analysis, was performed. FINDINGS: Right: - Common femoral vein: Compressible - Deep femoral vein: Compressible - Femoral vein: Compressible - Popliteal vein: Compressible - Posterior tibial vein: Waveforms present - Other: Nothing Left: - Common femoral vein: Compressible - Deep femoral vein: Compressible - Femoral vein: Compressible - Popliteal vein: Compressible - Other: Nothing IMPRESSION: No right or left lower extremity deep venous thrombosis.
[2024-08-27 13:26] VITALS: BP 134/91; PULSE 96; RESP 17; TEMP 98.4; O2SAT 98
--- NOTE | 2024-08-27 14:40 | DVHDS2 ---
Discharge Summary Date of Admission August 24, 2024 at 11:52 Date of Discharge: August 27, 2024 Admitting Diagnosis Abdominal pain with nausea and vomiting diarrhea Labs/Diagnostic Data: Laboratory Results Test 08/26/24 18:35 08/26/24 10:21 08/24/24 10:52 08/24/24 08:40 D-Dimer, Quantitative 0.42 mg/L FEU (0.0-0.49) White Blood Count 5.7 10^3/uL (4.4-10.8) Red Blood Count 4.42 10^6/uL (4.0-5.20) Hemoglobin 14.4 g/dL (12.2-16.2) Hematocrit 42.8 % (36.0-46.0) Mean Corpuscular Volume 96.8 fL (80.0-100.0) Mean Corpuscular Hemoglobin 32.5 pg (28.0-32.0) Mean Corpuscular Hemoglobin Concent 33.6 g/dL (32.0-36.0) Red Cell Distribution Width 13.0 % (11.8-14.3) Platelet Count 212 10^3/uL (140-450) Mean Platelet Volume 8.6 fL (6.9-10.8) Neutrophils (%) (Auto) 67.5 % (37.0-80.0) Lymphocytes (%) (Auto) 19.5 % (10.0-50.0) Monocytes (%) (Auto) 11.3 % (0.0-12.0) Eosinophils (%) (Auto) 0.8 % (0.0-7.0) Basophils (%) (Auto) 0.9 % (0.0-2.0) Neutrophils # (Auto) 3.9 10 ^3/uL (1.6-8.6) Lymphocytes # (Auto) 1.1 10 ^3/uL (0.4-5.4) Monocytes # (Auto) 0.6 10 ^3/uL (0-1.3) Eosinophils # (Auto) 0 10 ^3/uL (0-0.8) Basophils # (Auto) 0 10 ^3/uL (0-0.2) Nucleated Red Blood Cells 0.1 % Sodium Level 142 mmol/L (136-145) Potassium Level 3.9 mmol/L (3.5-5.1) Chloride Level 107 mmol/L (98-107) Carbon Dioxide Level 18 mmol/L (20-31) Anion Gap 17 (5-15) Blood Urea Nitrogen 12 mg/dL (9-23) Creatinine 1.28 mg/dL (0.550-1.02) Glomerular Filtration Rate Calc 48 mL/min (>90) BUN/Creatinine Ratio 9.4 (10.0-20.0) Serum Glucose 66 mg/dL (74-106) Calcium Level 10.5 mg/dL (8.7-10.4) Total Bilirubin 0.7 mg/dL (0.2-1.0) Aspartate Amino Transferase (AST) 15 U/L (13-40) Alanine Aminotransferase (ALT) 19 U/L (7-40) Alkaline Phosphatase 83 U/L (46-116) Total Protein 7.5 g/dL (5.7-8.2) Albumin 4.6 g/dL (3.2-4.8) Thyroid Stimulating Hormone (TSH) 0.46 uIU/mL (0.55-4.78) Urine Color Yellow (Yellow) Urine Clarity Clear (Clear) Urine pH 5.5 (5.0-9.0) Urine Specific [place] 1.024 (1.001-1.035) Urine Protein 1+ (Negative) Urine Ketones Negative (Negative) Urine Blood Negative /uL (Negative) Urine Nitrite Negative (Negative) Urine Bilirubin Negative (Negative) Urine Urobilinogen Normal mg/dL (Negative) Urine Leukocyte Esterase Negative /uL (Negative) Urine RBC 3 /hpf (0 - 4) Urine Microscopic WBC 2 /HPF (0-5) Urine Squamous Epithelial Cells Mod /hpf (<5) Urine Bacteria None seen /hpf (None Seen) Urine Hyaline Casts Few /lpf (0 - 2) Urine Mucus Few (None Seen) Urine Glucose Normal mg/dL (Normal) Lactate Dehydrogenase 204 U/L (120-246) Lipase 34 U/L (12-53) Carcinoembryonic Antigen 1.78 ng/mL (<=5.0) Other Laboratory Tests 08/26/24 10:21 Brief Hx & Hospital Course: 59-year-old lady admitted to the hospital from the emergency room with abdominal pain nausea vomiting diarrhea that was going on for six weeks or so. The patient condition improved during the hospital stay. She was able to tolerate food without vomiting and there was no more pain. She was asking to be discharged home. Patient had CT scan of the abdomen which was nonspecific with fluid filled small bowel loops with possible ileus or enterocolitis. Some wall thickening in the ascending colon that could have been secondary to peristalsis. GI consultation obtained. No interventions recommended. Condition at Discharge: Good Final Diagnosis/Problems List Gastroenteritis Abdominal pain with nausea vomiting diarrhea Lupus Seizures Hiatal hernia History of DVT in the right lower extremity/off Eliquis Coronary artery disease Hypertension Dyslipidemia Asthma History of CVA History of congestive heart failure History of [place] Obesity Discharge Disposition: Home Discharge Instruct/Medications Diet: Regular Activity: No Restrictions, As Tolerated Follow Up/Referral: PCP within one week Medications: Flagyl 500 mg 3 times a day and Cipro 250 mg 2 times a day for five. Resume previous home medications 35 Discharge Statement: "Patient was advised to return to the ER or call 911 if any headaches, dizziness, shortness of breath, chest pain, abdominal pain, bleeding, fevers, or worsening of medical condition. Patient was counseled about treatment plan, medications, possible side effects, patientverbalized understanding. All questions were answered to the best of my ability. This discharge took greater then 30 minutes in planning, reviewing documentation, counseling the patient, and discussing with other team members." ASSESSMENT ASSESSMENT Assessment Date of Service: August 27, 2024 Billing Provider: JO ANN REED MD Common Visit Codes: [id number] DISCH DAY >30min JO ANN REED MD August 27, 2024 14:40
[2024-08-27] MEDS ORDERED: METR-344 PO (14:41)
[2024-08-27] MEDS ORDERED: CIPR250T3 PO (14:41)
[2024-08-27 14:53] VITALS: BP 125/85; PULSE 105; RESP 18; TEMP 98.1; O2SAT 99
--- NOTE | 2024-08-27 22:51 | DVHPN2 ---
Progress Note - Dictate Date Seen: August 27, 2024 Medical Necessity Reason Pt with a Central, PICC or Fol: No Subjective No new complaints, patient seen at bedside She has no further episodes of nausea and vomiting Patient is requesting a soft mechanical diet Abdominal pain is improving vital signs Vital Sign Date Time Temp Pulse Resp B/P (MAP) Pulse Ox O2 Delivery O2 Flow Rate FiO2 08/27/24 14:53 98.1 105 18 99 08/27/24 13:26 134/91 (105) 08/27/24 08:00 Room Air* 0 21 Total Intake and Output 08/26/24 08/26/24 08/27/24 15:00 23:00 07:00 Intake Total 150 ml 1000 ml 150 ml Balance 150 ml 1000 ml 150 ml objective General: NAD, AAOX3 Chest: lung vernon clear to auscultation Heart: RRR, no murmur Abdomen: non-distended, no tenderness to palpation, +BS laboratory and microbiology Laboratory Tests 08/26/24 10:21 Test 08/26/24 10:21 Range/Units Serum Glucose 66 L 74-106 mg/dL CT SCAN ABD PELVIS IMPRESSION: 1. Postsurgical changes of left nephrectomy appear grossly stable on limited noncontrast enhanced exam. Stable appearing right renal cyst. 2. Nonspecific nondilated fluid-filled small bowel loops and liquid stool in the colon. Findings may be seen with ileus or enterocolitis in the appropriate clinical setting. No small bowel obstruction. 3. Focal luminal narrowing with apparent wall thickening in the ascending colon, may be due to peristalsis, however neoplasm, including malignancy can not be excluded. Additional areas of luminal narrowing of the colon are most likely due to peristalsis. Correlate with clinical findings. 4. Additional findings as detailed above. Problems(with codes): (1) Intractable abdominal pain (2) Colitis Prognosis Plan Patient is clinically improving Advance diet as tolerated Discharge planning as per hospitalist She was advised to follow up with a gastro group as an outpatient to review her recent EGD and colonoscopy report She was also given my contact information in case she would like to follow up with me as an outpatient Once again thank you for allowing me to participate in the care of this patient Dietary Evaluation Review Recommendations by RD: Increase Calorie Intake, Protein Supplementation Comments: 1. Ensure clear 240ml TID (ordered per ONS protocol) 2. advance diet as medically feasible Expected Outcomes/Goals: To main BW intake meets 75% estimated needs Food and Nutrition Intake (Sev: <50% est energy req 5days Interpretation of weight loss: >7.5% in 3 months Protein Calorie Malnutrition: Severe Is there a minimum of two crit: Yes Plan discussed with: Patient, Other (Nurse) WATSON BAUTISTA MD August 27, 2024 22:50
--- NOTE | 2024-08-29 09:11 | DVHPN2 ---
Progress Note - Dictate Date Seen: August 26, 2024 Medical Necessity Reason Pt with a Central, PICC or Fol: No Subjective PT WITH ABD PAIN NAUSEA VOMITING DIARRHEA ILEUS COLITIS PMH S/P LEFT NEPHRECTOMY SECONDARY TO CA S/P LEFT ADRENALECTOMY HTN ACCELERATED CVA COPD/ ASTHMA HX OF SLE HX OF DVT SECONDARY TO RENAL CELL CA LE VENOUS DOPPLER NEGATIVE vital signs Vital Sign Date Time Temp Pulse Resp B/P (MAP) Pulse Ox O2 Delivery O2 Flow Rate FiO2 08/27/24 14:53 98.1 105 18 99 08/27/24 13:26 134/91 (105) 08/27/24 08:00 Room Air* 0 21 laboratory and microbiology Laboratory Tests 08/26/24 10:21 Test 08/26/24 10:21 Range/Units Serum Glucose 66 L 74-106 mg/dL Problem List ABD PAIN NAUSEA VOMITING DIARRHEA ILEUS COLITIS PMH S/P LEFT NEPHRECTOMY SECONDARY TO CA S/P LEFT ADRENALECTOMY HTN ACCELERATED HFpEF DIASTOLIC DYSFUNCTION CVA COPD/ ASTHMA HX OF SLE HX OF DVT SECONDARY TO RENAL CELL CA LE VENOUS DOPPLER NEGATIVE Assessment/Plan ABX IV FLUIDS CORRECT K+ CONT ABX DC IN 2 DAYS Dietary Evaluation Review Recommendations by RD: Increase Calorie Intake, Protein Supplementation Comments: 1. Ensure clear 240ml TID (ordered per [facility]NS protocol) 2. advance diet as medically feasible Expected Outcomes/Goals: To main BW intake meets 75% estimated needs Food and Nutrition Intake (Sev: <50% est energy req 5days Interpretation of weight loss: >7.5% in 3 months Protein Calorie Malnutrition: Severe Is there a minimum of two crit: Yes Plan discussed with: Patient LAUREL POND MD August 29, 2024 09:11
--- NOTE | 2024-08-29 09:12 | DVHPN2 ---
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 LE VENOUS DOPPLER NEGATIVE vital signs Vital Sign Date Time Temp Pulse Resp B/P (MAP) Pulse Ox O2 Delivery O2 Flow Rate FiO2 08/27/24 14:53 98.1 105 18 99 08/27/24 13:26 134/91 (105) 08/27/24 08:00 Room Air* 0 21 laboratory and microbiology Laboratory Tests 08/26/24 10:21 Test 08/26/24 10:21 Range/Units Serum Glucose 66 L 74-106 mg/dL Problem List ABD PAIN NAUSEA VOMITING DIARRHEA ILEUS COLITIS PMH S/P LEFT NEPHRECTOMY SECONDARY TO CA S/P LEFT ADRENALECTOMY HTN ACCELERATED HFpEF DIASTOLIC DYSFUNCTION CVA COPD/ ASTHMA HX OF SLE 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 Ensure clear 240ml TID (ordered per [facility]NS protocol) 2. advance diet as medically feasible Expected Outcomes/Goals: To main BW intake meets 75% estimated needs Food and Nutrition Intake (Sev: <50% est energy req 5days Interpretation of weight loss: >7.5% in 3 months Protein Calorie Malnutrition: Severe Is there a minimum of two crit: Yes Plan discussed with: Patient LAUREL POND MD August 29, 2024 09:12
== END 2024-08-27 16:14 | disposition home or self-care (01) | DRG 391 ==
LOC: ER 08:11 → OVERFLOW 11:52 → WEST WING 13:38 → TELE-WESTW 08-25 23:55
PROVIDERS: ADMIT Student in an Organized Health Care Education/Training Program; ATTEND Student in an Organized Health Care Education/Training Program
DX: A09 Infectious gastroenteritis and colitis, unspecified (principal); N17.0 Acute kidney failure with tubular necrosis; I50.32 Chronic diastolic (congestive) heart failure; K56.7 Ileus, unspecified; N28.1 Cyst of kidney, acquired; E66.9 Obesity, unspecified; E78.5 Hyperlipidemia, unspecified; F17.210 Nicotine dependence, cigarettes, uncomplicated; I11.0 Hypertensive heart disease with heart failure; I25.10 Atherosclerotic heart disease of native coronary artery without angina pectoris; J44.89 Other specified chronic obstructive pulmonary disease; K44.9 Diaphragmatic hernia without obstruction or gangrene; M32.9 Systemic lupus erythematosus, unspecified; I25.2 Old myocardial infarction; Z80.3 Family history of malignant neoplasm of breast; Z82.49 Family history of ischemic heart disease and other diseases of the circulatory system; Z85.528 Personal history of other malignant neoplasm of kidney; Z86.718 Personal history of other venous thrombosis and embolism; Z86.73 Personal history of transient ischemic attack (TIA), and cerebral infarction without residual deficits; Z88.0 Allergy status to penicillin; Z90.5 Acquired absence of kidney; Z90.711 Acquired absence of uterus with remaining cervical stump; Z79.899 Other long term (current) drug therapy; Z79.01 Long term (current) use of anticoagulants; Z68.30 Body mass index [BMI] 30.0-30.9, adult; Z79.1 Long term (current) use of non-steroidal anti-inflammatories (NSAID)
CPT/HCPCS: 36415; 74176; 80053; 81001; 82378; 83615; 83690; 84443; 85025; 85379; 93005; 93970; 99291; G0378; J0692; J2405; J2470; J3490

== ENCOUNTER 2024-10-02 11:09 | Outpatient (CLI) | payer MEDICARE, MEDICAID ==
[~2024-10-02 11:09] MED LIST changes: +CIPR250T3 PO; +DULO1CAP6 PO; +HYDR-4491 PO; +METR-344 PO
[2024-10-02] MEDS ORDERED: READI-CAT 2 (BARIUM SULF)(VANILLA SMOOTHIE) 450ML ONE (11:16)
--- NOTE | 2024-10-03 05:20 | DVH ---
Exam: CT CT AB PEL WITH ORAL CON ONLY History: RLQ PAIN Comparison Study: CT CT AB PEL WO CON-NO ORAL OR IV on DOS: 08/24/24, CT CT AB PEL WITH IV CON ONLY on DOS: 05/01/24, CT CT AB PEL WITH IV CON ONLY on DOS: 09/29/23, [facility] on DOS: 12/25/21 Technique: Multidetector spiral CT of the abdomen was performed from lung bases to pubic symphysis. I maging was performed without IV contrast. Axial, coronal and sagittal multiplanar reformats were obta ined from the axial data set by the technologist. Radiation Dose : 1. Abdomen/Pelvis: CTDIvol 12.37 mGy, DLP 624.64 mGy*cm. Findings: Evaluation of solid organs is limited due to lack of intravenous contrast use. Lung Bases: Cardiomegaly Liver: The liver is normal in size. No focal lesions. Gallbladder and Biliary Tree: Unremarkable Spleen: Unremarkable Pancreas: The pancreas is grossly normal in appearance. Adrenal Glands: Unremarkable Kidneys: Right kidney is unremarkable. Partial left nephrectomy. Bladder: Grossly unremarkable for degree of distention. Bowel: The stomach is grossly normal in appearance. Short-segment bbik-wp-bzklvrll bowel wall thicken ing of the proximal ascending colon. The appendix is not visualized; however, no secondary findings o f acute appendicitis identified. Ascites: Absent Lymphadenopathy: No mesenteric, retroperitoneal or periportal lymphadenopathy. Abdominal Wall and Mesentery: Unremarkable. Vasculature: The visualized abdominal aorta is normal in size and caliber. There is extensive athero sclerotic calcification of the aorta and its branches. Evaluation of abdominal and pelvic vessels is limited due to lack of intravenous contrast. Pelvic Organs: The uterus is surgically absent. Musculoskeletal: No aggressive focal bony lesions, acute fractures or dislocation. IMPRESSION: Short-segment cnyb-kp-[id number] colonic bowel wall thickening. This corresponds to focal luminal narro wing and question on CT dated 08/24/2024. This is a nonspecific finding but recommend further evaluat ion with colonoscopy to exclude underlying neoplastic process. Clinical correlation advised.
== END 2024-10-02 17:00 | disposition home or self-care (01) ==
LOC: Rad HDHVI 11:09
PROVIDERS: ATTEND Internal Medicine Cardiovascular Disease
DX: K63.89 Other specified diseases of intestine (principal); R10.31 Right lower quadrant pain; I51.7 Cardiomegaly; I70.0 Atherosclerosis of aorta; Z90.710 Acquired absence of both cervix and uterus
CPT/HCPCS: 74176

== ENCOUNTER → 2024-10-11 | Outpatient (CLI) | payer MEDICARE, MEDICAID ==
[~2024-10-11] MED LIST changes: +CLON0.2T PO; +DICL1GEL59 EX; +FLEC100T PO; +IODIXANOL 320MG/ML 100ML BTL IV ONE; +IOHEXOL 350 MG/ML 100ML IJ ONE; +MAGN100T9 PO; +PANC3600 OR; +POTA-215 PO; +SUCR1TAB31 OR; +TRAM50TA2 PO; +UBRO100T2 PO
--- NOTE | 2024-10-11 13:13 | DVH ---
XY CHEST TWO VIEWS ROUTINE CLINICAL HISTORY: PRE OP CARDIAC CLEARANCE COMPARISON: CHEST TWO VIEWS ROUTINE on DOS: 01/23/21 TECHNIQUE: Frontal and lateral view of the chest was obtained FINDINGS: Lines and Tubes: None Lungs: No focal consolidation. Pleura: No effusion. No pneumothorax. Cardiomediastinal contours: Unremarkable Bones: No acute osseous abnormality. IMPRESSION: No acute cardiopulmonary disease.
== END | disposition home or self-care (01) ==
LOC: Rad HDHVI 08:54
PROVIDERS: ATTEND Internal Medicine Cardiovascular Disease
DX: Z01.818 Encounter for other preprocedural examination (principal); R07.9 Chest pain, unspecified
CPT/HCPCS: 71046; Q9967

== ENCOUNTER 2024-10-12 06:41 | Day surgery (SDC) | payer MEDICARE, MEDICAID ==
[2024-10-12] VITALS (7 sets, daily range): BP systolic 139–164; BP diastolic 77–89; PULSE 63–67; RESP 16–18; O2SAT 97–99
[~2024-10-12 06:41] MED LIST changes: -IODIXANOL 320MG/ML 100ML BTL IV ONE; -IOHEXOL 350 MG/ML 100ML IJ ONE
[2024-10-12] MEDS: ANGIOMAX 250 MG VIAL IV ONE (08:35)
[2024-10-12] MEDS: methylPREDNISolone SOD SUCC 125 MG/2 ML VL ONE (08:35)
[2024-10-12] MEDS: diphenhdrAMINE HCL 50 MG/1 ML VL ONE (08:35)
[2024-10-12] MEDS: SODIUM CHL 0.9% 50 ML ONE (08:36)
[2024-10-12] MEDS: fentaNYL CITRATE 100 MCG/2 ML VL ONE (08:36)
[2024-10-12] MEDS: MIDAZOLAM HCL 2MG/2ML 2ml VIAL (1mg/ml) ONE (08:36)
[2024-10-12] MEDS: LIDOCAINE 2%HCL (LOCAL ANESTH.) INJ 20ML MDV ONE ×2 (08:36→09:32)
[2024-10-12] MEDS: LIDOCAINE W/ EPINEPHRINE 2% INJ 20ML VIAL ONE (09:41)
[2024-10-12] MEDS: CLOPIDOGREL BISULFATE 75 MG TAB ONE (09:44)
[2024-10-12] MEDS: HYDROmorphone HCL 2 MG/ML VL/or syr ONE (10:14)
--- NOTE | 2024-10-12 10:49 | DVHOP ---
DATE OF SURGERY: 10/12/2024 PROCEDURE PERFORMED: * Selective left and right coronary angiography. * FFR of the proximal right coronary artery with FFR of 0.72. * Angioplasty with stent placement of the RCA with thrombectomy with Shockwave catheter of the proximal RCA with a 3.5 x 12 mm Shockwave thrombectomy catheter and a 4.0 x 18 mm Navarro Cayey stent was deployed across the proximal RCA. * There were no complications. The patient tolerated the procedure well. The patient received conscious sedation as well. DESCRIPTION OF PROCEDURE: The patient was prepped and draped in sterile condition. 1% Xylocaine was used to anesthetize the right groin. Using Cook needle, right femoral artery was engaged. Using Seldinger technique, a 6-Bruneian sheath was placed in the right femoral artery. Similarly, a 6-Bruneian sheath was introduced to the right femoral vein. Using a 6-Bruneian balloon-tipped thermodilutional catheter, right-sided pressure readings were obtained. Using 6-Bruneian JL4 catheter and 6-Bruneian JR4 catheter, left and right coronary angiography was performed. Using 6-Bruneian pigtail catheter ventriculogram was done. There were no complications. The patient tolerated the procedure well. RESULTS: * Left main patent. * Left anterior descending artery, mild intimal irregularity without any flow restrictive lesion. * Circumflex, mild intimal irregularity without any flow restrictive lesion. * Right coronary artery by FFR had a lesion of 0.72, was greater than 80% stenosis status post thrombectomy with Shockwave device followed by stent placement with a 4.0 x 18 mm Navarro [place] stent with less than 10% residual stenosis. * Left main without any flow restrictive lesion. * Right circumflex without any flow restrictive lesion. * Left anterior descending artery without any flow restrictive lesion. * EF was around 50% with an LVEDP of 20 mmHg with no gradient across the aortic valve. * Right heart catheterization showed an RA pressure of 8, RV pressure of 32/8, capillary wedge pressure of 20, and the patient's PA pressure of 32/20. CONCLUSION: The patient with 1. Elevated left ventricular end diastolic pressure. 2. Mildly elevated capillary wedge pressure, the patient with diastolic dysfunction. 3. The patient underwent angioplasty with stent placement of the proximal RCA following FFR Shockwave thrombectomy catheter, which was a 3.5 x 18 mm Shockwave device was applied. This was followed by deployment of a 4.0 x 18 mm Angela Cayey stent with less than now 10% residual stenosis. 4. The patient should have repeat echocardiogram in approximately 4-6 weeks to reassess the patient's LV function. Kang Jean MD SA/SUZANNE TID: [id number] RECEIPT: [id number]
--- NOTE | 2024-10-12 11:00 | DVHOP ---
DATE OF SURGERY: 10/12/2024 PROCEDURE PERFORMED: Loop recorder implantation since the patient was having a significant amount of palpitation. DESCRIPTION OF PROCEDURE: The patient was prepped and draped under sterile condition. The patient's left anterior chest wall was prepped surgically with ChloraPrep. Using 2% lidocaine, the anterior chest was then anesthetized adequately along the tract where the loop recorder to be inserted. A small 1 cm lesion was then excised. Then, the loop recorder was inserted into the anterior chest between the fourth and fifth rib per protocol. There were no complications. The patient tolerated the procedure well. RESULTS: The patient had a judo loop recorder Biomonitor IV, model number 640500, serial number of [id number]. Threshold parameters: The patient appears to be in AFib, bradycardic with a heart rate of 40 with episodes of systole lasting more than 3 seconds. The patient's ejection fraction at the time of the echocardiogram was 40-45%. The patient now had successful insertion of loop recorder to determine the dysrhythmia the patient is experiencing that is contributing to left heart dysfunction. The patient has been scheduled to undergo left and right heart catheterization as well. Kang Jean MD SA/JOSE A TID: [id number] RECEIPT: [id number]
--- NOTE | 2024-10-12 11:04 | DVHDS ---
DATE OF DISCHARGE: 10/12/2024 DISCHARGE DIAGNOSIS: The patient with palpitations. HOSPITAL COURSE: A loop recorder was inserted. The patient underwent successful angioplasty and stent placement of the right coronary artery. Following thrombectomy of the right coronary artery, FFR was recorded to be 0.72. The patient had a 4 mm x 18 mm Navarro Rose[place] stent deployed into the left anterior descending artery. There were no complications. The patient tolerated the procedure well. Rest of her constitutional symptoms such as abdominal pain, hip pain radiating to the lower extremity, history of hematuria with pulmonary hypertension. The patient should be evaluated for aggressive dual antiplatelet therapy and to determine the nature of her palpitation to see whether the patient's A-fib appropriate anticoagulation will also be initiated. The patient also has hypercoagulable state; therefore, the patient may be put on anti-factor 10 meds. Kang Jean MD SA/MIKE/WENDY TID: [id number] RECEIPT: [id number]
--- NOTE | 2024-10-12 11:11 | DVHHP ---
ADMIT DATE: 10/12/2024 HISTORY OF PRESENT ILLNESS: The patient who is 59 years old with history of morbid obesity, hypertension, hyperlipidemia, IODINE ALLERGY, and will be prepped for IODINE ALLERGY with Solu-Medrol and Benadryl prior to coronary angiography. The patient is having increasing symptoms of palpitation. An event monitor will also be deployed, which will be a loop recorder to determine the nature of the palpitation that she complains about associated with it with shortness of breath and almost syncopal episode. The patient now, because of ongoing chest pain and shortness of breath and diminished left ventricular ejection fraction despite the fact that the patient's atrial fibrillation, I cannot explain other than small vessel disease, therefore, treatment with antiplatelet agent may also be considered. Famotidine should be completed at least six weeks without aspiration because the patient's symptoms may be acid reflux related. She denies any fever, chills, melena or hematuria. She is hypercoagulable. Denies any seizure disorder. Denies any headaches, but she relates to having TIA-like symptoms that could account for long-term CVA if untreated. PHYSICAL EXAMINATION: HEENT: Pupils are equal and reactive. Funduscopic exam is benign. Sclerae anicteric. Extraocular muscles are intact. Oral mucosa moist. Posterior pharynx without any exudate. NEUROLOGIC: The patient is intact as well. ASSESSMENT AND PLAN: Thus, patient with hypertension, hyperlipidemia, [place] morbid obesity, now palpitation, most likely atrial fibrillation with rapid ventricular response. The patient is now scheduled to undergo left and right heart catheterization and to document appropriately the patient's appropriateness of palpitation treatment, a loop recorder has been placed. The patient underwent successful angioplasty, stent placement of the proximal RCA. We will continue to follow. The patient is stable at this time. DISCHARGE DISPOSITION: Home. ACTIVITIES: As instructed. Kang Jean MD SA/ROMEL/NEEL TID: [id number] RECEIPT: [id number]
== END 2024-10-12 12:40 | disposition home or self-care (01) ==
LOC: CATH 06:41
PROVIDERS: ATTEND Internal Medicine Cardiovascular Disease
DX: R06.02 Shortness of breath (principal); I25.10 Atherosclerotic heart disease of native coronary artery without angina pectoris; I11.0 Hypertensive heart disease with heart failure; I50.9 Heart failure, unspecified; F32.A Depression, unspecified; F41.9 Anxiety disorder, unspecified; E66.01 Morbid (severe) obesity due to excess calories; E78.5 Hyperlipidemia, unspecified; F17.210 Nicotine dependence, cigarettes, uncomplicated; Z86.711 Personal history of pulmonary embolism; Z90.710 Acquired absence of both cervix and uterus; Z88.0 Allergy status to penicillin; Z91.041 Radiographic dye allergy status; Z82.49 Family history of ischemic heart disease and other diseases of the circulatory system; Z79.899 Other long term (current) drug therapy
CPT/HCPCS: 0523T; 33285; 36415; 80048; 85025; 85610; 85730; 92972; 92973; 93460; C1760; C1761; C1764; C1769; C1874; C1887; C1894; C9600; J0583; J1171; J1200; J1644; J2250; J2919; J3010; J7030; Q9967; 99152; 99153

== ENCOUNTER 2024-10-23 14:33 | Outpatient (CLI) | payer MEDICARE, MEDICAID ==
[~2024-10-23 14:33] MED LIST changes: -CARI-277 PO; -CIPR250T3 PO; -CLON0.1T PO; -DOXE10CA PO; -DULO1CAP6 PO; -ESCI10TA PO; -HYDR-531 PO; -HYDR200T36 PO; -METR-344 PO; -ONDA-155 PO; -ROSU20TA14 PO
[2024-10-23 14:39] VITALS: BP 140/81; PULSE 100; RESP 18; O2SAT 97
[2024-10-23] MEDS: KETOROLAC TROMETH 60MG/2ML VIAL ONE (15:04)
[2024-10-23] MEDS: KETOROLAC TROMETH 60MG/2ML VIAL IM ONE (15:07)
[2024-10-23 15:11] VITALS: BP 122/74; PULSE 94; RESP 18; O2SAT 97
== END 2024-10-23 17:00 | disposition home or self-care (01) ==
LOC: CHF HDHVI 14:33
PROVIDERS: ATTEND Internal Medicine Cardiovascular Disease
DX: M54.89 Other dorsalgia (principal); I11.0 Hypertensive heart disease with heart failure; I50.9 Heart failure, unspecified; I25.10 Atherosclerotic heart disease of native coronary artery without angina pectoris; E78.5 Hyperlipidemia, unspecified; F41.9 Anxiety disorder, unspecified; F32.A Depression, unspecified; E66.01 Morbid (severe) obesity due to excess calories; Z68.30 Body mass index [BMI] 30.0-30.9, adult; Z87.891 Personal history of nicotine dependence; Z79.899 Other long term (current) drug therapy; Z86.711 Personal history of pulmonary embolism
CPT/HCPCS: 96372; G0463; J1885

== ENCOUNTER → 2024-11-03 | Outpatient (CLI) | payer MEDICARE, MEDICAID | END | disposition home or self-care (01) | LOC: Rad HDHVI 10:03 | PROVIDERS: ATTEND Internal Medicine Cardiovascular Disease | DX: R00.2 Palpitations (principal); R06.02 Shortness of breath | CPT/HCPCS: 93306 ==

== ENCOUNTER 2024-11-14 11:16 | Outpatient (CLI) | payer MEDICARE, MEDICAID ==
--- NOTE | 2024-11-14 12:54 | DVH ---
EXAM: XY CHEST TWO VIEWS ROUTINE CLINICAL HISTORY: SOB COMPARISON: XY CHEST TWO VIEWS ROUTINE on DOS: 10/11/24, CHEST TWO VIEWS ROUTINE on DOS: 01/23/21 TECHNIQUE: Frontal and lateral view of the chest was obtained FINDINGS: Lines and Tubes: None Lungs: No focal consolidation. Pleura: No effusion. No pneumothorax. Cardiomediastinal contours: Unremarkable Bones: No acute osseous abnormality. IMPRESSION: No acute cardiopulmonary disease.
== END 2024-11-14 17:00 | disposition home or self-care (01) ==
LOC: Rad HDHVI 11:16
PROVIDERS: ATTEND Internal Medicine Cardiovascular Disease
DX: R06.02 Shortness of breath (principal)
CPT/HCPCS: 71046

== ENCOUNTER 2024-12-13 12:06 | Outpatient (CLI) | payer MEDICARE, MEDICAID ==
[2024-12-13 12:15] VITALS: BP 139/84; PULSE 108; RESP 16; O2SAT 98
[2024-12-13 12:40] VITALS: BP 133/88; PULSE 107; RESP 16; O2SAT 98
[2024-12-13] MEDS ORDERED: FLE50T PO ×2 (14:46)
[2024-12-13] MEDS ORDERED: SEMA2INJ3 SC ×2 (14:46)
[2024-12-13] MEDS ORDERED: TRAM50TA2 PO ×2 (14:46)
[2024-12-13] MEDS ORDERED: ALPR0.5T PO ×2 (14:46)
[2024-12-13] MEDS ORDERED: GABA-339 PO ×2 (14:46)
[2024-12-13] MEDS ORDERED: ESCI20TA PO ×2 (14:46)
[2024-12-13] MEDS ORDERED: CLOP75TA28 PO ×2 (14:46)
[2024-12-14] MEDS ORDERED: LIDOCAINE 2%HCL (LOCAL ANESTH.) INJ 20ML MDV ONE (09:09)
--- NOTE | 2024-12-14 10:30 | DVHHP ---
ADMIT DATE: 12/13/2024 HISTORY OF PRESENT ILLNESS: The patient who is 59 years old with history of palpitation. She had a loop recorder implanted some two months ago but became nonfunctional because it moved. At the tip of the pacemaker, the sensor got bent. Therefore, we are not able to receive any recording. The patient is also tender on that side because of the displacement of the tip of the loop recorder. At this time, I believe the patient needs to have the loop recorder removed. Antibiotics should be initiated and the patient should after explantation wait at least for two to three weeks for complete healing without any evidence of infection for insertion of the new loop recorder. PAST MEDICAL HISTORY: Significant for: * Hypertension. * History of myocardial infarction, status post stenting x 1. * History of CVA. * Malignant hypertension in the past. * History of COPD. * Asthma. * Continued history of tobacco use. She smokes approximately five cigarettes a day. No evidence of any cardiac arrest in the past. No diabetes. No history of renal failure. No history of heart failure. CURRENT MEDICATIONS: Include Plavix, nifedipine, spironolactone, hydralazine, Bystolic, Tambocor for ventricular tachycardia, clonidine, Ozempic. PHYSICAL EXAMINATION: VITAL SIGNS: Blood pressure is 148/72, pulse is 70, O2 saturation 98% on room air. HEENT: Pupils are reactive. Funduscopic exam shows no AV nicking, no exudates, no papilledema. NECK: Carotid pulses are 2+ symmetrical. Normal upstroke and contour. No JVD appreciated. No cervical adenopathy. No supraclavicular adenopathy. PULMONARY: The patient has tenderness over the left anterior chest wall where the loop record is placed but no evidence of any exudates at this time. No skin breakdown. Clear to auscultation. No rhonchi. No wheezes. No egophony. CARDIOVASCULAR: Regular rate without S3, without S4. PMI is not displaced nor sustained. ABDOMEN: Obese. Unable to appreciate organomegaly. No epigastric tenderness. No suprapubic tenderness. No CVA tenderness. NEUROLOGIC: The patient is intact. EXTREMITIES: 1+ pulses bilaterally. Thus, the patient with accelerated hypertension, malignant hypertension in the past, diastolic dysfunction, history of myocardial infarction with stent placement. Clinically, the patient with loop recorder because of palpitations. She is on Tambocor because of both atrial tachycardia as well as for ventricular tachycardia. Therefore, loop record is to be removed because it became nonfunctional soon after the implantation because of displacement of the loop recorder. I will make further recommendations after the explantation of the loop recorder. Kang Jean MD SA/CANDY TID: [id number] RECEIPT: [id number]
--- NOTE | 2024-12-14 10:32 | DVHDS ---
DATE OF DISCHARGE: 12/14/2024 DISCHARGE DIAGNOSIS: The patient had nonfunctional loop recorder because of displacement, now underwent removal of the loop recorder. The patient is clinically stable. Continue all home medication including Plavix can be continued in about 48 hours. The patient is stable at the time of discharge. DISPOSITION: Home. ACTIVITY: As instructed. DIET: 2 gram sodium diet. Kang Jean MD SA/CANDY TID: [id number] RECEIPT: [id number]
== END 2024-12-13 17:00 | disposition home or self-care (01) ==
LOC: CHF HDHVI 12:06
PROVIDERS: ATTEND Internal Medicine Cardiovascular Disease
DX: Z01.810 Encounter for preprocedural cardiovascular examination (principal)
CPT/HCPCS: 93005; G0463

== ENCOUNTER 2024-12-14 06:31 | Day surgery (SDC) | payer MEDICARE, MEDICAID ==
[2024-12-13 13:23] LABS: Hematocrit 40.7 % (36.0-46.0); Hemoglobin 14.1 g/dL (12.2-16.2); Mean Corpuscular Hemoglobin 33.6 pg (28.0-32.0); Mean Corpuscular Volume 97.1 fL (80.0-100.0); Nucleated Red Blood Cells % 0.0 %
[2024-12-13 13:37] LABS: INR 0.94 (0.9-1.15); Partial Thromboplastin Time 29.9 SEC (24.5-34.5); Prothrombin Time 10.0 sec (9.3-11.8)
[2024-12-13 14:09] LABS: Potassium 4.8 mmol/L (3.5-5.1)
[2024-12-13 14:10] LABS: Sodium 140 mmol/L (136-145)
[2024-12-13 14:11] LABS: Anion Gap 5 (5-15); Calcium 9.9 mg/dL (8.7-10.4); Carbon Dioxide 22 mmol/L (20-31); Chloride 113 mmol/L (98-107)
[2024-12-13 14:16] LABS: BUN/Creatinine Ratio 17.3 (10.0-20.0); Blood Urea Nitrogen 30 mg/dL (9-23); Glucose 87 mg/dL (74-106)
[~2024-12-14] VITALS: Ht 167.6 cm; Wt 88.5 kg
[~2024-12-14 06:31] MED LIST changes: +ALPR0.5T PO; +CLOP75TA28 PO; +ESCI20TA PO; +FLE50T PO; +GABA-339 PO; +SEMA2INJ3 SC
[2024-12-14] MEDS ORDERED: fentaNYL CITRATE 100 MCG/2 ML VL ONE (09:42)
[2024-12-14] MEDS ORDERED: LIDOCAINE 2%HCL (LOCAL ANESTH.) INJ 20ML MDV ONE (09:43)
[2024-12-14] MEDS ORDERED: MIDAZOLAM HCL 2MG/2ML 2ml VIAL (1mg/ml) ONE (09:43)
[2024-12-14] MEDS ORDERED: HYDROmorphone HCL 2 MG/ML VL/or syr ONE (10:12)
[2024-12-14] MEDS ORDERED: ceFAZolin 1GM/50ML 50 ML IV ONE (10:14)
[2024-12-14 10:18] VITALS: BP 123/81; PULSE 82; RESP 12; O2SAT 99
[2024-12-14 10:30] VITALS: BP 131/81; PULSE 89; RESP 12; O2SAT 99
[2024-12-14 10:45] VITALS: BP 132/84; PULSE 82; RESP 12; O2SAT 98
--- NOTE | 2024-12-14 10:50 | DVHOP ---
DATE OF SURGERY: 12/14/2024 PROCEDURES TO BE PERFORMED: * Conscious sedation. * Explantation of loop recorder under fluoroscopic guidance. DESCRIPTION OF PROCEDURE: The patient was put under fluoroscopy. Under sterile condition, 1% lidocaine was injected into the site where the pacemaker was ____. A total of 30 mL of lidocaine was injected. Following that, a small 1 cm incision was made and using the Mckenna, we were able to remove the loop recorder without any complication. The incision site was then closed using 3 surgical clips ____ bebe. No complication. The patient tolerated the procedure. CONCLUSION: The patient had removal of Biotronik loop recorder at this time under sterile condition. Kang Jean MD SA/NEEL/MITCH TID: [id number] RECEIPT: [id number]
[2024-12-14 11:00] VITALS: BP 140/87; PULSE 77; RESP 13; O2SAT 100
[2024-12-14 11:15] VITALS: BP 138/81; PULSE 86; RESP 12; O2SAT 96
[2024-12-14 11:45] VITALS: BP 139/77; PULSE 74; RESP 12; O2SAT 96
== END 2024-12-14 12:15 | disposition home or self-care (01) ==
LOC: CATH 06:31
PROVIDERS: ATTEND Internal Medicine Cardiovascular Disease
DX: Z45.09 Encounter for adjustment and management of other cardiac device (principal); I50.9 Heart failure, unspecified; G47.00 Insomnia, unspecified; F17.210 Nicotine dependence, cigarettes, uncomplicated; F41.9 Anxiety disorder, unspecified; Z79.01 Long term (current) use of anticoagulants; Z79.899 Other long term (current) drug therapy; Z86.718 Personal history of other venous thrombosis and embolism; Z90.710 Acquired absence of both cervix and uterus; Z87.01 Personal history of pneumonia (recurrent); Z88.0 Allergy status to penicillin; Z88.5 Allergy status to narcotic agent; Z88.8 Allergy status to other drugs, medicaments and biological substances; Z91.041 Radiographic dye allergy status; Z82.5 Family history of asthma and other chronic lower respiratory diseases; Z82.2 Family history of deafness and hearing loss
CPT/HCPCS: 33286; 36415; 80048; 85025; 85610; 85730; J0690; J1171; J2250; J3010; J7040; 99152

== ENCOUNTER 2024-12-19 10:10 | Outpatient (CLI) | payer MEDICARE, MEDICAID ==
[2024-12-19 10:00] VITALS: BP 209/98; PULSE 69; RESP 18; O2SAT 100
[~2024-12-19 10:10] MED LIST changes: -ALPR0.25 PO; -APIX5TAB PO; -FLEC100T PO; -POTA-215 PO
[2024-12-19 10:55] VITALS: BP 125/61; PULSE 57; RESP 16; O2SAT 100
== END 2024-12-19 17:00 | disposition home or self-care (01) ==
LOC: CHF HDHVI 10:10
PROVIDERS: ATTEND Internal Medicine Cardiovascular Disease
DX: R07.9 Chest pain, unspecified (principal)
CPT/HCPCS: 93005; G0463